=== PATIENT | female | born 1990 | race Caucasian/White ===

== ENCOUNTER → 2018-05-16 10:09 | Outpatient (CLI) | payer BC, SELFPAY ==
[2018-05-16 09:13] VITALS: BMI 48.2
[2018-05-16 10:37] LABS: Absolute Lymphocyte Count 1.91 X10^3/ul (0.83-4.51); Absolute Neutrophil Count 5.2 X10^3/uL (2.0-7.7); Basophil# 0.03 X10^3/uL; Basophil% 0.4 % (0-1); Eosinophils% 6.2 % (0-5); Hematocrit 40.5 % (37-47); Hemoglobin 12.1 g/dl (12.0-15.0); Lymphocyte # 1.91 X10^3/ul (4.0); Lymphocyte % 23.7 % (19-41); Mean Corp Hgb Conc 29.9 g/gl (32-36); Mean Corpuscular Hgb 21.6 pg (27.0-32.0); Mean Corpuscular Volume 72.3 fL (81-99); Mean Platelet Vol. 10.8 fl (6.2-12.0); Monocyte# 0.43 X10^3/uL; Monocyte% 5.3 % (0-10); Neutrophil # 5.16 X10^3/uL (2.7-7.7); Neutrophil % 64.2 % (47-70); POSITIVE COUNT NO; POSITIVE DIFFERENTIAL NO; POSITIVE MORPHOLOGY YES; Platelet Count 286 K/mm3 (150-450); RBC Distribution Width SD 39.3 fl (35.1-43.9); White Blood Count 8.1 K/mm3 (4.4-11.0)
[2018-05-16 10:38] LABS: Differential Indicated SCAN CRITERIA MET
[2018-05-16 10:48] LABS: ALB/GLOB Ratio 0.9 RATIO (0.9-2.4); AST(SGOT) 103 U/L (15-37); Alanine Aminotransfer ALT/SGPT 93 U/L (13-56); Albumin, Serum 3.6 g/dL (3.2-5.0); Alkaline Phosphatase 66 U/L (45-117); Anion Gap 9 (5-15); BUN 13 mg/dL (7-18); BUN/Creat Ratio 17.1 RATIO (10-20); Calcium,Total 9.4 mg/dL (8.5-10.1); Chloride 102 mmol/L (98-107); Creatinine, Serum 0.76 mg/dL (0.55-1.02); EST Glomerular Filtration Rate 96 mL/min (>60); Est Glom Filt Rate - Afr Amer 116 mL/min (>60); Globulin 4.2 g/dL (2.2-4.2); Glucose 150 mg/dL (74-106); Potassium 4.4 mmol/L (3.5-5.1); Protein, Total 7.8 g/dL (6.4-8.2); Sodium Level 135 mmol/L (136-145)
[2018-05-16 10:50] LABS: hCG Titer Quant., Serum 33 mIU/mL (<9 non-preg)
[2018-05-16 13:51] LABS: Protein, Urine (Random) 66.8 mg/dL (<11.9); Protein:Creat Ratio 189 mg/g CRE (0-200)
== END ==
PROVIDERS: Referring Provider Nurse Practitioner Women's Health; Visit Provider Nurse Practitioner Women's Health
DX: O16.1 Unspecified maternal hypertension, first trimester (principal); O24.911 Unspecified diabetes mellitus in pregnancy, first trimester; Z3A.00 Weeks of gestation of pregnancy not specified
CPT/HCPCS: 36415; 80053; 82570; 84156; 84702; 85025

== ENCOUNTER → 2018-05-16 14:43 | Outpatient (CLI) | payer BC, SELFPAY ==
[2018-05-16 09:13] VITALS: BMI 48.2
--- NOTE | 2018-05-16 14:47 | US_ITS ---
STUDY: FIRST TRIMESTER OBSTETRICAL ULTRASOUND REASON FOR EXAM: Female, 28 years old. Gestational age. History of hypertension. Beta hCG of 33. LMP: April 17, 2018 TECHNIQUE: Transabdominal and Transvaginal TECHNICAL QUALITY: Adequate. PRIOR ULTRASOUND: None. FINDINGS: There is no demonstrated intrauterine gestational sac. The estimated gestation age (EGA) by LMP is 4 weeks, 1 days. The estimated date of delivery (CRIS) by LMP is January 22, 2019. The uterus measures 9.9 x 6.7 x 5.8 cm. The hyperechoic endometrium is prominent measuring 17.8 mm in thickness. There is no demonstrated uterine fibroid. The cervix is closed. The right ovary measures 3.3 x 2.4 x 2.3 cm. There is a 1.4 x 2.0 x 2.0 cm cyst/follicle. There is no visualized right adnexal mass or complex lesion. The left ovary measures 3.4 x 2.7 x 2.0 cm. There is no left ovarian cyst. There is no visualized left adnexal mass or complex lesion. There is no fluid in the cul de sac. US/Transvaginal w/Preg US IMPRESSION: 1. No evidence of intrauterine or ectopic . 2. Normal uterus. 3. Right ovarian cyst/dominant follicle. Electronically Signed: Raoul Rivera DO at 16:34 EST Tel [phone], Service support ,
== END ==
PROVIDERS: Referring Provider Nurse Practitioner Women's Health; Visit Provider Nurse Practitioner Women's Health
DX: I10 Essential (primary) hypertension (principal)
CPT/HCPCS: 76817

== ENCOUNTER 2018-05-22 16:52 | Emergency (ER) | payer BC, SELFPAY ==
[2018-05-20 08:51] VITALS: BMI 48.2
[2018-05-22 16:54] VITALS: BP 197/106; PULSE 105; RESP 16; TEMP 36.7; O2SAT 98; BMI 47.0
[2018-05-22 17:53] LABS: Absolute Lymphocyte Count 1.91 X10^3/ul (0.83-4.51); Absolute Neutrophil Count 4.8 X10^3/uL (2.0-7.7); Basophil# 0.02 X10^3/uL; Basophil% 0.3 % (0-1); Differential Indicated SCAN CRITERIA MET; Eosinophils% 5.3 % (0-5); Hematocrit 38.1 % (37-47); Hemoglobin 11.5 g/dl (12.0-15.0); Lymphocyte # 1.91 X10^3/ul (4.0); Lymphocyte % 25.3 % (19-41); Mean Corp Hgb Conc 30.2 g/gl (32-36); Mean Corpuscular Hgb 21.9 pg (27.0-32.0); Mean Corpuscular Volume 72.7 fL (81-99); Mean Platelet Vol. 10.1 fl (6.2-12.0); Monocyte# 0.39 X10^3/uL; Monocyte% 5.2 % (0-10); Neutrophil % 63.4 % (47-70); POSITIVE COUNT NO; POSITIVE DIFFERENTIAL NO; POSITIVE MORPHOLOGY YES; Platelet Count 279 K/mm3 (150-450); RBC Distribution Width CV 16.3 % (11.6-14.6); Red Blood Count 5.24 M/mm3 (4.2-5.4); White Blood Count 7.6 K/mm3 (4.4-11.0)
[2018-05-22 18:01] LABS: Anion Gap 12 (5-15); BUN 13 mg/dL (7-18); BUN/Creat Ratio 15.9 RATIO (10-20); Calcium,Total 9.2 mg/dL (8.5-10.1); Chloride 105 mmol/L (98-107); Creatinine, Serum 0.82 mg/dL (0.55-1.02); EST Glomerular Filtration Rate 88 mL/min (>60); Est Glom Filt Rate - Afr Amer 107 mL/min (>60); Estimated Creatinine Clearance 99.33 ml/min; Glucose 247 mg/dL (74-106); Potassium 3.6 mmol/L (3.5-5.1); Sodium Level 136 mmol/L (136-145)
[2018-05-22 18:09] LABS: Differential Comment SCANNED
[2018-05-22 18:26] LABS: hCG Titer Quant., Serum 83 mIU/mL (<9 non-preg)
--- NOTE | 2018-05-22 19:29 | ED.VISSUMM ---
- ER Visit Summary Date of Service: 05/22/18 Chief Complaint: Vaginal bleeding History of Present Illness: The patient is a 28 F who is here for vaginal bleeding. The patient is early in may be 5 weeks. She had an ultrasound less than 1 week ago that did not show any evidence of . Her quant was 33 at that time. Her blood type is a negative. She says her bleeding is about the level of a normal period for her. No other associated symptoms currently. Physical Examination: Afebrile. Blood pressure 197/106. Heart rate 105. Otherwise vitals normal. Alert and oriented. No acute distress. Heart regular. Lungs clear. Abdomen soft and nontender. Extremities nontender with no edema. Skin appears normal. Test Results: Quant is 83. Urinalysis pending. Hemoglobin 11.5 and CO2 is 19. Emergency Department Course and Treatment: Patient was discussed with Dr. Fernández. She advised do not repeat the ultrasound at this point. Patient will need a repeat quant in 48 hours, and I ordered this. The patient will have this done as an outpatient. She was advised to follow-up with Dr. Fernández early next week. She should return if she has increasing bleeding, greater than 2 pads saturated per hour for 2 hours or more. Return for any other issues. She was treated with RhoGam. Patient has known hypertension. Repeat was 173/98. 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 Treatment Plan: As above Disposition: Discharge Impression: 1. Threatened 2. Hypertension This note was generated with [employer] software. It may contain incorrect words, spelling, and punctuation that were not noted in review of the chart prior to signing ED Disposition - Plan for ED Patient: Chief Complaint: Vag Bld, Preg Referrals: Care Physician,No Primary [Primary Care Provider] -
--- NOTE | 2018-05-22 19:33 | ED.DCSUM_ITS ---
- ER Visit Summary Date of Service: 05/22/18 Chief Complaint: Vaginal bleeding History of Present Illness: The patient is a 28 F who is here for vaginal bleeding. The patient is early in may be 5 weeks. She had an ultrasound less than 1 week ago that did not show any evidence of . Her quant was 33 at that time. Her blood type is a negative. She says her bleeding is about the level of a normal period for her. No other associated symptoms currently. Physical Examination: Afebrile. Blood pressure 197/106. Heart rate 105. Otherwise vitals normal. Alert and oriented. No acute distress. Heart regular. Lungs clear. Abdomen soft and nontender. Extremities nontender with no edema. Skin appears normal. Test Results: Quant is 83. Urinalysis pending. Hemoglobin 11.5 and CO2 is 19. Emergency Department Course and Treatment: Patient was discussed with Dr. Fernández. She advised do not repeat the ultrasound at this point. Patient will need a repeat quant in 48 hours, and I ordered this. The patient will have this done as an outpatient. She was advised to follow-up with Dr. Fernández early next week. She should return if she has increasing bleeding, greater than 2 pads saturated per hour for 2 hours or more. Return for any other issues. She was treated with RhoGam. Patient has known hypertension. Repeat was 173/98. 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 Treatment Plan: As above Disposition: Discharge Impression: 1. Threatened 2. Hypertension This note was generated with [employer] software. It may contain incorrect words, spelling, and punctuation that were not noted in review of the chart prior to signing ED Disposition - Plan for ED Patient: Chief Complaint: Vag Bld, Preg Referrals: Care Physician,No Primary [Primary Care Provider] -
--- NOTE | 2018-05-22 19:33 | ED.DEP ---
ED Disposition - Plan for ED Patient: Chief Complaint: Vag Bld, Preg Instructions: ED Miscarriage Poss Referrals: Lashell Fernández MD [STAFF PHYSICIAN] - Additional Instructions: repeat hcg quant in 48 hours, follow up with ob next week
[2018-05-22 19:34] VITALS: BP 173/98; PULSE 96; RESP 16; O2SAT 97
[2018-05-22 21:39] LABS: Bacteria 0 SEEN /hpf (None Seen); Mucous, Urine 0 SEEN /hpf (<or=2+); White Blood Cells 0 SEEN /hpf (0-5)
[2018-05-22 21:44] LABS: Color, Urine Yellow (Yellow); Glucose, Dipstick 1000 mg/dl (Normal); Ketone-Dipstick 15 mg/dl (Negative); Leukocyte Esterase-Dipstick Negative /ul (Negative); Nitrite-Dipstick Negative (Negative); Occult Blood-Urine 150 /ul (Negative); Protein-Dipstick 30 mg/dl (Negative); Urine Bilirubin Dipstick Negative (Negative); Urine Clarity Clear (Clear); Urine Urobilinogen Normal (Normal)
[2018-05-22 21:48] LABS: Calcium Oxalate Crystals Ur 1+ /hpf (<or=2+); Red Blood Cells-Urine 0-5 SEEN /hpf (0-5); Squamous Epithelial Cells - UA 0-5 SEEN /hpf (5-10)
--- OUTSIDE RECORDS SUMMARY | 2018-07-27 17:03 | XMS RPT_ITS ---
:1990 Author Organization OHIP Care Team Providers Name Role Phone Yulissa Sanchez Attending Unavailable YULISSA SANCHEZ D.O. Referring Unavailable Yulissa Sanchez Primary Care Unavailable Shaista Kuo Attending Unavailable Shaista Kuo Attending Unavailable Shaista Kuo Referring Unavailable Primay Care Physicia, No Primary Care Unavailable Shaista Kuo Attending Unavailable Shaista Kuo Referring Unavailable Primay Care Physicia, No Primary Care Unavailable Lashell Fernández Attending Unavailable Primay Care Physicia, No Referring Unavailable Primay Care Physicia, No Primary Care Unavailable Piotr Freeman Attending Unavailable Lashell Fernández Referring Unavailable Lashell Fernández Attending Unavailable Primay Care Physicia, No Referring Unavailable Lashell Fernández Attending Unavailable Primay Care Physicia, No Primary Care Unavailable PROBLEMS PROBLEMS DATE TYPE CONDITION / CODE ATTENDING STATUS SOURCE 05/27/2018 Unknown O03.9 - Complete or Marcanthony, Active [place] unspecified [facility] spontaneous Hospital without Repository complication / O03.9(ICD-10) 05/16/2018 Unknown E11.9 - Type 2 [place], Molly Active [place] diabetes mellitus [facility] without Hospital complications / Repository E11.9(ICD-10) 05/16/2018 Unknown I10 - Essential AyaanShaista Active [place] (primary) [facility] hypertension / Hospital I10(ICD-10) Repository 05/16/2018 Unknown Z34.90 - Encounter AyaanShaista gordon Active [place] for supervision of [facility] normal , Hospital unspecified, Repository unspecified trimester / Z34.90(ICD-10) 05/16/2018 Unknown N91.2 - Amenorrhea, GreenfieldShaista gordon Active [place] unspecified / Community N91.2(ICD-10) Hospital Repository 08/01/2017 Admitting Chronic fatigue, [facility] Diagnosis unspecified / Yulissa System R53.82(ICD-10) Repository 08/01/2017 Admitting Type 2 diabetes [facility] [employer] Diagnosis mellitus without Yulissa System complications / Repository E11.9(ICD-10) 08/01/2017 Admitting senior living (current) [facility] [employer] Diagnosis use of insulin / Yulissa System Z79.4(ICD-10) Repository PROCEDURES PROCEDURES No Procedure Records FoundRESULTS RESULTS SPANISH SPEAKING NANNY OFFICE VISIT Observed: 05/27/2018 Status: F Source: [place] REPORT 5:01 PM [facility] REPOSITORY [facility] [address] [place] [address] [address] [place] [address] OFFICE VISIT Date of Service: 05/27/18 MR#: [id number] Acct: [id number] Name: VISHAL DIAZ Rep #: [id number] : 1990 Provider: Lashell Fernández MD Age/Sex: 28/F Location: [facility] Status: Signed Intake Vital Signs05/27/18 Body Mass Index (BMI) 47.0 05/27/18 Height 5 ft 7 in 05/27/18 Weight: 309 lb 05/27/18 Body Mass Index (BMI) 48.4 05/27/18 Blood Pressure 168/116 H Intake Visit Reasons: EARLY OB - ER FOLLOW UP FOR BLEEDING Flue Lining Dipper Required: No Is patient in pain?: No Allergies etonogestrel [From Nexplanon] Allergy (Verified 05/27/18 12:26) Swelling levonorgestrel [From Mirena] Allergy (Verified 05/27/18 12:26) Other Medications labetalol 200 mg tablet 200 mg PO BID #60 tab 05/16/18 [Rx Confirmed 05/27/18] citalopram 20 mg tablet 20 mg PO DAILY #30 tab 05/27/18 [Rx Confirmed 05/27/18] Is last menstrual period known: Yes Last Menstral Period: 04/17/18 Post menopausal: No Patient : Yes : No [facility] Medical History Hypertension (Chronic) Diabetes (Chronic) Abnormal Pap smear of cervix (Acute) Surgical History H/O removal of cyst (Resolved) S/P (Resolved) Family History Father Diabetes Kidney disease Hypertension Heart disease Social History Smoking Status: Current every day smoker alcohol intake: never substance use type: marijuana, other details: rare use caffeine: Yes what type of physical activity do you participate in: none seatbelt use: always do you feel safe at home: Yes additional social history: - Nikol[facility] EARLY OB - ER FOLLOW UP FOR BLEEDING: Details: VISHAL DIAZ is a 28 year old who presents for follow up of possible miscarriage. she has had bleeding persistent and heavy at times. she had a quant of 83 last week. she is stil having some left sided pain at ttimes and is wanting to conceive. she is not checking her blood sugars regularly. Female Reproductive History Last Menstral Period: 04/17/18 Cycle Length: 21-35 Pregancy History 4 Elective abortions Hx Para 2 Spontaneous abortions 2 Past Pregnancies Del. DateName GA/Weeks Outcome Route Bth WeighInfant GeLabor LgtAnesthesiDel LocatProvider FOB t n h a n Delivery Date: 10/21/16 No notes to display Delivery Date: 08/17/13 On 05/16/18 @ 09:12 Yumi Velázquez Pre-eclampsia ROS Const Constitutional: Denies poor appetite, headache(s), fever(s), increased appetite, weight gain, weight loss or fatigue GI GI: Reports as per HPI; denies vomiting, nausea, abdominal pain or constipation Exam Const General: cooperative, healthy appearing, comfortable, no acute distress, well developed Nutritional Appearance: average body habitus Orientation: alert HENMT Head: normal to inspection, normocephalic Neck Neck: normal visual inspection, trachea midline Thyroid: thyroid normal Resp Effort AND Inspection: normal respiratory effort Assessment AND Plan Problems 1. Complete O03.9 Plan recommend checking cbc and repeating quant- likely complete miscarriage. she is wanting to conceive declines control. i recommend referral to PCP for HTN and diabetes management. Orders Orders: Medications New: Coding Level of Care Code Off vis,est,level 3 Diagnoses Complete O03.9 05/27/18 1701 <Electronically signed by Lashell Fernández MD> Date Lashell Fernández MD Cosigner Signature: Date (if applicable) CC: CBC W/DIFF, AUTOMATED Collected: 05/27/2018 Status: F Source: [place] 1:17 PM [facility] REPOSITORY TYPE CODE TESTS RESULT OUT OF RANGE REFERENCE UNITS LAB L100.1000 4.4-11.0 K/mm3 Normal WBC 7.5 LAB L100.1200 4.2-5.4 M/mm3 Normal RBC 5.28 LAB L100.1300 12.0-15.0 g/dl Low HGB 11.7 LAB L100.1400 37-47 % Normal HCT 39.1 LAB L100.1500 81-99 fL Low MCV 74.1 LAB L100.1600 27.0-32.0 pg Low MCH 22.2 LAB L100.1700 32-36 g/gl Low MCHC 29.9 LAB L100.1810 11.6-14.6 % High RDW CV 17.6 LAB L100.1820 35.1-43.9 fl High RDW SD 45.6 LAB L100.1900 150-450 K/mm3 Normal PLT 268 LAB L100.2000 6.2-12.0 fl Normal MPV 10.6 LAB L100.2100 47-70 % Normal NEUT% 57.3 LAB L100.2200 19-41 % Normal LY% 27.0 LAB L100.2300 0-10 % Normal MONO% 5.7 LAB L100.2400 0-5 % High EO% 8.9 LAB L100.2500 0-1 % Normal BASO% 0.4 LAB L100.2550 0.0-0.9 % Normal IM GRAN % 0.700 Result Comment: IG% - Immature Granulocytes (promyelocytes, myelocytes and metamyelocytes) > 1% indicates that a LEFT SHIFT is Present. LAB L100.2620 2.0-7.7 X10 3/uL Absolute Neut Normal 4.3 LAB L100.2720 0.83-4.51 X10 3/ul Absolute Lymph Normal 2.03 LAB L100.5500 ADEQ PLT EST Normal ADEQUATE LAB L100.7300 ANISO Normal RARE LAB L100.7600 HYPOCHROMASIA Normal RARE Performed By: #### L100.0100 #### [facility] [address] [place], [address] HCG TITER QUANT., Collected: 05/27/2018 Status: F Source: [place] SERUM 1:17 PM [facility] REPOSITORY TYPE CODE TESTS RESULT OUT OF RANGE REFERENCE UNITS LAB L700.8000 <9 non-preg mIU/mL Normal HCG 4 QUANT. Performed By: #### L700.8000 #### [facility] [address] [place], [address] EMERGENCY DEPARTMENT Observed: 05/22/2018 Status: F Source: [place] SUMMARY 11:50 PM [facility] REPOSITORY [facility] Medical Records Department [address] [place] [address] Emergency Department Summary 05/22/18 192 MR#: [id number] Acct: [id number] Name: VISHAL DIAZ Rep #: [id number] : 1990 28 From: Piotr Freeman MD PCP: Care Physician, No Primary Status: DEP ER - ER Visit Summary Date of Service: 05/22/18 Chief Complaint: Vaginal bleeding History of Present Illness: The patient is a 28 F who is here for vaginal bleeding. The patient is early in may be 5 weeks. She had an ultrasound less than 1 week ago that did not show any evidence of . Her quant was 33 at that time. Her blood type is a negative. She says her bleeding is about the level of a normal period for her. No other associated symptoms currently. Physical Examination: Afebrile. Blood pressure 197/106. Heart rate 105. Otherwise vitals normal. Alert and oriented. No acute distress. Heart regular. Lungs clear. Abdomen soft and nontender. Extremities nontender with no edema. Skin appears normal. Test Results: Quant is 83. Urinalysis pending. Hemoglobin 11.5 and CO2 is 19. Emergency Department Course and Treatment: Patient was discussed with Dr. Fernández. She advised do not repeat the ultrasound at this point. Patient will need a repeat quant in 48 hours, and I ordered this. The patient will have this done as an outpatient. She was advised to follow-up with Dr. Fernández early next week. She should return if she has increasing bleeding, greater than 2 pads saturated per hour for 2 hours or more. Return for any other issues. She was treated with RhoGam. Patient has known hypertension. Repeat was 173/98. Her SPANISH SPEAKING NANNY is aware of her hypertension. Treatment Plan: As above Disposition: Discharge Impression: 1. Threatened 2. Hypertension This note was generated with Skytap dictation software. It may contain incorrect words, spelling, and punctuation that were not noted in review of the chart prior to signing ED Disposition - Plan for ED Patient: Chief Complaint: Vag Bld, Preg Referrals: Care Physician,No Primary [Primary Care Provider] - What to do if you have Problems For any increased pain, shortness of breath, bleeding, nausea or vomiting, chest pain, or any unexpected problems, contact your Primary Care Provider. Call [facility] ([phone]) or report to the closest Emergency Room. Call 911 if necessary. 05/22/18 8250 <Electronically signed by Piotr Freeman MD> Date Piotr Freeman MD Cosigner Signature (If Indicated): Date CC: No Primary Care Physician DISCHARGE INSTRUCTION Observed: 05/22/2018 Status: F Source: [place] 11:50 PM [facility] REPOSITORY [facility] Medical Records Department [address] [place] [address] Discharge Instruction 05/22/18 193 MR#: [id number] Acct: [id number] Name: VISHAL DIAZ Rep #: [id number] : 1990 28 From: Piotr Freeman MD PCP: Care Physician, No Primary Status: DEP ER ED Disposition - Plan for ED Patient: Chief Complaint: Vag Bld, Preg Instructions: ED Miscarriage Poss Referrals: Lashell Fernández MD [STAFF PHYSICIAN] - Additional Instructions: repeat hcg quant in 48 hours, follow up with ob next week What to do if you have Problems For any increased pain, shortness of breath, bleeding, nausea or vomiting, chest pain, or any unexpected problems, contact your Primary Care Provider. Call [facility] ([phone]) or report to the closest Emergency Room. Call 911 if necessary. 05/22/18 2530 <Electronically signed by Piotr Freeman MD> Date Piotr Freeman MD Cosigner Signature (If Indicated): Date CC: No Primary Care Physician URINALYSIS, COMPLETE Collected: 05/22/2018 Status: F Source: [place] [facility] Order Comment: Order Date: 05/22/18 How was Urine Obtained? CLEAN CATCH TYPE CODE TESTS RESULT OUT OF RANGE REFERENCE UNITS LAB L400.3000 Yellow COLOR Normal Yellow LAB L400.3050 Clear Normal CLARITY Clear LAB L400.3200 Normal mg/dl High GLUCOSE, UR 1000 LAB L400.3300 Negative mg/dL Normal BILIRUBIN URINE Negative LAB L400.3400 Negative mg/dl High 15 KETONE UR LAB L400.3465 1.002-1.030 Normal SP.GR. DIPSTX 1.030 LAB L400.3550 5.0 - 8.0 pH UR Normal 5.0 LAB L400.3600 Negative mg/dl High PROT 30 DIPSTX LAB L400.3700 Normal mg/dl Normal UROBILI Normal LAB L400.3750 Negative Normal NITRITE UR Negative LAB L400.3780 Negative /ul High OCCULT BLOOD-UR 150 LAB L400.3800 Negative /ul LEUK Normal ESTERASE Negative LAB L400.4050 0-5 /hpf WBC 0 Normal SEEN LAB L400.4100 0-5 /hpf Normal RBC-UA 0-5 SEEN LAB L400.4150 5-10 /hpf SQUAM Normal EPI 0-5 SEEN LAB L400.4300 None Seen /hpf 0 Normal BACTERIA SEEN LAB L400.4350 <or=2+ /hpf 0 Normal MUCUS, URINE SEEN LAB L400.4700 <or=2+ /hpf CA OX 1+ Normal CRYSTAL Performed By: #### L400.0001 #### [facility] [address] [facility] [place], [place], [address] ABO RH BLOOD TYPE, Collected: 05/22/2018 Status: F Source: [place] PATIENT 8:45 PM [facility] REPOSITORY TYPE CODE TESTS RESULT OUT OF RANGE REFERENCE UNITS LAB B10.0800 Test Normal BLOOD not performed TYPE GEL Performed By: #### B10.0010 #### [facility] [address] [facility] [place], [address] ABORH BLOOD TYPE, Collected: 05/22/2018 Status: F Source: [place] PATIENT 8:45 PM [facility] REPOSITORY TYPE CODE TESTS RESULT OUT OF RANGE REFERENCE UNITS LAB B100.1300 A Normal BLOOD NEGATIVE TYPE PT Performed By: #### B100.0000 #### [facility] [address] [place], [place], [address] CBC W/DIFF, AUTOMATED Collected: 05/22/2018 Status: F Source: [place] 5:35 PM [facility] REPOSITORY TYPE CODE TESTS RESULT OUT OF RANGE REFERENCE UNITS LAB L100.1000 4.4-11.0 K/mm3 Normal WBC 7.6 LAB L100.1200 4.2-5.4 M/mm3 Normal RBC 5.24 LAB L100.1300 12.0-15.0 g/dl Low HGB 11.5 LAB L100.1400 37-47 % Normal HCT 38.1 LAB L100.1500 81-99 fL Low MCV 72.7 LAB L100.1600 27.0-32.0 pg Low MCH 21.9 LAB L100.1700 32-36 g/gl Low MCHC 30.2 LAB L100.1810 11.6-14.6 % High RDW CV 16.3 LAB L100.1820 35.1-43.9 fl Normal RDW SD 42.0 LAB L100.1900 150-450 K/mm3 Normal PLT 279 LAB L100.2000 6.2-12.0 fl Normal MPV 10.1 LAB L100.2100 47-70 % Normal NEUT% 63.4 LAB L100.2200 19-41 % Normal LY% 25.3 LAB L100.2300 0-10 % Normal MONO% 5.2 LAB L100.2400 0-5 % High EO% 5.3 LAB L100.2500 0-1 % Normal BASO% 0.3 LAB L100.2550 0.0-0.9 % Normal IM GRAN % 0.500 Result Comment: IG% - Immature Granulocytes (promyelocytes, myelocytes and metamyelocytes) > 1% indicates that a LEFT SHIFT is Present. LAB L100.2620 2.0-7.7 X10 3/uL Normal Absolute Neut 4.8 LAB L100.2720 0.83-4.51 X10 3/ul Normal Absolute Lymph 1.91 LAB L100.4500 Normal SMEAR COMMENT SCANNED Result Comment: AUTO DIFF OK Performed By: #### L100.0100 #### [facility] [address] [place], [address] BASIC METABOLIC Collected: 05/22/2018 Status: F Source: [place] PROFILE (BMP) 5:35 PM [facility] REPOSITORY TYPE CODE TESTS RESULT OUT OF RANGE REFERENCE UNITS LAB L501.0100 74-106 mg/dL High GLU 247 Result Comment: Glucose result greater than or equal to 200 mg/dL suggests DIABETES MELLITUS per A.D.A. criteria. Please note revised GLUCOSE reference range effective 2017. LAB L501.1000 7-18 mg/dL Normal BUN 13 LAB L501.1100 0.55-1.02 mg/dL Normal CREAT,SERUM 0.82 Result Comment: The validity of the calculated GFR AND GFRAA in patients over 70 years has not been determined. Clinical correlation is essential. LAB L501.1110 >60 mL/min Normal EST GFR 88 Result Comment: Non- GFR Calc LAB L501.1115 >60 mL/min Normal EST GFR - AA 107 Result Comment: GFR Calc LAB L501.1255 ml/min Normal Estimated CRCL 99.33 LAB L501.1300 10-20 RATIO Normal BUN/CRE 15.9 LAB L501.2200 8.5-10 mg/dL Normal .1 CA 9.2 LAB L501.5300 136-14 mmol/L Normal 5 NA 136 LAB L501.5600 3.5-5. mmol/L Normal 1 K 3.6 LAB L501.5900 98-107 mmol/L Normal CL 105 LAB L501.6100 21.0-3 mmol/L Low 2.0 CO2 19.0 LAB L501.6200 5-15 Normal GAP 12 Performed By: #### L500.2500 #### [facility] [address] [place], [address] HCG TITER QUANT., Collected: 05/22/2018 Status: F Source: [place] SERUM 5:35 PM [facility] REPOSITORY TYPE CODE TESTS RESULT OUT OF RANGE REFERENCE UNITS LAB L700.8000 <9 non-preg mIU/mL High HCG 83 QUANT. Performed By: #### L700.8000 #### [facility] [address] [place], [address] RHOGAM Collected: 05/22/2018 Status: F Source: [place] 5:15 PM [facility] REPOSITORY TYPE CODE TESTS RESULT OUT OF REFERENCE UNITS RANGE LAB U100.2500 [id number] TRANSFUSED PRODUCT: Rho(D) Immune Globulin RhoGam COUNT: 1 Performed By: #### U100.2500 #### [facility] - refer to report for specific site OFFICE VISIT REPORT Observed: 05/20/2018 Status: F Source: [place] 1:50 PM [facility] REPOSITORY [address] [place] [address] OFFICE VISIT Date of Service: 05/20/18 MR#: [id number] Acct: [id number] Patient: LILLY DIAZANDA Riki Rep #: [id number] : 1990 Provider: Lashell Fernández MD Age/Sex: 28/F Location: [facility] Status: Signed Intake Vital Signs05/20/18 Body Mass Index (BMI) 48.2 05/20/18 Height 5 ft 7 in 05/20/18 Blood Pressure 168/102 H Intake Visit Reasons: BP CHECK Flue Lining Dipper Required: No Allergies No Known Allergies Allergy (Verified 05/20/18 08:51) Medications labetalol 200 mg tablet 200 mg PO BID #60 tab 05/16/18 [Rx Confirmed 05/20/18] Post menopausal: No Patient : Yes 05/20/18 1350 <Electronically signed by Lashell Fernández MD> Date Lashell Fernández MD Cosigner Signature: Date (if applicable) CC: TRANSVAGINAL W/PREG US Observed: 05/16/2018 Status: F Source: [place] 2:47 PM [facility] REPOSITORY [facility] Imaging Services [address] [place] [address] Transvaginal w/Preg US MR#: [id number] Acct: [id number] Name: VISHAL DIAZ Rep #: [id number] : 1990 F 28 From: Raoul Rivera DO PCP: Care Physician, No Primary Status: REG CLI Study: Transvaginal w/Preg US Date of Exam: 05/16/18 Exam# [id number] Ordering Dr: Shaista Kuo BARBER STYLIST-C STUDY: FIRST TRIMESTER OBSTETRICAL ULTRASOUND REASON FOR EXAM: Female, 28 years old. Gestational age. History of hypertension. Beta hCG of 33. LMP: April 17, 2018 TECHNIQUE: Transabdominal and Transvaginal TECHNICAL QUALITY: Adequate. PRIOR ULTRASOUND: None. FINDINGS: There is no demonstrated intrauterine gestational sac. The estimated gestation age (EGA) by LMP is 4 weeks, 1 days. The estimated date of delivery (CRIS) by LMP is January 22, 2019. The uterus measures 9.9 x 6.7 x 5.8 cm. The hyperechoic endometrium is prominent measuring 17.8 mm in thickness. There is no demonstrated uterine fibroid. The cervix is closed. The right ovary measures 3.3 x 2.4 x 2.3 cm. There is a 1.4 x 2.0 x 2.0 cm cyst/follicle. There is no visualized right adnexal mass or complex lesion. The left ovary measures 3.4 x 2.7 x 2.0 cm. There is no left ovarian cyst. There is no visualized left adnexal mass or complex lesion. There is no fluid in the cul de sac. US/Transvaginal w/Preg US IMPRESSION: 1. No evidence of intrauterine or ectopic . 2. Normal uterus. 3. Right ovarian cyst/dominant follicle. Electronically Signed: Raoul Rivera DO at 16:34 EST Tel [phone], Service support , CC: TIMMY Kuo; No Primary Care Physician Commercial Interior Designer: Signed PROTEIN+CREATININE Collected: Status: F Source: [place] RATIO,URINE 05/16/2018 1:24 PM [facility] REPOSITORY TYPE CODE TESTS RESULT OUT OF RANGE REFERENCE UNITS LAB L501.1200 NO RANGE EST. mg/dL Normal UR CREAT 354.00 LAB L501.1930 <11.9 mg/dL High 66.8 PROTEIN,UR.R AN. LAB L501.1940 0-200 mg/g CRE Normal PROT:CRE 189 RATIO Performed By: #### L501.0900 #### [facility] [address] [place], [address] CBC W/DIFF, AUTOMATED Collected: 05/16/2018 Status: F Source: [place] 10:14 AM [facility] REPOSITORY TYPE CODE TESTS RESULT OUT OF RANGE REFERENCE UNITS LAB L100.1000 4.4-11.0 K/mm3 Normal WBC 8.1 LAB L100.1200 4.2-5.4 M/mm3 High RBC 5.60 LAB L100.1300 12.0-15.0 g/dl Normal HGB 12.1 LAB L100.1400 37-47 % Normal HCT 40.5 LAB L100.1500 81-99 fL Low MCV 72.3 LAB L100.1600 27.0-32.0 pg Low MCH 21.6 LAB L100.1700 32-36 g/gl Low MCHC 29.9 LAB L100.1810 11.6-14.6 % High RDW CV 15.0 LAB L100.1820 35.1-43.9 fl Normal RDW SD 39.3 LAB L100.1900 150-450 K/mm3 Normal PLT 286 LAB L100.2000 6.2-12.0 fl Normal MPV 10.8 LAB L100.2100 47-70 % Normal NEUT% 64.2 LAB L100.2200 19-41 % Normal LY% 23.7 LAB L100.2300 0-10 % Normal MONO% 5.3 LAB L100.2400 0-5 % High EO% 6.2 LAB L100.2500 0-1 % Normal BASO% 0.4 LAB L100.2550 0.0-0.9 % Normal IM GRAN % 0.200 Result Comment: IG% - Immature Granulocytes (promyelocytes, myelocytes and metamyelocytes) > 1% indicates that a LEFT SHIFT is Present. LAB L100.2620 2.0-7.7 X10 3/uL Normal Absolute Neut 5.2 LAB L100.2720 0.83-4.51 X10 3/ul Normal Absolute Lymph 1.91 Performed By: #### L100.0100 #### [facility] [address] [place], [address] COMPREHENSIVE METABOLIC Collected: 05/16/2018 Status: F Source: [place] [facility] 10:14 AM [facility] REPOSITORY TYPE CODE TESTS RESULT OUT OF RANGE REFERENCE UNITS LAB L501.0100 74-106 mg/dL High GLU 150 Result Comment: Fasting Glucose result greater than or equal to 126 mg/dL suggests DIABETES MELLITUS per A.D.A. criteria. Please note revised GLUCOSE reference range effective 2017. LAB L501.1000 7-18 mg/dL Normal BUN 13 LAB L501.1100 0.55-1.02 mg/dL Normal CREAT,SERUM 0.76 Result Comment: The validity of the calculated GFR AND GFRAA in patients over 70 years has not been determined. Clinical correlation is essential. LAB L501.1110 >60 mL/min Normal EST GFR 96 Result Comment: Non- GFR Calc LAB L501.1115 >60 mL/min Normal EST GFR - AA 116 Result Comment: GFR Calc LAB L501.1300 10-20 RATIO Normal BUN/CRE 17.1 LAB L501.1500 6.4-8.2 g/dL T Normal PROT 7.8 LAB L501.1800 3.2-5.0 g/dL Normal ALB 3.6 LAB L501.1950 2.2-4.2 g/dL Normal GLOB 4.2 LAB L501.2000 0.9-2.4 RATIO Normal A/G 0.9 LAB L501.2200 8.5-10.1 mg/dL CA Normal 9.4 LAB L501.4100 15-37 U/L High AST 103 LAB L501.4305 45-117 U/L Normal ALK P 66 LAB L501.4405 13-56 U/L High ALT 93 LAB L501.4600 0.20-1.00 mg/dL T Normal BILI 0.50 LAB L501.5300 136-145 mmol/L Low NA 135 LAB L501.5600 3.5-5.1 mmol/L K Normal 4.4 LAB L501.5900 98-107 mmol/L CL Normal 102 LAB L501.6100 21.0-32.0 mmol/L Normal CO2 24.0 LAB L501.6200 5-15 Normal GAP 9 Performed By: #### L500.4050 #### [facility] [address] [place], [address] HCG TITER QUANT., Collected: 05/16/2018 Status: F Source: [place] SERUM 10:14 AM [facility] REPOSITORY TYPE CODE TESTS RESULT OUT OF RANGE REFERENCE UNITS LAB L700.8000 <9 non-preg mIU/mL High HCG 33 QUANT. Performed By: #### L700.8000 #### [facility] [address] [place], [address] SPANISH SPEAKING NANNY OFFICE VISIT Observed: 05/16/2018 Status: F Source: [place] REPORT 10:04 AM [facility] REPOSITORY [facility] [address] [place] [address] OFFICE VISIT Date of Service: 05/16/18 MR#: [id number] Acct: [id number] Name: VISHAL DIAZ Rep #: [id number] : 1990 Provider: TIMMY Kuo Age/Sex: 28/F Location: [facility] Status: Signed Intake Vital Signs05/16/18 Height 5 ft 7 in 05/16/18 Weight: 307 lb 8 oz 05/16/18 Body Mass Index (BMI) 48.2 05/16/18 Blood Pressure 178/110 H Intake Visit Reasons: PAINFUL/HEAVY PERIODS Flue Lining Dipper Required: No Is patient in pain?: No Allergies No Known Allergies Allergy (Verified 05/16/18 09:05) Medications labetalol 200 mg tablet 200 mg PO BID #60 tab 05/16/18 [Rx Confirmed 05/16/18] Is last menstrual period known: Yes Last Menstral Period: 04/17/18 Post menopausal: No Patient : Yes : No [facility] Medical History Hypertension (Chronic) Diabetes (Chronic) Abnormal Pap smear of cervix (Acute) Surgical History H/O removal of cyst (Resolved) S/P (Resolved) Family History Father Diabetes Kidney disease Hypertension Heart disease Social History Smoking Status: Former smoker alcohol intake: never substance use type: marijuana, other details: rare use caffeine: Yes what type of physical activity do you participate in: none seatbelt use: always do you feel safe at home: Yes additional social history: - Nikolay HPI PAINFUL/HEAVY PERIODS: Details: VISHAL DIAZ is a 28 year old who presents for new patient originally scheduled to discuss heavy and painful menses but had positive urine tests X 3 this week. LMP 04/17/18=4wk 1day CRIS 01/24/19 She states that she is type 2 diabetic and history of hypertension. Stopped her labetalol and metformin in November. No reason given. She denies headaches or vision changes. She has a daughter 19 mo delivered in [place]. Grav 4/2 C section X 2 Female Reproductive History Last Menstral Period: 04/17/18 Pregancy History 4 Elective abortions Hx Para 2 Spontaneous abortions 2 Past Pregnancies Del. DateName GA/Weeks Outcome Route Bth WeighInfant GeLabor LgtAnesthesiDel LocatProvider FOB t n h a n Delivery Date: 10/21/16 No notes to display Delivery Date: 12/21/12 On 05/16/18 @ 09:12 Yumi Velázquez Pre-eclampsia ROS Const Constitutional: Reports as per HPI GI GI: Denies abdominal pain, change in bowel habits, nausea or vomiting : Reports vaginal itching Exam Const General: cooperative, no acute distress Nutritional Appearance: obese morbidy Orientation: oriented x3 Eyes General: appearance normal, both eyes and all related structures Resp Effort AND Inspection: normal respiratory effort Results BMSPREGUR Office , Urine Positive Last Edit by Yumi Velázquez on 05/16/18 09:46 Assessment AND Plan Problems 1. Early stage of Z34.90 2. Essential hypertension I10 3. Type 2 diabetes mellitus without complication, without long-term current use of insulin E11.9 4. Obesity, morbid, BMI 40.0-49.9 E66.01 Plan CBC, CMP, Urine protein creatinine ratio HCG quant BP checks at home-has cuff Seek medical attention with headache or vision changes Start vitamin Restart labetalol 200mg bid This patient was discussed with Dr. Jolene HOOD BP check 3 days. NOB 3-4 wk Orders Orders: Medications New: Discontinued: Coding Level of Care Code Off vis,new,level 3 Diagnoses Early stage of Z34.90 Essential hypertension I10 Hypertension type: essential hypertension Type 2 diabetes mellitus without complication, without long- term current use of insulin E11.9 Diabetes mellitus type: type 2 Diabetes mellitus cricket coach insulin use: without fpc use Diabetes mellitus complication status: without complication Obesity, morbid, BMI 40.0-49.9 E66.01 05/16/18 1004 <Electronically signed by hSaista POWER> Date Shaista POWER Cosigner Signature: Date (if applicable) CC: ALLERGIES ALLERGIES DATE TYPE / CODE NAME / CODE REACTION SEVERITY SOURCE 05/27/2018 Drug levonorgestre Other Unknown [facility] Allergy/4160 l/[id number]( Hospital 53404(SNOMED RXNORM) Repository CT) 05/27/2018 Drug etonogestrel/ Swelling Unknown [facility] Allergy/4160 [id number]( Hospital 46164(SNOMED NORM) Repository CT) 05/20/2018 Drug No Known Unknown [facility] Allergy/4160 Allergies/F00 Hospital [facility](SNOMED 3048148(RXNOR Repository CT) M) ENCOUNTERS ENCOUNTERS ADMIT/DISCHARGE ACCOUNT NUMBER ADMITTING ENCOUNTER LOCATION SOURCE CLASS 05/27/2018 [id number] Ambulatory [facility] ding:PAVLAB Repository 05/27/2018/05/27/19 [id number] Ambulatory BMSBuilding: [place] 19 BMS.[facility] Repository 05/22/2018/05/22/19 [id number] Emergency [facility] 19 [facility] ding:ED Repository 05/20/2018/05/20/19 [id number] Ambulatory BMSBuilding: [place] 19 BMS[facility] Repository 05/16/2018 [id number] Ambulatory [facility] ding:US Repository 05/16/2018 [id number] Ambulatory [facility] ding:PAVLAB Repository 05/16/2018/05/16/19 [id number] Ambulatory BMSBuilding: [place] 19 BMS.[facility] Repository 08/01/2017 [id number] Ambulatory [facility] Repository PAYERS PAYERS ENCOUNTER GUARANTOR PAYER SUBSCRIBER SOURCE 05/27/2018 VISHAL Lyn Primary NIKOLAY BELKNAPDOB: [place] [id number] Insurance:ANTHEMPolic [id number] FISHER y Number: [place], [place] [id number] Repository [address]Lmp: (330) liang Date:1320-99-55EY [phone] () [address]EAZRQCJ, [place] [address]TK: 05/27/2018 Secondary NOT GIVENUNK [place] Insurance:SELF PAY [facility] Number: Effective Repository Date:2018-05-27 05/27/2018 VISHAL Lyn Primary NIKOLAY BELGARYAPDOB: [place] [id number] Insurance:ANTHEMPolic [id number] [facility] y Number: [place], [place] [id number] Repository [address]Ojc: (330) liang Date:1221-21-62SR [phone] () [address]DGAEIK, [place] [address]HU: 05/27/2018 Secondary NOT GIVENUNK [place] Insurance:SELF PAY [facility] Number: Effective Repository Date:2018-05-27 05/22/2018 VISHAL Lyn Primary NIKOLAY BELGARYAPDOB: [place] [id number] Insurance:ANTHEMPolic [id number] [facility] y Number: [place], [place] [id number] Repository [address]Aga: (330) liang Date:9622-63-42DC [phone] () [address]LTNIYFUASIA [place] [address]OS: 05/22/2018 Secondary NOT GIVENUNK [place] Insurance:SELF PAY [facility] Number: Effective Repository Date:2018-05-22 05/20/2018 VISHAL Lyn Primary NIKOLAY BELKNAPDOB: [place] [id number] Insurance:ANTHEMPolic [id number] Community FISHER y Number: [place], [place] [id number] Repository [address]Zcb: (330) liang Date:8737-99-62PX [phone] () [address]ITIOLECASIA JACKSON [address]JQ: 05/20/2018 Secondary NOT GIVENUNK [place] Insurance:SELF PAY [facility] Number: Effective Repository Date:2018-05-20 05/16/2018 VISHAL Lyn Primary NIKOLAY BELKNAPDOB: [place] [id number] Insurance:ANTHEMPolic [id number] Community FISHER y Number: [place], [place] [id number] Repository [address]Tjh: (330) liang Date:0167-30-05WL [phone] () [address]RRCAFBU, [place] [address]XA: 05/16/2018 Secondary NOT GIVENUNK [place] Insurance:SELF PAY [facility] Number: Effective Repository Date:2018-05-16 05/16/2018 VISHAL Lyn Primary NIKOLAY BELKNAPDOB: [place] [id number] Insurance:ANTHEMPolic [id number] Community FISHER y Number: [place], [place] [id number] Repository [address]Wsp: (330) liang Date:6715-22-01UQ [phone] () [address]ACLOWOQ, [place] [address]BS: 05/16/2018 Secondary NOT GIVENUNK [place] Insurance:SELF PAY [facility] Number: Effective Repository Date:2018-05-16 05/16/2018 VISHAL Lyn Primary NIKOLAY BELKNAPDOB: [place] [id number] Insurance:ANTHEMPolic [id number] [facility] Number: [place] [id number] Repository [address]Vof: (048) liang Date:4358-51-93BQ [phone] () [address]PXLMIDH, [place] [address]FT: 05/16/2018 Secondary NOT GIVENUNK [place] Insurance:SELF PAY [facility] Number: Effective Repository Date:2018-05-16 08/01/2017 Vishal M Primary [facility] BelknapDOB: Insurance:[employer] [place] Blue BelgaryapDOB: System Cross Blue [id number] Repository [facility] Number: Tiff[place], Effective Date: [place] [address]Lqm: ()
== END 2018-05-22 22:23 | disposition home or self-care (01) ==
PROVIDERS: Emergency Provider Emergency Medicine; Referring Provider Obstetrics & Gynecology
DX: O20.0 Threatened abortion (principal); Z3A.01 Less than 8 weeks gestation of pregnancy; I10 Essential (primary) hypertension; E11.9 Type 2 diabetes mellitus without complications; Z72.0 Tobacco use
CPT/HCPCS: 80048; 81001; 84702; 85025; 86900; 86901; 90384; 99283; A4216; J2790

== ENCOUNTER → 2018-05-27 13:12 | Outpatient (CLI) | payer BC, SELFPAY ==
[2018-05-27 13:02] VITALS: BMI 47.0
[2018-05-27 13:59] LABS: Absolute Lymphocyte Count 2.03 X10^3/ul (0.83-4.51); Absolute Neutrophil Count 4.3 X10^3/uL (2.0-7.7); Basophil# 0.03 X10^3/uL; Basophil% 0.4 % (0-1); Differential Indicated SCAN CRITERIA MET; Eosinophil# 0.67 X10^3/uL; Eosinophils% 8.9 % (0-5); Hematocrit 39.1 % (37-47); Hemoglobin 11.7 g/dl (12.0-15.0); Lymphocyte # 2.03 X10^3/ul (4.0); Mean Corp Hgb Conc 29.9 g/gl (32-36); Mean Corpuscular Hgb 22.2 pg (27.0-32.0); Mean Corpuscular Volume 74.1 fL (81-99); Mean Platelet Vol. 10.6 fl (6.2-12.0); Monocyte# 0.43 X10^3/uL; Monocyte% 5.7 % (0-10); Neutrophil # 4.32 X10^3/uL (2.7-7.7); Neutrophil % 57.3 % (47-70); POSITIVE COUNT NO; POSITIVE DIFFERENTIAL NO; POSITIVE MORPHOLOGY YES; Platelet Count 268 K/mm3 (150-450); RBC Distribution Width CV 17.6 % (11.6-14.6); RBC Distribution Width SD 45.6 fl (35.1-43.9); Red Blood Count 5.28 M/mm3 (4.2-5.4); White Blood Count 7.5 K/mm3 (4.4-11.0)
[2018-05-27 14:11] LABS: hCG Titer Quant., Serum 4 mIU/mL (<9 non-preg)
[2018-05-27 14:24] LABS: Anisocytosis RARE; Hypochromasia RARE; Platelet Estimate ADEQUATE (ADEQ)
--- OUTSIDE RECORDS SUMMARY | 2018-07-30 00:38 | XMS RPT_ITS ---
[...] Unknown O03.9 - Complete or Marcanthony, Active [place] unspecified [facility] spontaneous Hospital without Repository complication / O03.9(ICD-10) 05/16/2018 Unknown E11.9 - Type 2 Lovell, Molly Active [place] diabetes mellitus [facility] without Hospital complications / Repository E11.9(ICD-10) 05/16/2018 Unknown I10 - Essential AyaanShaista Active [place] (primary) [facility] hypertension / Hospital I10(ICD-10) Repository 05/16/2018 Unknown Z34.90 - Encounter AyaanShaista gordon Active [place] for supervision of [facility] normal , Hospital unspecified, Repository unspecified trimester / Z34.90(ICD-10) 05/16/2018 Unknown N91.2 - Amenorrhea, LovellShaista gordon Active [place] unspecified / Community N91.2(ICD-10) Hospital Repository 08/01/2017 Admitting Chronic fatigue, [facility] [employer] Diagnosis unspecified / [place] System R53.82(ICD-10) Repository 08/01/2017 Admitting Type 2 diabetes [facility] [employer] Diagnosis mellitus without [facility] complications / Repository E11.9(ICD-10) 08/01/2017 Admitting [facility] (current) [facility] [employer] Diagnosis use of insulin / [place] System Z79.4(ICD-10) Repository PROCEDURES PROCEDURES No Procedure Records FoundRESULTS RESULTS BENCH EXAMINER OFFICE VISIT Observed: 05/27/2018 Status: F Source: [place] REPORT 5:01 PM [facility] [address] [place] [address] [address] [place] [address] OFFICE VISIT Date of Service: 05/27/18 MR#: [id number] Acct: [id number] Name: VISHAL DIAZ Rep #: [id number] : 1990 Provider: Lashell Fernández MD Age/Sex: 28/F Location: [facility] Status: Signed Intake Vital Signs05/27/18 Body Mass Index (BMI) 47.0 05/27/18 Height 5 ft 7 in 05/27/18 Weight: 309 lb 05/27/18 Body Mass Index (BMI) 48.4 05/27/18 Blood Pressure 168/116 H Intake Visit Reasons: EARLY OB - ER FOLLOW UP FOR BLEEDING Roller Repairer Required: No Is patient in pain?: No [...] menopausal: No Patient : Yes : No [facility] Medical History Hypertension (Chronic) Diabetes (Chronic) Abnormal [...] home: Yes additional social history: - Nikolay [facility] EARLY OB - ER FOLLOW UP FOR [...] 05/27/2018 Status: F Source: [place] 1:17 PM [facility] TYPE CODE TESTS RESULT OUT OF [...] Normal RARE Performed By: #### L100.0100 #### [facility] [address] [place], [address] HCG TITER QUANT., Collected: 05/27/2018 Status: F Source: [place]RET[place] SERUM 1:17 PM [facility] TYPE CODE TESTS RESULT OUT OF RANGE REFERENCE UNITS LAB L700.8000 <9 non-preg mIU/mL Normal HCG 4 QUANT. Performed By: #### L700.8000 #### [facility] [address] [place], [address] EMERGENCY DEPARTMENT Observed: 05/22/2018 Status: F Source: GRETNA SUMMARY 11:50 PM [facility] Medical Records Department [address] [place] [address] Emergency Department Summary 05/22/18 192 MR#: [id number] Acct: [id number] Name: VISHAL DIAZ Rep #: [id number] : 1990 28 From: Piotr Freeman MD [...] has known hypertension. Repeat was 173/98. Her BENCH EXAMINER is aware of her hypertension. Treatment Plan: As above Disposition: Discharge Impression: 1. Threatened 2. Hypertension This note was generated with Ticketbud dictation software. It may contain incorrect words, [...] problems, contact your Primary Care Provider. Call [facility] ([phone]) or report to the closest Emergency Room. Call 911 if necessary. 05/22/18 3020 <Electronically signed by Piotr Freeman MD> Date Piotr Freeman MD Cosigner Signature (If Indicated): Date CC: No Primary Care Physician DISCHARGE INSTRUCTION Observed: 05/22/2018 Status: F Source: DONATO 11:50 PM [facility] REPOSITORY [facility] Medical Records Department [address] [place] [address] Discharge Instruction 05/22/18 193 MR#: [id number] Acct: [id number] Name: VISHAL DIAZ Rep #: [id number] : 1990 28 From: Piotr Freeman MD [...] your Primary Care Provider. Call [facility] ([phone]) or report to the closest Emergency Room. Call 911 if necessary. 05/22/18 7380 <Electronically signed by Piotr Freeman MD> Date [...] Normal CRYSTAL Performed By: #### L400.0001 #### [facility] [address] [facility] [place], [place], [address] ABO RH BLOOD TYPE, Collected: 05/22/2018 Status: F Source: [place] PATIENT 8:45 PM [facility] TYPE CODE TESTS RESULT OUT OF RANGE REFERENCE UNITS LAB B10.0800 Test Normal BLOOD not performed TYPE GEL Performed By: #### B10.0010 #### [facility] [address] [facility] [place], [address] ABORH BLOOD TYPE, Collected: 05/22/2018 Status: F Source: [place] PATIENT 8:45 PM [facility] TYPE CODE TESTS RESULT OUT OF RANGE REFERENCE UNITS LAB B100.1300 A Normal BLOOD NEGATIVE TYPE PT Performed By: #### B100.0000 #### [facility] [address] [place], [place], [address] CBC W/DIFF, AUTOMATED Collected: 05/22/2018 Status: F Source: GRETNA 5:35 PM [facility] TYPE CODE TESTS RESULT OUT OF [...] DIFF OK Performed By: #### L100.0100 #### [facility] [address] [place], [address] BASIC METABOLIC Collected: 05/22/2018 Status: F Source: [place] PROFILE (BMP) 5:35 PM [facility] TYPE CODE TESTS RESULT OUT OF [...] GAP 12 Performed By: #### L500.2500 #### [facility] [address] [place], [address] HCG TITER QUANT., Collected: 05/22/2018 Status: F Source: [place] SERUM 5:35 PM [facility] TYPE CODE TESTS RESULT OUT OF RANGE REFERENCE UNITS LAB L700.8000 <9 non-preg mIU/mL High HCG 83 QUANT. Performed By: #### L700.8000 #### [facility] [address] [place], [address] RHOGAM Collected: 05/22/2018 Status: F Source: DON[place] 5:15 PM [facility] TYPE CODE TESTS RESULT OUT OF REFERENCE UNITS RANGE LAB U100.2500 [id number] TRANSFUSED PRODUCT: Rho(D) Immune Globulin RhoGam COUNT: 1 Performed By: #### U100.2500 #### [facility] - refer to report for specific site OFFICE VISIT REPORT Observed: 05/20/2018 Status: F Source: DONATO 1:50 PM [facility] [address] [place] [address] OFFICE VISIT Date of Service: 05/20/18 MR#: [id number] Acct: [id number] Patient: LILLY DIAZANDA Riki Rep #: [id number] : 1990 Provider: Lashell Fernández MD Age/Sex: 28/F Location: [facility] Status: Signed Intake Vital Signs05/20/18 Body Mass Index (BMI) 48.2 05/20/18 Height 5 ft 7 in 05/20/18 Blood Pressure 168/102 H Intake Visit Reasons: BP CHECK Roller Repairer Required: No Allergies No Known Allergies Allergy (Verified 05/20/18 08:51) Medications labetalol 200 mg tablet 200 mg PO BID #60 tab 05/16/18 [Rx Confirmed 05/20/18] Post menopausal: No Patient : Yes 05/20/18 1350 <Electronically signed by Lashell Fernández MD> Date Lashell Fernández MD Cosigner Signature: Date (if applicable) CC: TRANSVAGINAL W/PREG US Observed: 05/16/2018 Status: F Source: DON[place]O 2:47 PM [facility] Imaging Services [address] [place] [address] Transvaginal w/Preg US MR#: [id number] Acct: [id number] Name: VISHAL DIAZ Rep #: [id number] : 1990 F 28 From: Raoul Rivera DO PCP: Care Physician, No Primary Status: REG CLI Study: Transvaginal w/Preg US Date of Exam: 05/16/18 Exam# [id number] Ordering Dr: Shaista Kuo STRUCTURAL WELDER-C STUDY: FIRST TRIMESTER OBSTETRICAL ULTRASOUND REASON FOR [...] Raoul Rivera DO at 16:34 EST Tel [phone], Service support , CC: TIMMY Kuo; No Primary Care Physician Pattern Generator Operator: Signed PROTEIN+CREATININE Collected: Status: F Source: [place] RATIO,URINE 05/16/2018 1:24 PM [facility] TYPE CODE TESTS RESULT OUT OF RANGE REFERENCE UNITS LAB L501.1200 NO RANGE EST. mg/dL Normal UR CREAT 354.00 LAB L501.1930 <11.9 mg/dL High 66.8 PROTEIN,UR.R AN. LAB L501.1940 0-200 mg/g CRE Normal PROT:CRE 189 RATIO Performed By: #### L501.0900 #### [facility] [address] [place], [address] CBC W/DIFF, AUTOMATED Collected: 05/16/2018 Status: F Source: DON[place]O 10:14 AM [facility] TYPE CODE TESTS RESULT OUT OF [...] Lymph 1.91 Performed By: #### L100.0100 #### [facility] [address] [place], [address] COMPREHENSIVE METABOLIC Collected: 05/16/2018 Status: F Source: [place] [facility] 10:14 AM [facility] TYPE CODE TESTS RESULT OUT OF [...] GAP 9 Performed By: #### L500.4050 #### [facility] [address] [place], [address] HCG TITER QUANT., Collected: 05/16/2018 Status: F Source: GRETNA SERUM 10:14 AM [facility] TYPE CODE TESTS RESULT OUT OF RANGE REFERENCE UNITS LAB L700.8000 <9 non-preg mIU/mL High HCG 33 QUANT. Performed By: #### L700.8000 #### [facility] [address] [place], [address] BENCH EXAMINER OFFICE VISIT Observed: 05/16/2018 Status: F Source: GRETNA REPORT 10:04 AM [facility] [address] [place] [address] OFFICE VISIT Date of Service: 05/16/18 MR#: [id number] Acct: [id number] Name: VISHAL DIAZ Rep #: [id number] : 1990 Provider: TIMMY Kuo Age/Sex: 28/F Location: [facility] Status: Signed Intake Vital Signs05/16/18 Height 5 ft 7 in 05/16/18 Weight: 307 lb 8 oz 05/16/18 Body Mass Index (BMI) 48.2 05/16/18 Blood Pressure 178/110 H Intake Visit Reasons: PAINFUL/HEAVY PERIODS Roller Repairer Required: No Is patient in pain?: No Allergies No Known Allergies Allergy (Verified 05/16/18 09:05) Medications labetalol 200 mg tablet 200 mg PO BID #60 tab 05/16/18 [Rx Confirmed 05/16/18] Is last menstrual period known: Yes Last Menstral Period: 04/17/18 Post menopausal: No Patient : Yes : No [facility] Medical History Hypertension (Chronic) Diabetes (Chronic) Abnormal [...] has a daughter 19 mo delivered in [place]. Grav 4/2 C section X 2 Female [...] Diabetes mellitus type: type 2 Diabetes mellitus terminal worker insulin use: without mcfp use Diabetes mellitus complication status: without complication Obesity, morbid, BMI 40.0-49.9 E66.01 05/16/18 1004 <Electronically signed by Shaista POWER> Date Shaista POWER Cosigner Signature: Date (if applicable) CC: ALLERGIES ALLERGIES DATE TYPE / CODE NAME / CODE REACTION SEVERITY SOURCE 05/27/2018 Drug levonorgestre Other Unknown [facility] Allergy/4160 l/[id number]( Hospital 12184(SNOMED RXNORM) Repository CT) 05/27/2018 Drug etonogestrel/ Swelling Unknown [facility] Allergy/4160 [id number]( Hospital [address]50(SNOMED NORM) Repository CT) 05/20/2018 Drug No Known Unknown [place] [facility] Allergy/4160 Allergies/F00 Hospital [facility](SNOMED 1187838(RXNOR Repository CT) M) ENCOUNTERS ENCOUNTERS ADMIT/DISCHARGE ACCOUNT NUMBER ADMITTING ENCOUNTER LOCATION SOURCE CLASS 05/27/2018 [id number] Ambulatory [facility] ding:PAVLAB Repository 05/27/2018/05/27/19 [id number] Ambulatory BMSBuilding: [place] 19 BMS.[facility] [place] [facility] Repository 05/22/2018/05/22/19 [id number] Emergency [facility] 19 [facility] ding:ED Repository 05/20/2018/05/20/19 [id number] Ambulatory BMSBuilding: [place] 19 BMS.[facility] [place] [facility] Repository 05/16/2018 [id number] Ambulatory [facility] ding:US Repository 05/16/2018 [id number] Ambulatory [facility] ding:PAVLAB Repository 05/16/2018/05/16/19 [id number] Ambulatory BMSBuilding: [place] 19 BMS.[facility] [place] [facility] Repository 08/01/2017 [id number] Ambulatory [facility] Repository PAYERS PAYERS ENCOUNTER GUARANTOR PAYER SUBSCRIBER SOURCE 05/27/2018 VISHAL Lyn Primary NIKOLAY BELKNAPDOB: [place] [id number] Insurance:ANTHEMPolic [id number] [facility] FISHER y Number: [place], [place] [id number] Repository [address]Rne: (330) liang Date:9933-41-41VV [phone] () [address]SN[address]MMZ, [place] [address]AY: 05/27/2018 Secondary NOT GIVENUNK [place] Insurance:SELF PAY [facility] Number: Effective Repository Date:2018-05-27 05/27/2018 VISHAL Lyn Primary NIKOLAY BELGRAYAPDOB: [place] [id number] Insurance:ANTHEMPolic [id number] [facility] y Number: [place], [place] [id number] Repository [address]Nrq: (330) liang Date:5826-38-86WX [phone] () [address]JGNHGQD, [place] [address]FH: 05/27/2018 Secondary NOT GIVENUNK [place] Insurance:SELF PAY [facility] Number: Effective Repository Date:2018-05-27 05/22/2018 VISHAL Lyn Primary NIKOLAY BELGARYAPDOB: [place] [id number] Insurance:ANTHEMPolic [id number] [facility] y Number: [place], [place] [id number] Repository [address]Pkv: (330) liang Date:9902-93-79VC [phone] () [address]RBMEUIHASIA [place] [address]VI: 05/22/2018 Secondary NOT GIVENUNK [place] Insurance:SELF PAY [facility] Effective Repository Date:2018-05-22 05/20/2018 VISHAL Lyn Primary NIKOLAY BELKNAPDOB: [place] [id number] Insurance:ANTHEMPolic [id number] Community FISHER y Number: [place], [place] [id number] Repository [address]Eim: (330) liang Date:4607-26-29DC [phone] () [address]NTLIBWDAS[address] [place] [address]YU: 05/20/2018 Secondary NOT GIVENUNK [place] Insurance:SELF PAY [facility] Number: Effective Repository Date:2018-05-20 05/16/2018 VISHAL Lyn Primary NIKOLAY BELKNAPDOB: [place] [id number] Insurance:ANTHEMPolic [id number] Community FISHER y Number: [place], [place] [id number] Repository [address]Zev: (330) liang Date:3584-55-51CX [phone] () [address]SACSSAT, [place] [address]FU: 05/16/2018 Secondary NOT GIVENUNK [place] Insurance:SELF PAY [facility] Number: Effective Repository Date:2018-05-16 05/16/2018 VISHAL Lyn Primary NIKOLAY BELKNAPDOB: [place] [id number] Insurance:ANTHEMPolic [id number] Community FISHER y Number: [place], [place] [id number] Repository [address]Xyp: (330) liang Date:4749-25-77PP [phone] () [address]CGTLYZS, [place] [address]YT: 05/16/2018 Secondary NOT GIVENUNK [place] Insurance:SELF PAY Community [facility] Number: Effective Repository Date:2018-05-16 05/16/2018 VISHAL Lyn Primary NIKOLAY BELKNAPDOB: [place] [id number] Insurance:ANTHEMPolic [id number] [facility] Number: [place], [place] [id number] Repository [address]Zui: (761) liang Date:9847-03-82RX [phone] () [address]MOOZZJW, [place] [address]VE: 05/16/2018 Secondary NOT GIVENUNK [place] Insurance:SELF PAY [facility] Number: Effective Repository Date:2018-05-16 08/01/2017 Vishal M Primary [facility] BelknapDOB: Insurance:[place] Blue BelgaryapDOB: System Cross Blue [id number] Repository [facility] Number: [place], Effective Date: [place] [address]Fly: ()
== END ==
PROVIDERS: Visit Provider Obstetrics & Gynecology
DX: O03.9 Complete or unspecified spontaneous abortion without complication (principal)
CPT/HCPCS: 36415; 84702; 85025

== ENCOUNTER → 2019-03-24 08:43 | Outpatient (CLI) | payer MEDICAID, SELFPAY ==
[2019-03-14 13:34] VITALS: BMI 47.0
[2019-03-24 09:03] LABS: Mucous, Urine 0 SEEN /hpf (<or=2+); Red Blood Cells-Urine 0 SEEN /hpf (0-5); White Blood Cells 0 SEEN /hpf (0-5)
[2019-03-24 09:08] LABS: Absolute Lymphocyte Count 2.02 X10^3/uL (0.83-4.51); Absolute Neutrophil Count 4.5 X10^3/uL (2.0-7.7); Basophil# 0.07 X10^3/uL; Basophil% 0.9 % (0-1); Eosinophil# 0.39 X10^3/uL; Eosinophils% 5.2 % (0-5); Hematocrit 36.5 % (37-47); Hemoglobin 10.6 g/dL (12.0-15.0); Lymphocyte # 2.02 X10^3/ul (4.0); Lymphocyte % 26.8 % (19-41); Mean Corpuscular Hgb 20.3 pg (27.0-32.0); Mean Corpuscular Volume 69.8 fL (81-99); Monocyte# 0.51 X10^3/uL; Monocyte% 6.8 % (0-10); NRBC Flagged by Analyzer 0 % (0-5); Neutrophil % 59.8 % (47-70); Platelet Count 372 K/mm3 (150-450); RBC Distribution Width CV 16.7 % (11.6-14.6); RBC Distribution Width SD 41.4 fl (35.1-43.9); Red Blood Count 5.23 M/mm3 (4.2-5.4); White Blood Count 7.5 K/mm3 (4.4-11.0)
[2019-03-24 09:09] LABS: Color, Urine Yellow (Yellow); Glucose, Dipstick 250 mg/dl (Normal); Ketone-Dipstick Negative (Negative); Leukocyte Esterase-Dipstick Negative /ul (Negative); Nitrite-Dipstick Negative (Negative); Occult Blood-Urine Negative /ul (Negative); Protein-Dipstick 30 mg/dl (Negative); Urine Bilirubin Dipstick Negative (Negative); Urine Clarity Sl. Cloudy (Clear); Urine Urobilinogen Normal (Normal)
[2019-03-24 09:16] LABS: Bacteria 1+ /hpf (None Seen); Squamous Epithelial Cells - UA 5-10 SEEN /hpf (5-10)
[2019-03-24 09:31] LABS: ALB/GLOB Ratio 0.9 RATIO (0.9-2.4); AST(SGOT) 41 U/L (15-37); Alanine Aminotransfer ALT/SGPT 53 U/L (13-56); Albumin, Serum 3.4 g/dL (3.2-5.0); Alkaline Phosphatase 68 U/L (45-117); Anion Gap 7 (5-15); BUN 9 mg/dL (7-18); BUN/Creat Ratio 13.8 RATIO (10-20); Calcium,Total 9.2 mg/dL (8.5-10.1); Chloride 103 mmol/L (98-107); Cholesterol 193 mg/dL (200); Creatinine, Serum 0.65 mg/dL (0.55-1.02); EST Glomerular Filtration Rate 114 mL/min (>60); Est Glom Filt Rate - Afr Amer 138 mL/min (>60); Globulin 3.9 g/dL (2.2-4.2); Glucose 216 mg/dL (74-106); High Density Lipoprotein 50 mg/dL; Protein, Total 7.3 g/dL (6.4-8.2); Sodium Level 133 mmol/L (136-145); T4 Free Direct 0.83 ng/dL (0.76-1.46); Thyroid Stim Hormone (TSH) 2.19 uIU/mL (0.358-3.74); Triglycerides 192 mg/dL; Very Low Density Lipoprotein 38 mg/dL (5-40)
[2019-03-24 09:37] LABS: Microalbumin,Random Urine 87.1 mg/L (NO RANGE EST.); Microalbumin:Creatinine Ratio 62.2 mg/g CRE (<30 mg/g CRE)
[2019-03-25 15:40] LABS: ANTINUCLEAR ANTIBODIES DIRECT Negative (Negative)
== END ==
PROVIDERS: Family Provider Internal Medicine; PCP Internal Medicine; Referring Provider Internal Medicine; Visit Provider Internal Medicine
DX: I10 Essential (primary) hypertension (principal); E11.9 Type 2 diabetes mellitus without complications; N96 Recurrent pregnancy loss
CPT/HCPCS: 36415; 80053; 80061; 81001; 82043; 82570; 84439; 84443; 85025; 86038; 86225; 86235

== ENCOUNTER 2019-05-26 16:30 | Emergency (ER) | payer MEDICAID, SELFPAY ==
[2019-03-14 13:34] VITALS: BMI 47.0
[2019-05-26 16:30] VITALS: BP 184/99; PULSE 135; RESP 28; TEMP 37.1; O2SAT 95
[2019-05-26 16:32] VITALS: BP 184/99; PULSE 135; RESP 28; TEMP 37.1; O2SAT 95; BMI 44.7
--- NOTE | 2019-05-26 17:29 | ED.VIS.DYS ---
History of Present Illness Chief Complaint: Shortness of Breath Informant: Patient Onset: Yesterday Activity at onset: - - grad onset Timing: Continuous Quality: Wheezing Current Severity: Moderate Maximum Severity: Moderate Worsened by: Coughing, Exertion Relieved by: Rest Associated Symptoms: Cough, Fever - 101 Tm, Yellow sputum Chest Pain: Tightness Narrative: Patient started having cold symptoms 3 or 4 days ago, now she became short of breath with wheezing. She does not have a history of asthma. She has never had pneumonia. She states her kids have had colds recently, they were sick before her, they got them from school. She denies any leg swelling or orthopnea. No earache or sore throat. She has had runny nose and congestion. - Past Medical History (1) Depression Status: Chronic (2) Hypertension Status: Chronic (3) Type 2 diabetes mellitus Status: Chronic Past Medical History - Allergies and Home Meds Allergies/Adverse Reactions: Allergies etonogestrel [From Nexplanon] Allergy (Verified 03/14/19 13:30) Swelling levonorgestrel [From Mirena] Allergy (Verified 03/14/19 13:30) Other Primary Care Physician: Janes Hess MD [Primary Care Provider] - Lives: With Family Smoking Status: Current every day smoker Review of Systems General: Reports: Fever, Malaise. Denies: Chills, Sweats Eyes: Denies: Visual changes - bilaterally, Diplopia ENT: Reports: Rhinorrhea. Denies: Sore throat Cardiovascular: Reports: Chest pain. Denies: Palpitations Respiratory: Reports: Dyspnea, Cough, Sputum, Dyspnea on exertion Gastrointestinal: Denies: Abdominal pain, Nausea, Vomiting, Diarrhea, Melena, Hematochezia Genitourinary: Denies: Dysuria, Hematuria, Frequency Musculoskeletal: Denies: Back pain, Swelling, Extremity Pain Skin: Denies: Rash, Wounds Neurological: Denies: Headache, Weakness, Numbness Physical Exam Vital Signs/Narrative: Vital Signs Temp Pulse Resp BP Pulse Ox 05/26/19 16:32 98.7 F 135 H 28 H 184/99 H 95 05/26/19 16:30 98.7 F 135 H 28 H 184/99 H 95 Inital Vital Signs reviewed: Yes General: Well nourished, Well developed, Obese, No Acute Distress Head: Normocephalic, Atraumatic Eyes: Perrl, EOMI ENT: Moist mucous membranes, TM's clear, Nasal congestion. Negative for: Sinus tenderness Neck: Supple, Nontender, No lymphadenopathy Cardiovascular: Regular rate, Regular rhythm, No murmurs Respiratory: No distress, Chest nontender, Wheezing. Negative for: Rales, Rhonchi Abdomen: Soft, Nontender, Nondistended, Normal bowel sounds Back: Nontender, Normal Inspection Extremities: Nontender, No edema. Negative for: Calf Tenderness Skin: Normal color, No rash, No Trauma Neurological: Alert, Oriented x3, Cranial nerves II-XII grossly intact, Normal Strength, Normal Sensation Psychological: Normal affect, Normal Mood Diagnostic/Tx/Re-eval Impressions Chest X-Ray 05/26/19 17:45 IMPRESSION: No acute thoracic pathology. Electronically Signed: Rylan Zavala, at 18:21 EST Tel , Service support , 05/26/19 17:45 Chest PA and Lateral [RAD] Stat 05/26/19 17:40 Mucosa - Nasopharyngeal Influenza Types A,B Direct FA (OSMIN) - Final - NEGATIVE Treatment - Dyspnea: Albuterol, Atrovent Repeat Evaluation: Improved - Medical Decision Making Patient feels much better. Her syndrome is consistent with wheezy bronchitis given that she does not have asthma, her influenza is negative, and her chest x-ray is normal. Her oxygen levels are good. She feels much better after aerosol treatment. She then was able to cough some stuff out, which made her feel even better still. No antibiotics indicated at this time, will be prescribed albuterol inhaler and antitussive and advised to follow-up if she does not have improvement after 2 weeks of feeling ill. ED Disposition - Plan for ED Patient: Disposition: Home or Assisted Living Diagnosis: Acute wheezy bronchitis Instructions: BRONCHITIS with Wheezing (Adult) Prescriptions: Guaifenesin/Codeine [Robitussin AC] 10 ml PO Q6H PRN PRN #4 oz PRN Reason: Cough Transmission Status: Sent to [id number] Albuterol Inhaler [Ventolin Hfa] 1 - 2 puff INHALATION Q4H PRN PRN #1 inhaler PRN Reason: Wheezing Transmission Status: Pending to [facility] [place]/pharmacy #[id number] Referrals: Janes Hess MD [Primary Care Provider] - 1 Week if not improving
--- NOTE | 2019-05-26 17:45 | RAD_ITS ---
STUDY: X-RAY CHEST REASON FOR EXAM: Female, 29 years old. Cough TECHNIQUE: PA and lateral views of the chest COMPARISON: None. FINDINGS: The lungs are clear. There are no pleural effusions. There is no pneumothorax. The heart is normal in size. The visualized osseous structures are within normal limits. RAD/Chest PA and Lateral IMPRESSION: No acute thoracic pathology. Electronically Signed: Rylan Zavala, at 18:21 EST Tel , Service support ,
[2019-05-26 18:00] VITALS: O2SAT 94
[2019-05-26 18:02] VITALS: RESP 24; O2SAT 93
[2019-05-26] MEDS: Ipratropium/Albuterol Sulfate 3 ML AMPUL.NEB INHALATION (18:13)
[2019-05-26 18:14] VITALS: PULSE 100; RESP 28
[2019-05-26] MEDS: Albuterol 2.5 MG/3 ML VIAL.NEB. INHALATION (18:14)
[2019-05-26 19:29] VITALS: PULSE 111; RESP 18; O2SAT 99
== END 2019-05-26 19:30 | disposition home or self-care (01) ==
PROVIDERS: Emergency Provider Emergency Medicine; PCP Internal Medicine
DX: J20.9 Acute bronchitis, unspecified (principal); E11.9 Type 2 diabetes mellitus without complications; I10 Essential (primary) hypertension; F32.9 Major depressive disorder, single episode, unspecified; F17.200 Nicotine dependence, unspecified, uncomplicated
CPT/HCPCS: 71046; 87804; 94640; 99282; A4216

== ENCOUNTER 2019-05-29 17:03 | Emergency (ER) | payer MEDICAID, SELFPAY ==
[2019-05-29 17:05] VITALS: BP 160/92; PULSE 92; RESP 22; TEMP 36.8; O2SAT 92; BMI 43.8
[2019-05-29 17:26] VITALS: PULSE 88; RESP 20
[2019-05-29] MEDS: Ipratropium/Albuterol Sulfate 3 ML AMPUL.NEB INHALATION (17:26)
[2019-05-29 17:41] LABS: Absolute Lymphocyte Count 1.31 X10^3/uL (0.83-4.51); Absolute Neutrophil Count 6.5 X10^3/uL (2.0-7.7); Basophil# 0.03 X10^3/uL; Basophil% 0.3 % (0-1); Eosinophil# 0.44 X10^3/uL; Eosinophils% 4.8 % (0-5); Hematocrit 31.9 % (37-47); Hemoglobin 9.3 g/dL (12.0-15.0); Lymphocyte # 1.31 X10^3/ul (4.0); Lymphocyte % 14.2 % (19-41); Mean Corp Hgb Conc 29.2 g/dL (32-36); Mean Corpuscular Hgb 19.4 pg (27.0-32.0); Mean Corpuscular Volume 66.6 fL (81-99); Monocyte# 0.84 X10^3/uL; Monocyte% 9.1 % (0-10); NRBC Flagged by Analyzer 0.2 % (0-5); Neutrophil % 70.7 % (47-70); Platelet Count 339 K/mm3 (150-450); RBC Distribution Width CV 17.2 % (11.6-14.6); RBC Distribution Width SD 39.4 fl (35.1-43.9); Red Blood Count 4.79 M/mm3 (4.2-5.4); White Blood Count 9.2 K/mm3 (4.4-11.0)
[2019-05-29] MEDS: 0.9% Normal Saline 1,000 ML 1000 ML IV (17:45)
[2019-05-29] MEDS: Ketorolac 30 MG/ML Syringe IV (17:45)
[2019-05-29] MEDS: proMETHazine 25 MG/ML Syringe 12.5 MG IV (17:45)
--- NOTE | 2019-05-29 17:55 | RAD_ITS ---
STUDY: X-RAY CHEST REASON FOR EXAM: Female, 29 years old. fever, seen here recently for same TECHNIQUE: Frontal and lateral views of the chest were performed COMPARISON: 26 May 2019 FINDINGS: The lungs are clear and expanded. There is no demonstrated pleural abnormality. Normal size heart. Normal mediastinum and sun. Normal visualized pulmonary arteries. Normal visualized aortic arch and descending thoracic aorta. Normal visualized thoracic spine. Normal visualized ribs, clavicles, and shoulders. There is lower thoracic kyphosis accentuation. There is no demonstrated abnormality of the visualized soft tissue structures of the upper abdomen. RAD/Chest PA and Lateral IMPRESSION: Normal x-ray examination of the chest. Electronically Signed: Geneva Nixon, at 18:33 EST Tel , Service support ,
[2019-05-29 17:57] LABS: Anion Gap 6 (5-15); BUN 6 mg/dL (7-18); BUN/Creat Ratio 8.2 RATIO (10-20); Calcium,Total 9.4 mg/dL (8.5-10.1); Chloride 104 mmol/L (98-107); Creatinine, Serum 0.73 mg/dL (0.55-1.02); EST Glomerular Filtration Rate 100 mL/min (>60); Est Glom Filt Rate - Afr Amer 121 mL/min (>60); Estimated Creatinine Clearance 110.58 ml/min; Glucose 306 mg/dL (74-106); Potassium 3.7 mmol/L (3.5-5.1); Sodium Level 136 mmol/L (136-145)
[2019-05-29 18:14] LABS: Lactic Acid 1.8 mmol/L (0.4-1.9)
--- NOTE | 2019-05-29 18:26 | ED.VISSUMM ---
- ER Visit Summary Date of Service: 05/29/19 Chief Complaint: [Dizziness, nausea, cough] History of Present Illness: The patient is a 29 F [presents to the emergency department with complaint of not feeling well today. Patient states that 4 days ago she was seen and diagnosed with bronchitis after she had a negative flu screen and a normal chest x-ray. Patient was started on an inhaler. Her kids have had a runny nose at home also. Today around 3 PM. Patient developed some dizziness. She felt nauseated and vomited several times after she coughed. Temperature last night was 103. She does complain of a headache. Denies any falls or head injuries.] Physical Examination: [HEENT-PERRLA, EOMI. Cranial nerves II through XII grossly intact. TMs clear. Mucous membranes moist. No adenopathy. Cardiovascular-regular rate and rhythm without murmur or ectopy Lungs-clear to auscultation, chest wall stable without crepitus or subcu emphysema Abdomen-normoactive bowel sounds, soft, nontender, no rebound or rigidity, no peritoneal signs. Neuro [id number] and heel eason testing within normal limits, negative Romberg, negative , Fundi benign. Hallpike maneuver was negative for nystagmus. Extremities-intact ?4, normal range of motion, normal pulses, atraumatic] Test Results: [CBC with differential obtained was normal. Chemistries unremarkable. Glucose was elevated 306. Lactate was 1.8. Chest x-ray obtained read by myself is nothing acute.] Emergency Department Course and Treatment: [He was given a liter normal same fluid bolus. Patient was started on doxycycline.] Treatment Plan: [Se will be treated with doxycycline and Tessalon Perles. Patient will be given a prescription for Zofran for nausea as needed] Disposition: [Discharged home in stable condition] Impression: [URI Dizziness-resolved Posttussive emesis This note was generated with [employer] dictation software. It may contain incorrect words, spelling, and punctuation that were not noted in review of the chart prior to signing ED Disposition - Plan for ED Patient: Referrals: Janes Hess MD [Primary Care Provider] -
--- NOTE | 2019-05-29 18:28 | ED.DEP ---
ED Disposition - Plan for ED Patient: Instructions: BRONCHITIS, Antiobiotic Treatment (Adult), DIZZINESS, Unk Cause Prescriptions: Doxycycline 100 mg PO BID #20 cap Prescription Printed Benzonatate [Tessalon Perle] 200 mg PO TID PRN PRN #20 cap PRN Reason: Cough Prescription Printed Ondansetron [Zofran Odt] 4 mg PO Q8H PRN PRN #10 tab PRN Reason: Nausea Prescription Printed Referrals: Janes Hess MD [Primary Care Provider] - 3-5 Days
[2019-05-29 18:52] VITALS: BP 136/68; PULSE 87; RESP 16; O2SAT 96
== END 2019-05-29 18:54 | disposition home or self-care (01) ==
LOC: ED 17:44
PROVIDERS: Emergency Provider Emergency Medicine; PCP Internal Medicine; Referring Provider Internal Medicine
DX: J06.9 Acute upper respiratory infection, unspecified (principal); R42 Dizziness and giddiness; R11.2 Nausea with vomiting, unspecified; E11.9 Type 2 diabetes mellitus without complications; I10 Essential (primary) hypertension; Z72.0 Tobacco use; F12.90 Cannabis use, unspecified, uncomplicated; Z79.4 Long term (current) use of insulin
CPT/HCPCS: 71046; 80048; 83605; 85025; 94640; 96361; 96374; 96375; 99283; J7030; A4216

== ENCOUNTER → 2019-06-23 10:19 | Outpatient (CLI) | payer MEDICAID, SELFPAY ==
[2019-06-10 12:54] VITALS: BMI 43.8
--- NOTE | 2019-06-23 10:23 | RAD_ITS ---
STUDY: X-RAY - LUMBAR SPINE REASON FOR EXAM: Female, 29 years old. MID BACK PAIN, RT SHOULDER DISCOMFORT TECHNIQUE: 5 view(s) of the lumbar spine were obtained including oblique views. COMPARISON: None FINDINGS: Normal lumbar lordosis. There is no substantial scoliosis. There is a normal alignment of the vertebrae. Disc space narrowing and spondylosis at the T12-L1 and L1-L2 levels. The soft tissue structures are unremarkable. RAD/L/S Spine Min 4 Views IMPRESSION: Degenerative changes of the spine, as detailed above. Electronically Signed: Jatin Davis, at 11:04 EST , Service support ,
--- NOTE | 2019-06-23 10:24 | RAD_ITS ---
STUDY: X-RAY - THORACIC SPINE REASON FOR EXAM: Female, 29 years old. MID BACK PAIN, RT SHOULDER DISCOMFORT TECHNIQUE: 3 view(s) of the thoracic spine were obtained. COMPARISON: None. FINDINGS: Normal kyphosis of the thoracic spine. There is no substantial scoliosis. There is multilevel endplate spondylosis of the thoracic vertebrae. There is multilevel disc space narrowing of the thoracic spine. The soft tissue structures are unremarkable. RAD/Thoracic Spine 3 Views IMPRESSION: Multilevel disc space narrowing and spondylosis in the mid and lower thoracic spine. Electronically Signed: Jatin Davis, at 11:03 EST , Service support ,
== END ==
PROVIDERS: PCP Internal Medicine; Referring Provider Chiropractor; Visit Provider Chiropractor
DX: S23.3XXA Sprain of ligaments of thoracic spine, initial encounter (principal); S33.5XXA Sprain of ligaments of lumbar spine, initial encounter; Z87.39 Personal history of other diseases of the musculoskeletal system and connective tissue
CPT/HCPCS: 72072; 72110

== ENCOUNTER 2019-12-09 09:30 | Outpatient (RCR) | payer MEDICAID, SELFPAY ==
[2019-07-07 11:29] VITALS: BMI 43.8
--- NOTE | 2019-10-06 12:18 | HP.PTEVAL_ITS ---
Patient's Visit Information VISHAL DIAZ is a 29 year old F referred to Physical Therapy by Dr. Janes Hess MD with a diagnosis of LUMBAR STRAIN. Date of Evaluation: 10/06/19 Physical Therapist: Tabitha Barclay PT, Cert MDT - Visit Plan Frequency: 2-3x /Week Duration: 4-6 Weeks Plan: AQUATIC THERAPY FOR PAIN RELEIF, POSTURE CORRECTION/STRENGTHENING, INSTRUCTION IN APPROPRIATE BODY MECHANICS AND ACTIVITY MODIFICATIONS. DLS STARTING WITH A NEUTRAL SPINE PROGRESSING ROM TOLERATED. DERIC LE ROM, STRETCHING AND STRENGTHENING. HEP INSTRUCTION. 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 7 YO AND 3YO. Disability: NO. Present symptoms: LOW BACK, HIP AND LEG PAIN. INTERMITTENT DERIC LE PAIN, NUMBNESS AND TINGLING. STARTS IN INNER HIP AND GOES DOWN LEGS. NOT BOTH LEGS AT THE SAME TIME. Present since: CHRONIC LBP WITH LE SX'S STARTING ABOUT 6 MONTHS AGO. Pain Scale: WORST 9/10, LEAST 1/10. Currently: 6/10. Commenced as a result of: SCOLIOSIS. Symptoms at onset: BACK. Worse: WALKING, STANDING, SITTING, LYING DOWN, BENDING, LIFTING, TWISTING, LAUNDRY - CARRYING IT UP AND DOWN THE STAIRS. STRETCHING. Better: TENS, HEATING PAD, TYLONOL, CBD. Disturbed sleep: YES. Previous history/Previous treatment: UNREMARKABLE. NO BACK SURGERY. NO EMANUEL'S. Treatment this episode: CHIROPRACTOR X ABOUT 12 VISITS - SEEMS TO BE HELPING. Coughing/sneezing/straining: UNREMARKABLE. Gait: I WADDLE. DISTANCE AND TIME LIMITED DUE TO BACK PAIN. Difficulty initiating urinatin: NO. Accidents: NO. Unexplained weight loss: NO. Imaging: RECENT LUMBAR X- RAY - BONE SPURS AND CURVATURE. PMH: DEPRESSION, IDDM, HTN. Recent major surgery: CYST REMOVAL AND DRAINAGE ON TAIL BONE 2011 - Objective Sitting/Standing Posture: POOR. SCOLIOSIS. INCREASED KYPHOSIS. Active Correction of posture: WORSE. Other Observations: INDEP GAIT INTO PT WITHOUT ANY ASSISTIVE DEVICE. INDEP TRANSFERS SIT TO STAND WITHOUT UE ASSIST. Motor deficit: DERIC LE'S GROSSLY 5/5 WITH MMT'ING EXCEPT LEFT HIP 4-/5. Sensory deficit: HYPERSENSATIVITY OF LLE COMPARED TO RIGHT. ROM deficit: TIGHT DERIC GASTROC SOLEUS COMPLEX'S. Reflexes: 2/3 DERIC LE'S. Dural Signs: POSITIVE LLE. Lumbar mvmt loss: flex - MOD. ext - BOBBY. R SG - MOD. L SG - MOD. Core strength: POOR. Palpation: TENDERNESS WITH PALPATION OF ENTIRE LUMBOSACRAL REGIONS INTO DERIC GREATER TROCH REGIONS. INCREASED MUSCLE TONE DERIC PARASPINALS. TREATMENT: NEUROMUSCULAR REEDUCATION - RETRAINING OF MVMT AND POSTURE FOR SITTING, LYING AND STANDING ACTIVITIES. - Goals Goal 1:: DECREASE C/O BACK AND DERIC LE'S SX'S Goal Time Frame: 4-6 Weeks Goal 2:: IMPROVE PERSONAL CARE, LIFTING, WALKING, SITTING, STANDING, SLEEP, SOCIAL LIFE, TRAVEL, WORK AND HOMEMAKING FUNCTION Goal Time Frame: 4-6 Weeks Goal 3:: INSTRUCT IN PROPHYLAXIS Goal Time Frame: 4-6 Weeks - Rehabilitation Potential Rehabilitation Potential: Fair - Anticipated Interventions Patient/Client Instruction: Educate patient on: Condition, Plan of Care, Risk Factors, Benefits of Fitness Program For the Purpose of:: To improve self management Therapeutic Exercise to Include: Strength training, Body mechanics, Postural training, Gait and locomotor training, Neuromotor development, In an aquatic setting, Dynamic Lumbar Stabilization For the Purpose of:: To decrease pain, To improve muscle performance and motor function, To increase tolerance to activity/condition/position, To improve ability of physical actions for home/community/work/leisure, To improve gait and locomotor functions Thank you for the opportunity to evaluate your patient. For Medicare and Medicare HMO plans, please review the plan of care and approve it. It will need to be FAXED BACK to us at [phone] for Medicare purposes. For Medicare only, by signing this I certify the plan of care. Please let me know if there are questions or concerns regarding this plan of care. Physician Signature: Date:
--- NOTE | 2019-10-31 09:33 | HP.PTREVAL ---
Dr. Janes Hess MD, It has been my pleasure to treat VISHAL DIAZ over the last 11 visits for LUMBAR STRAIN. Please see the progress note below for an update on the physical therapy plan of care! Subjective: PATIENT REPORTS SHE FEELS A LOT STRONGER IN HER LEGS AND CAN DO STEPS BETTER. PATIENT ALSO REPORTS LESS LOW BACK PAIN. PATIENT REPORTS SHE FEELS HER LOW BACK IS GETTING STRONGER AND NOW SHE IS NOTICING IT MORE IN HER UPPER BACK. PATIENT REPORTS SHE DEFINATELY HAS MADE PROGRESS BUT DOESN'T FEEL READY FOR LAND. WOULD LIKE TO CONTINUE WATER THERAPY TO SEE IF SHE CAN IMPROVE MORE. Objective/Function: PATIENT WAS SEEN TODAY FOR RE-ASSESSMENT OF PROGRESS TOWARD THE SET PT GOALS AND THE NEED FOR FURTHER PHYSICAL THERAPY VS READINESS FOR DISCHARGE. PATIENT IS MAKING GOOD PROGRESS TOWARD ALL PT GOALS AND IS A GOOD CANDIDATE TO CONTINUE PT. PATIENT IS AGREEABLE. UPON EXAM TODAY: Motor deficit: DERIC LE'S GROSSLY 5/5 WITH MMT'ING EXCEPT DERIC HIPS 4/5. Sensory deficit: HYPERSENSATIVITY OF RIGHT THIGH COMPARED TO LEFT (PATIENT REPORTS IT DOESN'T HURT DOWN HER LEGS LIKE IT USE TO). ROM deficit: MIDLY TIGHT DERIC GASTROC SOLEUS COMPLEX'S. Dural Signs: NEGATIVE DERIC LE'S. Lumbar mvmt loss: flex - MIN. ext - BOBBY. R SG - MOD. L SG - MIN. Core strength: POOR. Palpation: TENDERNESS WITH PALPATION OF ENTIRE LUMBOSACRAL REGIONS INTO DERIC GREATER TROCH REGIONS. INCREASED MUSCLE TONE DERIC PARASPINALS. Plan Plan: CONTINUE PT IN THE WATER 3X'S A WEEK X 2 WEEKS THEN TRY TO TRANSITION TO LAND 3X'S A WEEK X 2 WEEKS TOLERATED. Goals Goal 1:: DECREASE C/O BACK AND DERIC LE'S SX'S Goal Time Frame: 4-6 Weeks Goal Progress: Progressing Goal 2:: IMPROVE PERSONAL CARE, LIFTING, WALKING, SITTING, STANDING, SLEEP, SOCIAL LIFE, TRAVEL, WORK AND HOMEMAKING FUNCTION Goal Time Frame: 4-6 Weeks Goal Progress: Progressing Goal 3:: INSTRUCT IN PROPHYLAXIS Goal Time Frame: 4-6 Weeks Goal Progress: Progressing Anticipated Interventions Patient/Client Instruction: Educate patient on: Condition, Plan of Care, Risk Factors, Benefits of Fitness Program For the Purpose of:: To improve self management Therapeutic Exercise to Include: Strength training, Body mechanics, Postural training, Gait and locomotor training, Neuromotor development, In an aquatic setting, Dynamic Lumbar Stabilization For the Purpose of:: To decrease pain, To improve muscle performance and motor function, To increase tolerance to activity/condition/position, To improve ability of physical actions for home/community/work/leisure, To improve gait and locomotor functions Please do not hesitate to contact me at [phone] by phone or if you have questions or concerns regarding this new plan of care! Sincerely, Tabitha Barclay, PT, Cert MDT
--- NOTE | 2019-12-09 10:04 | HP.PTDCSUM ---
It has been my pleasure to treat VISHAL DIAZ referred by Dr. Janes Groves MD, with the diagnosis of LUMBAR STRAIN for a total of 21 visit(s). Discharge Date: 12/09/19 Please see the following information for a summary of their discharge status. Subjective: PATIENT REPORTS SHE IS ABLE TO WALK MORE AND PICK THINGS UP. SLEEPING BETTER BUT NERVE PAIN IN INNER GROIN STILL SHOOTS DOWN LEGS BUT NOT ALL THE TIME. FOLLOW UP WITH CHIROPRACTOR PENDING TODAY. HAS NOT SEEN HIM SINCE STARTING PT. HAS NOT SEEN DR. GROVES SINCE APPROX MAY 2019. I WAS ABLE TO MOW THE YARD FOR THE FIRST TIME WHICH IS A BIG IMPROVEMENT. Lumbar Spine Pain Intensity (Out of 10): 0 Mid-Back Pain Intensity (Out of 10): 4 RLE Pain Intensity (Out of 10): 0 Hips Pain Intensity (Out of 10): 0 % Improvement: 60 Objective/Function: PATIENT WAS SEEN TODAY FOR RE-ASSESSMENT OF PROGRESS TOWARD THE SET PT GOALS AND THE NEED FOR FURTHER PHYSICAL THERAPY VS READINESS FOR DISCHARGE. PATIENT HAS MADE GOOD PROGRESS WITH PT AND IS INDEP WITH HEP. SHE IS APPROPRIATE FOR DISCHARGE AND AGREEABLE. UPON EXAM TODAY: LUMBAR ROM HAS IMPROVED IN ALL PLANES AND IS FOLLOWS -. Lumbar mvmt loss: flex - NIL. ext - MOD. R SG - MIN. L SG - NIL Goal 1:: DECREASE C/O BACK AND DERIC LE'S SX'S Goal Progress: Progressing Goal 2:: IMPROVE PERSONAL CARE, LIFTING, WALKING, SITTING, STANDING, SLEEP, SOCIAL LIFE, TRAVEL, WORK AND HOMEMAKING FUNCTION Goal Progress: Progressing Goal 3:: INSTRUCT IN PROPHYLAXIS Goal Progress: Goal Met Plan: D/C TO HEP If there are questions or concerns regarding this patient's physical therapy, please feel free to call me at [phone]. Thank you for the referral of this patient. Sincerely, Tabitha Barclay, PT, Cert MDT
== END 2019-12-09 19:00 | disposition home or self-care (01) ==
LOC: PT 09:30
PROVIDERS: PCP Internal Medicine; Referring Provider Internal Medicine; Visit Provider Internal Medicine
DX: S33.5XXD Sprain of ligaments of lumbar spine, subsequent encounter (principal)
CPT/HCPCS: 97110; 97112; 97113; 97162; 97164

== ENCOUNTER → 2020-01-07 11:00 | Outpatient (CLI) | payer MEDICAID, SELFPAY ==
[2020-01-07 10:31] VITALS: BMI 43.8
[2020-01-07 12:09] LABS: Absolute Lymphocyte Count 2.22 X10^3/uL (0.83-4.51); Absolute Neutrophil Count 4.4 X10^3/uL (2.0-7.7); Basophil# 0.04 X10^3/uL; Basophil% 0.5 % (0-1); Eosinophil# 0.58 X10^3/uL; Eosinophils% 7.6 % (0-5); Hematocrit 28.3 % (37-47); Hemoglobin 7.8 g/dL (12.0-15.0); Lymphocyte # 2.22 X10^3/ul (4.0); Mean Corp Hgb Conc 27.6 g/dL (32-36); Mean Corpuscular Hgb 17.7 pg (27.0-32.0); Mean Corpuscular Volume 64.3 fL (81-99); Mean Platelet Vol. 9.9 fl (6.2-12.0); Monocyte# 0.35 X10^3/uL; Monocyte% 4.6 % (0-10); NRBC Flagged by Analyzer 0 % (0-5); Neutrophil # 4.43 X10^3/uL (2.7-7.7); Neutrophil % 57.8 % (47-70); Platelet Count 380 K/mm3 (150-450); RBC Distribution Width CV 17.5 % (11.6-14.6); RBC Distribution Width SD 40.2 fl (35.1-43.9); White Blood Count 7.7 K/mm3 (4.4-11.0)
[2020-01-07 12:27] LABS: ALB/GLOB Ratio 0.9 RATIO (0.9-2.4); AST(SGOT) 25 U/L (15-37); Alanine Aminotransfer ALT/SGPT 30 U/L (13-56); Albumin, Serum 3.5 g/dL (3.2-5.0); Alkaline Phosphatase 60 U/L (45-117); Anion Gap 7 (5-15); BUN 9 mg/dL (7-18); BUN/Creat Ratio 11.5 RATIO (10-20); Chloride 106 mmol/L (98-107); Cholesterol 207 mg/dL (200); Creatinine, Serum 0.78 mg/dL (0.55-1.02); EST Glomerular Filtration Rate 92 mL/min (>60); Est Glom Filt Rate - Afr Amer 111 mL/min (>60); Ferritin 2 ng/mL (8-252); Glucose 107 mg/dL (74-106); High Density Lipoprotein 55 mg/dL; Iron 15 ug/dL (50-170); Iron Binding Capacity,Total 555 ug/dL (250-450); Potassium 4.1 mmol/L (3.5-5.1); Protein, Total 7.5 g/dL (6.4-8.2); Sodium Level 138 mmol/L (136-145); Triglycerides 143 mg/dL; Very Low Density Lipoprotein 29 mg/dL (5-40)
[2020-01-08 07:09] LABS: SARS-COV-2 TOTAL ABS Nonreactive (Nonreactive)
== END ==
PROVIDERS: PCP Internal Medicine; Referring Provider Internal Medicine; Visit Provider Internal Medicine
DX: D64.9 Anemia, unspecified (principal); E11.9 Type 2 diabetes mellitus without complications; E66.01 Morbid (severe) obesity due to excess calories; I10 Essential (primary) hypertension
CPT/HCPCS: 36415; 80053; 80061; 82728; 83540; 83550; 85025; 86769

== ENCOUNTER → 2020-01-13 10:02 | Outpatient (CLI) | payer MEDICAID, SELFPAY ==
[2020-01-13 09:27] VITALS: BMI 44.6
[2020-01-15 16:08] LABS: Dilute Prothrombin Time (dPT) 32.9 sec (0.0-55.0); Dilute Russell Viper Venom 33.5 sec (0.0-47.0); Thrombin Time 16.5 sec (0.0-23.0); dPT Confirm Ratio 1.08 Ratio (0.00-1.40)
[2020-01-15 22:02] LABS: Anti-Cardiolipin Ab, IgA, Qn < 9 APL U/mL (0-11); Anti-Cardiolipin Ab, IgG, Qn < 9 GPL U/mL (0-14); Anti-Cardiolipin Ab, IgM, Qn < 9 MPL U/mL (0-12); Beta-2-Glycoprotein I IgA <9 (0-25); Beta-2-Glycoprotein I IgG <9 (0-20); Beta-2-Glycoprotein I IgM <9 (0-32); Interpretation Comment: (.)
== END ==
PROVIDERS: PCP Internal Medicine; Referring Provider Nurse Practitioner Women's Health; Visit Provider Nurse Practitioner Women's Health
DX: N96 Recurrent pregnancy loss (principal)
CPT/HCPCS: 36415; 86146; 86147

== ENCOUNTER → 2020-01-19 08:22 | Outpatient (CLI) | payer MEDICAID, SELFPAY ==
[2020-01-13 10:04] VITALS: BMI 43.8
[2020-01-19 08:39] VITALS: BP 148/86; PULSE 84; RESP 16; TEMP 36.6; O2SAT 98; BMI 43.8
[2020-01-19] MEDS: 0.9% NaCl IVPB Med Flush (250 mL) 15 ML IV (08:59)
[2020-01-19] MEDS: 0.9% NaCl Peripheral Flush Adult/Peds IV (08:59)
[2020-01-19 11:03] VITALS: BP 122/71; PULSE 69; O2SAT 98
== END ==
PROVIDERS: PCP Internal Medicine; Referring Provider Internal Medicine; Visit Provider Internal Medicine
DX: D64.9 Anemia, unspecified (principal)
CPT/HCPCS: 96365; J1756; J7050; A4216

== ENCOUNTER → 2020-01-21 13:53 | Outpatient (CLI) | payer MEDICAID, SELFPAY ==
[2020-01-13 10:04] VITALS: BMI 43.8
[2020-01-20 13:19] VITALS: BMI 43.7
[2020-01-21 14:04] VITALS: BP 128/64; PULSE 69; RESP 18; TEMP 36.5; O2SAT 100; BMI 43.8
[2020-01-21] MEDS: 0.9% NaCl Peripheral Flush Adult/Peds IV (14:22)
[2020-01-21] MEDS: 0.9% NaCl IVPB Med Flush (250 mL) 15 ML IV (14:22)
[2020-01-21 15:10] VITALS: BP 140/80; PULSE 69; RESP 16; TEMP 36.5; O2SAT 100
== END ==
PROVIDERS: PCP Internal Medicine; Referring Provider Internal Medicine; Visit Provider Internal Medicine
DX: D64.9 Anemia, unspecified (principal)
CPT/HCPCS: 96365; J1756; J7050; A4216

== ENCOUNTER → 2020-01-23 09:51 | Outpatient (CLI) | payer MEDICAID, SELFPAY ==
[2020-01-13 10:04] VITALS: BMI 43.8
[2020-01-21 14:04] VITALS: BMI 43.8
== END ==
PROVIDERS: PCP Internal Medicine; Referring Provider Internal Medicine; Visit Provider Internal Medicine
DX: D64.9 Anemia, unspecified (principal)
CPT/HCPCS: 96365

== ENCOUNTER 2020-02-24 09:56 | Day surgery (SDC) | payer MEDICAID, SELFPAY ==
[2020-01-21 14:04] VITALS: BMI 43.8
[2020-02-17 09:25] LABS: Hematocrit 37.1 % (37-47); Hemoglobin 10.4 g/dL (12.0-15.0); Mean Corpuscular Hgb 19.8 pg (27.0-32.0); Mean Corpuscular Volume 70.8 fL (81-99); Mean Platelet Vol. 9.9 fl (6.2-12.0); POSITIVE MORPHOLOGY YES; Platelet Count 319 K/mm3 (150-450); RBC Distribution Width CV 26.5 % (11.6-14.6); RBC Distribution Width SD 62.9 fl (35.1-43.9); Red Blood Count 5.24 M/mm3 (4.2-5.4); White Blood Count 8.4 K/mm3 (4.4-11.0)
[2020-02-17 09:30] LABS: Prothrombin Time (Protime)PT. 12.3 SECONDS (11.7-14.9)
[2020-02-17 09:31] LABS: Partial Thromboplast Time 28.6 Seconds (24.1-36.2)
[2020-02-17 09:47] LABS: Scan Indicated on CBC? Y/N YES- FLAGS NOTED
[2020-02-17 09:59] LABS: Differential Comment SCANNED
[2020-02-20 09:12] VITALS: BMI 43.9
--- NOTE | 2020-02-20 11:20 | EKG12_ITS ---
Test Reason : PRE OP Blood Pressure : / mmHG Vent. Rate : 070 BPM Atrial Rate : 070 BPM P-R Int : 134 ms QRS Dur : 100 ms QT Int : 378 ms P-R-T Axes : 033 060 029 degrees QTc Int : 408 ms Normal sinus rhythm Normal ECG Confirmed by CURLY RICHARDSON, AUGUSTO ([id number]), purchasing expeditor VISHAL SHAIKH ([id number]) on 02/20/2020 1:49:15 PM Referred By: Lashell Fernández Confirmed By:AUGUSTO RAWLS MD
--- NOTE | 2020-02-21 18:00 | PCM.HPOB.BLA ---
- Problem List (1) Abnormal Pap smear of cervix Status: Acute (2) Abnormal uterine bleeding Status: Acute Comment: d and c hysteroscopy diagnostic laparoscopy (3) Obesity, morbid, BMI 40.0-49.9 Status: Acute (4) Recurrent loss Status: Acute Comment: 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 recommend d and c hysteroscopy for evaluation, diagnostic laparoscopy (5) Anemia Status: Chronic (6) Anxiety and depression Status: Chronic (7) Depression Status: Chronic (8) Diabetes Status: Chronic Qualifiers: (9) Fibroids Status: Chronic (10) Hypertension Status: Chronic Qualifiers: (11) PTSD (post-traumatic stress disorder) Status: Chronic (12) Seasonal allergies Status: Chronic (13) Type 2 diabetes mellitus Status: Chronic History and Physical Date of Admission: 02/24/20 ADDENDUM Addendum entered and electronically signed by Lashell Fernández MD 01/20/20 14:25: Assessment & Plan Problems 1. Abnormal uterine bleeding N93.9 d and c hysteroscopy diagnostic laparoscopy 2. Recurrent loss N96 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 recommend d and c hysteroscopy for evaluation, diagnostic laparoscopy 3. Type 2 diabetes mellitus E11.9 4. Anemia D64.9 5. Essential hypertension I10 6. Obesity, morbid, BMI 40.0-49.9 E66.01 7. Fibroids D21.9 Plan - Dr. Lashell Fernández MD After discussing the patient's diagnosis and treatment plan options, patient wishes to proceed with surgical management. I have discussed with the patient the risks, benefits, and alternatives of the procedure which include but are not limited to risks of anesthesia, bleeding, infection, possible damage to bowel, bladder, or surrounding vasculature which could lead to additional surgery to evaluate any complications. Patient agrees to procedure and wishes to proceed. ACOG/uptodate references given for additional information regarding procedure. Intake Vital Signs 01/20/20 Height 5 ft 7 in 01/20/20 Weight: 279 lb 8 oz 01/20/20 BP 138/86 H 01/20/20 BMI 43.8 Intake Visit Reasons: Infertility consult/hx of miscarriage per Financial Auditor Required: No Is patient in pain?: No Allergies etonogestrel [From Nexplanon] Allergy (Verified 01/20/20 13:14) Swelling levonorgestrel [From Mirena] Allergy (Verified 01/20/20 13:14) Other Medications blood sugar diagnostic See Rx Instructions .ROUTE .MEDSUPPLY #100 ea 03/14/19 [Rx Confirmed 01/20/20] pen needles #100 ea 03/14/19 [Rx Confirmed 01/20/20] blood pressure monitor See Rx Instructions .ROUTE .MEDSUPPLY #1 ea 05/30/19 [Rx Confirmed 01/20/20] metformin 500 mg tablet,extended release 24 hr 1,000 mg PO QPM #180 tab 05/30/19 [Rx Confirmed 01/20/20] labetalol 200 mg tablet See Rx Instructions .ROUTE .COMPLEX #90 tab 08/13/19 [Rx Confirmed 01/20/20] blood sugar diagnostic See Rx Instructions .ROUTE .MEDSUPPLY #200 ea 01/07/20 [Rx Confirmed 01/20/20] blood-glucose meter See Rx Instructions .ROUTE .MEDSUPPLY #1 ea 01/07/20 [Rx Confirmed 01/20/20] dulaglutide 1.5 mg/0.5 mL subcutaneous pen injector 1.5 mg SC QWEEK 90 Days #6.5 ml 01/07/20 [Rx Confirmed 01/20/20] fluoxetine 20 mg tablet 20 mg PO DAILY #30 tab 01/07/20 [Rx Confirmed 01/20/20] insulin glargine 100 unit/mL (3 mL) subcutaneous pen 20 unit SC DAILY 90 Days #18 ml 01/07/20 [Rx Confirmed 01/20/20] lancets 28 gauge See Rx Instructions .ROUTE .MEDSUPPLY #200 ea 01/07/20 [Rx Confirmed 01/20/20] Post menopausal: No Patient : No : No PFSH Medical History PTSD (post-traumatic stress disorder) (Chronic) Seasonal allergies (Chronic) Fibroids (Chronic) Abnormal Pap smear of cervix (Acute) Hypertension (Chronic) Diabetes (Chronic) Surgical History H/O removal of cyst (Resolved) S/P (Resolved) Family History Father Diabetes Kidney disease Hypertension Heart disease Myocardial infarction Mother Depression Diabetes Heart disease Myocardial infarction Social History (Updated 01/20/20 @ 14:[address] Lashell Fernández MD) Smoking Status: Current every day smoker alcohol intake: never substance use type: marijuana, other details: rare use caffeine: Yes what type of physical activity do you participate in: none seatbelt use: always do you feel safe at home: Yes additional social history: - Tino HPI Infertility consult/hx of miscarriage per : Details: VISHAL DIAZ is a 29 year old who presents for recurrent miscarriage. she has an issue of heavy menses and painful menses. she has severe back and leg pain with her menses. she also has dyspareunia and rectal pain. she has a family history of mullerian anomalies. She hasn't had a workup for this. she has the same FOB for all of her pregnancies. Female Reproductive History Cycle Length: 21-35 Bleeding Duration: 7 Questions: Metorrhagia: No, Sexually active: Yes, Dyspareunia: Yes Pregancy History 4 Elective abortions Hx Para 2 Spontaneous abortions 2 Hx # Term Pregnancies Ectopic pregnancies Hx # Pregnancies Multiple births # of living children Past Pregnancies Del. Date Name GA/Weeks Outcome Route Bth Weight Infant Gen Labor Lgth Anesthesia Del Locatn Provider FOB 12/21/12 Brie 34 live - 5lbs 4oz Female [facility] Dr. Lamar 10/21/16 Lu 38 live - full term 8lbs 13oz Female [facility] Delivery Date: 12/21/12 On 05/16/18 @ 09:12 Yumi Velázquez Pre-eclampsia Delivery Date: 10/21/16 No notes to display ROS Const Constitutional: Denies fatigue, fever(s), headache(s), increased appetite, poor appetite, weight gain or weight loss ENT ENT: Reports system reviewed and no additional complaints, except as docu Cardio Card: Denies chest pain Resp Resp: Denies cough or dyspnea GI GI: Reports as per HPI, abdominal pain and bloating; denies constipation, nausea or vomiting : Reports as per HPI and urinary incontinence (occasional); denies difficulty urinating, painful urination, blood in urine, nipple discharge, pelvic pain, urinary frequency, urinary hesitancy, urinary urgency, vaginal discharge, vaginal dryness, vaginal odor, vaginal itching or other Musc Musc: Denies joint pain, back pain or muscle weakness Skin Skin/Breast: Denies hair loss, change in hair, dry skin, breast lump, breast pain, breast skin changes or nipple discharge Neuro Neuro: Reports system reviewed and no additional complaints, except as docu Psych Psych: Reports system reviewed and no additional complaints, except as docu Endo Endo: Denies cold intolerance, excessive sweating, heat intolerance or increased thirst Gary/Lymph Hematologic/Lymphatic: Denies easy bleeding, Denies easy bruising, Denies enlarged lymph nodes Exam Const General: cooperative, healthy appearing, comfortable, no acute distress, well developed Orientation: alert [facility] Head: normal to inspection, normocephalic Ears: hearing grossly normal bilaterally, external ears normal Nose: external nose normal, nares normal Face and sinus: normal facial exam Neck Neck: normal visual inspection, no lymphadenopathy, trachea midline Thyroid: thyroid normal Chest Chest palpation & inspection: normal inspection of the chest Resp Effort & Inspection: normal respiratory effort Auscultation: clear to auscultation bilaterally Cardio Rate: regular rate Rhythm: regular rhythm Heart Sounds: S1 normal, S2 normal GI Inspection: normal to inspection, non-distended Palpation: soft, no hepatosplenomegaly, tender Musc Other: gross motor intact no deficits, full bilateral strength Skin General: no rashes or lesions noted Neuro General: alert, awake, moves all extremities, no focal motor deficits Motor: muscle tone normal throughout Extrem General: normal to inspection, no pedal edema Psych Appearance: grossly normal Mental Status: mental status grossly normal Affect: normal affect Speech and Movement: speech and movement normal Assessment & Plan Problems 1. Abnormal uterine bleeding N93.9 d and c hysteroscopy diagnostic laparoscopy 2. Recurrent loss N96 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 recommend d and c hysteroscopy for evaluation, diagnostic laparoscopy Plan After discussing the patient's diagnosis and treatment plan options, patient wishes to proceed with surgical management. I have discussed with the patient the risks, benefits, and alternatives of the procedure which include but are not limited to risks of anesthesia, bleeding, infection, possible damage to bowel, bladder, or surrounding vasculature which could lead to additional surgery to evaluate any complications. Patient agrees to procedure and wishes to proceed. ACOG/uptodate references given for additional information regarding procedure. Coding Level of Care Code Off vis,est,level 5 Diagnoses Abnormal uterine bleeding N93.9 Recurrent loss N96
[2020-02-24] VITALS (9 sets, daily range): BP systolic 119–140; BP diastolic 55–85; PULSE 52–72; RESP 16–20; TEMP 35.6–36.6; O2SAT 91–99; BMI 44.2
[2020-02-24 10:35] LABS: Bedside Glucose 135 mg/dL (70-110)
[2020-02-24] MEDS: Lactated Ringers 1,000 ML 100 ML IV ×2 (10:49→13:37)
[2020-02-24 11:06] LABS: Internal QC Validated? YES +Cl - CLEAR BKGD; Pregnancy, Serum, hCG Quali. NEGATIVE Negative
--- NOTE | 2020-02-24 11:30 | EMB_PTH ---
PATIENT: VISHAL DIAZ LOC: [facility] – [place] U#:[id number] AGE/SX: 30/F ROOM: RE02/24/[address]: Dr. Lashell Fernández MD : 1990 BED: DIS: 02/24/2020 SPEC #: [id number] RECD: 02/24/20 15:46 STATUS: RITIKA RESarah #: [id number] ANA: 02/24/20 11:[address]: Lashell Fernández DEPT: SURGICAL PATHOLOGY RECD BY: Carlyn Thomas ENTERED: 02/25/20 10:10 SP TYPE: ENDOM BX/C FRANK DR: Dr. Janes Hess MD Tissues: Endometrium, NOS Procedures: Surgery Specimen Level IV HEADER OPERATION: Hysteroscopy, dilation and curettage PRE-OP DIAGNOSIS: Abnormal uterine bleeding, abnormal pap smear, recurrent loss TISSUE SUBMITTED: Endometrial curettings MICROSCOPIC DIAGNOSIS Endometrial curettings: Proliferative endometrium. SJ:urvashi 02/26/20 MICROSCOPIC DESCRIPTION Slides are reviewed. GROSS DESCRIPTION Received in fixative is one container labeled with the patient's name and designated endometrial curettings. The specimen consists of multiple fragments of hemorrhagic mucoid tissue that in aggregate measure 2 x 2 x 0.1 cm. The specimen is totally submitted in one cassette. / CINTHIA:urvashi 02/25/20 TC:4 CPT: 52686
[2020-02-24] MEDS: Bupivacaine Mpf 0.5% 30 ML VIAL (13:15)
--- NOTE | 2020-02-24 13:31 | PCM.OPRPT ---
Problem List (1) Abnormal Pap smear of cervix Status: Acute (2) Abnormal uterine bleeding Status: Acute Comment: d and c hysteroscopy diagnostic laparoscopy (3) Obesity, morbid, BMI 40.0-49.9 Status: Acute (4) Recurrent loss Status: Acute Comment: 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 recommend d and c hysteroscopy for evaluation, diagnostic laparoscopy (5) Anemia Status: Chronic (6) Anxiety and depression Status: Chronic (7) Depression Status: Chronic (8) Diabetes Status: Chronic Qualifiers: (9) Fibroids Status: Chronic (10) Hypertension Status: Chronic Qualifiers: (11) PTSD (post-traumatic stress disorder) Status: Chronic (12) Seasonal allergies Status: Chronic (13) Type 2 diabetes mellitus Status: Chronic Report of Operation Date of Procedure: 02/24/20 Pre-Operative Diagnosis: aub recurrent loss pelvic pain Post-Operative Diagnosis: same Surgery/Procedure Performed:: D&C hysteroscopy diagnostic laparoscopy lysis of adhesions chromotubation Description of Surgical Findings:: Omental to anterior abdominal wall scar tissue left sigmoid colon to pelvic sidewall scar tissue. No visible endometriosis lesions or implants. Very limited vaginal access with no cervical descent Type of Anesthesia:: General Special Medications: obie Specimen's removed: emc Drains: none Estimated Blood Loss (mL): minimal Fluids Replaced: crystalloid Description of Procedure: Patient was taken to the operating room and placed under general anesthesia was prepped and draped in normal sterile fashion in the dorsal lithotomy position. Vaginal access was significantly limited and is very difficult to grab the cervix the uterus was noted to be severely anteverted. Minimal cervical descent with traction. Cervix dilated to allow passage of uterine manipulator. Attention was then paid to the abdominal portion of the procedure. Due to the patient's morbid obesity is unable to enter the abdomen with a varies and therefore using the Lozano technique at the umbilicus direct entry into the abdomen was made and 12 port was placed. Abdomen was insufflated with gas and all areas in the abdomen were visualized and omental to anterior abdominal wall adhesions were visualized and taken down with the LigaSure device as well as sigmoid colon to left pelvic sidewall adhesions which were taken down with the LigaSure device. A 5 mm left lower quadrant and suprapubic port were placed to perform this lysis of adhesions. Uterus tubes and ovaries were well visualized and chromotubation was attempted however bilateral patency was not confirmed but no obvious scar tissue or nodular appearance was seen. Ovaries were enlarged and multicystic but no gross abnormality seen. No endometriosis implants or scar tissue seen. Obie was placed over the raw areas where adhesiolysis was performed and then all instruments removed from the abdomen and the umbilical fascia was closed with 0 Vicryl and all port sites were closed with 3-0 Monocryl. Hysteroscopy was then performed by inserting a 5 mm scope into the uterus visualizing lining which was noted to be thickened but no gross lesions were visualized. Curettage was performed and tissue sent for analysis. All instruments were removed from the patient and patient was awoken and taken recovery in stable condition. Grafts/Implants Used: none - Complications none - Admit VTE Documentation VTE Present on Admission: No VTE Mechan Device Prophylaxis: SCD's Multi Select Codes - Urinary/Genital Urinary/Genital CPT Codes: 07289 Chromotubation, 74044 Hysteroscopy,EMC, Polypectomy, Other Procedure See Report - 76920 dagnostic laparosocpy (this code needs added to our list)
--- NOTE | 2020-02-24 13:34 | PCM.DC.D&C ---
Discharge Diet: No Restrictions Discharge Activity: Return to Normal Activity, May Shower, May Take a Tub Bath Allergies/Adverse Reactions: Allergies etonogestrel [From Nexplanon] Allergy (Verified 02/24/20 10:23) Swelling levonorgestrel [From Mirena] Allergy (Verified 02/24/20 10:23) Other expelled X 1; fever and pain with second Medications to take at Discharge metformin 500 mg tablet,extended release 24 hr 1,000 mg PO QPM #180 tab 05/30/19 dulaglutide 1.5 mg/0.5 mL subcutaneous pen injector 1.5 mg SC QWEEK 90 Days #6.5 ml 01/07/20 Insulin Glargine,Hum.rec.anlog [Basaglar Kwikpen U-100] 20 unit SQ DAILY 02/06/20 Labetalol HCl 200 mg PO TID 02/06/20 blood pressure monitor See Rx Instructions .MEDSUPPLY #1 ea 02/20/20 fluoxetine 20 mg tablet 20 mg PO QHS #90 tab 02/20/20 Naproxen [Naprosyn] 250 - 500 mg PO Q8H PRN PRN #30 tab 02/24/20 Oxycodone HCl/Acetaminophen [Percocet 5-325] 1 - 2 tab PO Q6H PRN PRN 7 Days #15 tab 02/24/20 The following prescriptions were given: Naproxen [Naprosyn] 250 - 500 mg PO Q8H PRN PRN #30 tab PRN Reason: MILD PAIN Transmission Status: Pending to [facility] Oxycodone HCl/Acetaminophen [Percocet 5-325] 1 - 2 tab PO Q6H PRN PRN 7 Days #15 tab PRN Reason: Pain Prescription Printed Orders to be completed after discharge: ,Urine Time Frame: 02/24/20, Facility: [facility], Location: Laboratory Primary Care Physician: Janes Hess MD [Primary Care Provider] - Test Results: Test results from this visit will be discussed in further detail at your follow-up appointment, if applicable. Please Follow Up With: Lashell Fernández MD - [phone]
[2020-02-24 14:10] LABS: Bedside Glucose 116 mg/dL (70-110)
== END 2020-02-24 15:35 | disposition home or self-care (01) ==
LOC: SDC 09:56 → AC 10:00
PROVIDERS: Anesthesiology; PCP Internal Medicine; Referring Provider Obstetrics & Gynecology; Visit Provider Obstetrics & Gynecology
PROC: 0UDB8ZZ Extraction of Endometrium, Via Natural or Artificial Opening Endoscopic (ICD-10-PCS; CPT 58558; principal; 2020-02-24 11:15)
PROC: (CPT 49320; 2020-02-24 11:15)
DX: N92.0 Excessive and frequent menstruation with regular cycle (principal); N94.6 Dysmenorrhea, unspecified; N93.9 Abnormal uterine and vaginal bleeding, unspecified; N94.10 Unspecified dyspareunia; K62.89 Other specified diseases of anus and rectum; E11.9 Type 2 diabetes mellitus without complications; I10 Essential (primary) hypertension; D64.9 Anemia, unspecified; E66.01 Morbid (severe) obesity due to excess calories; Z68.41 Body mass index [BMI] 40.0-44.9, adult; F17.200 Nicotine dependence, unspecified, uncomplicated; Z79.4 Long term (current) use of insulin; Z79.899 Other long term (current) drug therapy
CPT/HCPCS: 00952; 58350; 58558; 82962; 83036; 84703; 85027; 85610; 85730; 86850; 86900; 86901; 87635; 88305; 93005; C9803; J7120; J2405; Q9968; U0003

== ENCOUNTER → 2020-10-21 10:31 | Outpatient (CLI) | payer MEDICAID, SELFPAY ==
[2020-10-21 10:06] VITALS: BMI 44.1
[2020-10-21 12:17] LABS: Absolute Lymphocyte Count 1.72 X10^3/uL (0.83-4.51); Absolute Neutrophil Count 4.3 X10^3/uL (2.0-7.7); Basophil# 0.03 X10^3/uL; Basophil% 0.4 % (0-1); Eosinophil# 0.45 X10^3/uL; Eosinophils% 6.5 % (0-5); Hematocrit 33.2 % (37-47); Hemoglobin 9.5 g/dL (12.0-15.0); Lymphocyte # 1.72 X10^3/ul (0.83-4.51); Lymphocyte % 24.7 % (19-41); Mean Corp Hgb Conc 28.6 g/dL (32-36); Mean Corpuscular Hgb 19.7 pg (27.0-32.0); Mean Corpuscular Volume 68.9 fL (81-99); Mean Platelet Vol. 10.1 fl (6.2-12.0); Monocyte# 0.38 X10^3/uL; Monocyte% 5.5 % (0-10); NRBC Flagged by Analyzer 0 % (0-5); Neutrophil # 4.34 X10^3/uL (2.7-7.7); Neutrophil % 62.5 % (47-70); Platelet Count 395 K/mm3 (150-450); Red Blood Count 4.82 M/mm3 (4.2-5.4)
[2020-10-21 12:42] LABS: ALB/GLOB Ratio 0.9 RATIO (0.9-2.4); AST(SGOT) 21 U/L (15-37); Alanine Aminotransfer ALT/SGPT 30 U/L (13-56); Albumin, Serum 3.6 g/dL (3.2-5.0); Alkaline Phosphatase 72 U/L (45-117); Anion Gap 8 (5-15); BUN 10 mg/dL (7-18); BUN/Creat Ratio 12.7 RATIO (10-20); Calcium,Total 9.2 mg/dL (8.5-10.1); Chloride 105 mmol/L (98-107); Cholesterol 207 mg/dL (200); Creatinine, Serum 0.79 mg/dL (0.55-1.02); EST Glomerular Filtration Rate 91 mL/min (>60); Est Glom Filt Rate - Afr Amer 110 mL/min (>60); Globulin 4.1 g/dL (2.2-4.2); Glucose 168 mg/dL (74-106); High Density Lipoprotein 47 mg/dL; Potassium 4.2 mmol/L (3.5-5.1); Protein, Total 7.7 g/dL (6.4-8.2); Sodium Level 138 mmol/L (136-145); T4 Free Direct 0.92 ng/dL (0.76-1.46); Thyroid Stim Hormone (TSH) 1.74 uIU/mL (0.358-3.74); Triglycerides 178 mg/dL; Very Low Density Lipoprotein 36 mg/dL (5-40)
[2020-10-21 12:54] LABS: Microalbumin,Random Urine 31.6 mg/L (NO RANGE EST.); Microalbumin:Creatinine Ratio 24.3 mg/g CRE (<30 mg/g CRE)
[2020-10-21 15:32] LABS: Ferritin 3 ng/mL (8-252); Iron 17 ug/dL (50-170); Iron Binding Capacity,Total 506 ug/dL (250-450); PERCENT IRON SATURATION 3.4 % (15.0-55.0)
[2020-10-23 17:06] LABS: Anti-Cardiolipin Ab, IgA, Qn < 9 APL U/mL (0-11); Anti-Cardiolipin Ab, IgG, Qn < 9 GPL U/mL (0-14); Anti-Cardiolipin Ab, IgM, Qn 9 MPL U/mL (0-12)
[2020-10-24 14:16] LABS: ANTINUCLEAR ANTIBODIES DIRECT Negative (Negative)
== END ==
PROVIDERS: PCP Internal Medicine; Referring Provider Nurse Practitioner Family; Visit Provider Nurse Practitioner Family
DX: F41.9 Anxiety disorder, unspecified (principal); F32.9 Major depressive disorder, single episode, unspecified; E11.9 Type 2 diabetes mellitus without complications; E66.01 Morbid (severe) obesity due to excess calories; I10 Essential (primary) hypertension
CPT/HCPCS: 36415; 80053; 80061; 82043; 82570; 82728; 83540; 83550; 84439; 84443; 85025; 86038; 86147; 86225; 86235

== ENCOUNTER → 2020-11-16 07:57 | Outpatient (CLI) | payer MEDICAID, SELFPAY ==
[2020-10-21 10:06] VITALS: BMI 44.1
[2020-11-16 08:14] VITALS: BP 147/72; PULSE 83; RESP 16; TEMP 36.1; O2SAT 99; BMI 43.0
[2020-11-16] MEDS: 0.9% NaCl IVPB Med Flush (250 mL) 15 ML IV (08:17)
[2020-11-16] MEDS: 0.9% NaCl Peripheral Flush Adult/Peds IV (08:17)
[2020-11-16 09:10] VITALS: BP 128/66; PULSE 64; RESP 16; TEMP 36.2; O2SAT 99
== END ==
PROVIDERS: PCP Internal Medicine; Referring Provider Internal Medicine; Visit Provider Internal Medicine
DX: D50.9 Iron deficiency anemia, unspecified (principal)
CPT/HCPCS: 96365; J1756; J7050; A4216

== ENCOUNTER → 2020-11-22 08:06 | Outpatient (CLI) | payer MEDICAID, SELFPAY ==
[2020-11-16 08:14] VITALS: BMI 43.0
[2020-11-22 08:13] VITALS: BP 133/70; PULSE 68; RESP 16; TEMP 36; O2SAT 98; BMI 43.0
[2020-11-22] MEDS: 0.9% NaCl Peripheral Flush Adult/Peds IV (08:22)
[2020-11-22] MEDS: 0.9% NaCl IVPB Med Flush (250 mL) 15 ML IV (08:25)
[2020-11-22 09:17] VITALS: BP 124/70; PULSE 60; RESP 16; O2SAT 96
== END ==
PROVIDERS: PCP Internal Medicine; Referring Provider Internal Medicine; Visit Provider Internal Medicine
DX: D50.9 Iron deficiency anemia, unspecified (principal)
CPT/HCPCS: 96365; J1756; J7050; A4216

== ENCOUNTER → 2020-11-23 08:02 | Outpatient (CLI) | payer MEDICAID, SELFPAY ==
[2020-11-16 08:14] VITALS: BMI 43.0
[2020-11-22 08:13] VITALS: BMI 43.0
[2020-11-23] MEDS: 0.9% NaCl Peripheral Flush Adult/Peds IV (08:11)
[2020-11-23] MEDS: 0.9% NaCl IVPB Med Flush (250 mL) 15 ML IV (08:11)
[2020-11-23 08:23] VITALS: BP 156/88; PULSE 86; RESP 16; TEMP 35.8; O2SAT 97
[2020-11-23 09:09] VITALS: BP 117/75; PULSE 68; RESP 16; TEMP 36.6
== END ==
PROVIDERS: PCP Internal Medicine; Referring Provider Internal Medicine; Visit Provider Internal Medicine
DX: D50.9 Iron deficiency anemia, unspecified (principal)
CPT/HCPCS: 96365; J1756; J7050; A4216

== ENCOUNTER → 2020-11-29 08:07 | Outpatient (CLI) | payer MEDICAID, SELFPAY ==
[2020-11-16 08:14] VITALS: BMI 43.0
[2020-11-22 08:13] VITALS: BMI 43.0
[2020-11-29 08:21] VITALS: BP 165/86; PULSE 84; RESP 16; TEMP 36.2; O2SAT 98; BMI 43.0
[2020-11-29] MEDS: 0.9% NaCl IVPB Med Flush (250 mL) 15 ML IV (08:26)
[2020-11-29] MEDS: 0.9% NaCl Peripheral Flush Adult/Peds IV ×2 (08:26→09:11)
[2020-11-29 09:15] VITALS: BP 148/72; PULSE 78; TEMP 36.6
== END ==
PROVIDERS: PCP Internal Medicine; Referring Provider Internal Medicine; Visit Provider Internal Medicine
DX: D50.9 Iron deficiency anemia, unspecified (principal)
CPT/HCPCS: 96365; J1756; J7050; A4216

== ENCOUNTER → 2020-11-30 08:15 | Outpatient (CLI) | payer MEDICAID, SELFPAY ==
[2020-11-16 08:14] VITALS: BMI 43.0
[2020-11-29 08:21] VITALS: BMI 43.0
[2020-11-30] MEDS: 0.9% NaCl IVPB Med Flush (250 mL) 15 ML IV (08:23)
[2020-11-30] MEDS: 0.9% NaCl Peripheral Flush Adult/Peds IV (08:24)
[2020-11-30 08:26] VITALS: BP 139/75; PULSE 82; RESP 16; TEMP 35.6; O2SAT 99; BMI 43.0
[2020-11-30 09:16] VITALS: BP 133/79; PULSE 67; RESP 16; TEMP 36.4; O2SAT 99
== END ==
PROVIDERS: PCP Internal Medicine; Referring Provider Internal Medicine; Visit Provider Internal Medicine
DX: D50.9 Iron deficiency anemia, unspecified (principal)
CPT/HCPCS: 96365; J1756; J7050; A4216

== ENCOUNTER → 2021-01-25 11:02 | Outpatient (CLI) | payer MEDICAID, SELFPAY ==
[2021-01-25 12:19] LABS: Absolute Lymphocyte Count 1.61 X10^3/uL (0.83-4.51); Absolute Neutrophil Count 3.1 X10^3/uL (2.0-7.7); Basophil# 0.05 X10^3/uL; Basophil% 0.9 % (0-1); Eosinophil# 0.54 X10^3/uL; Eosinophils% 9.5 % (0-5); Hematocrit 36.8 % (37-47); Hemoglobin 11.2 g/dL (12.0-15.0); Lymphocyte # 1.61 X10^3/ul (0.83-4.51); Lymphocyte % 28.2 % (19-41); Mean Corp Hgb Conc 30.4 g/dL (32-36); Mean Corpuscular Hgb 23.2 pg (27.0-32.0); Mean Corpuscular Volume 76.3 fL (81-99); Mean Platelet Vol. 9.9 fl (6.2-12.0); Monocyte# 0.31 X10^3/uL; Monocyte% 5.4 % (0-10); NRBC Flagged by Analyzer 0 % (0-5); Neutrophil # 3.13 X10^3/uL (2.7-7.7); Neutrophil % 54.9 % (47-70); POSITIVE MORPHOLOGY YES; Platelet Count 319 K/mm3 (150-450); RBC Distribution Width CV 20.3 % (11.6-14.6); RBC Distribution Width SD 54.8 fl (35.1-43.9); Red Blood Count 4.82 M/mm3 (4.2-5.4); White Blood Count 5.7 K/mm3 (4.4-11.0)
[2021-01-25 12:31] LABS: Differential Indicated SCAN CRITERIA MET
[2021-01-25 12:54] LABS: Anisocytosis 1+
== END ==
PROVIDERS: PCP Internal Medicine; Referring Provider Nurse Practitioner Family; Visit Provider Nurse Practitioner Family
DX: D50.9 Iron deficiency anemia, unspecified (principal)
CPT/HCPCS: 36415; 85025

== ENCOUNTER 2021-07-14 15:04 | Outpatient (CLI) | payer MEDICAID, SELFPAY ==
[2021-07-14 15:18] LABS: Absolute Lymphocyte Count 2.17 X10^3/uL (0.83-4.51); Absolute Neutrophil Count 4.2 X10^3/uL (2.0-7.7); Basophil# 0.04 X10^3/uL; Basophil% 0.5 % (0-1); Eosinophil# 0.57 X10^3/uL; Eosinophils% 7.5 % (0-5); Hematocrit 35.7 % (37-47); Hemoglobin 10.9 g/dL (12.0-15.0); Lymphocyte # 2.17 X10^3/ul (0.83-4.51); Lymphocyte % 28.7 % (19-41); Mean Corp Hgb Conc 30.5 g/dL (32-36); Mean Corpuscular Hgb 20.5 pg (27.0-32.0); Mean Platelet Vol. 9.7 fl (6.2-12.0); Monocyte# 0.57 X10^3/uL; Monocyte% 7.5 % (0-10); NRBC Flagged by Analyzer 0 % (0-5); Neutrophil # 4.15 X10^3/uL (2.7-7.7); Platelet Count 390 K/mm3 (150-450); RBC Distribution Width CV 18.2 % (11.6-14.6); RBC Distribution Width SD 42.5 fl (35.1-43.9); Red Blood Count 5.33 M/mm3 (4.2-5.4); White Blood Count 7.6 K/mm3 (4.4-11.0)
[2021-07-14 16:11] LABS: Hemoglobin A1c 7.9 % (3.8-5.6)
[2021-07-14 16:39] LABS: HIV - WCH Non-Reactive (Nonreactive); Hepatitis B Surface Antigen Non-Reactive (Nonreactive); Hepatitis C Antibody Non-Reactive (Nonreactive); Rubella IgG Reactive (Nonreactive); Syphilis Antibodies Non-reactive
[2021-07-14 18:21] LABS: Amphetamine Urine VISTA NEGATIVE (<1000 ng/mL); Barbiturate Urine VISTA NEGATIVE (< 200 ng/mL); Benzodiazepine Urine VISTA NEGATIVE (< 200 ng/mL); Cocaine Urine VISTA NEGATIVE (< 300 ng/mL); Ecstacy Urine VISTA POSITIVE (< 500 ng/mL); Methadone Urine VISTA NEGATIVE (< 300 ng/mL); PCP Urine VISTA NEGATIVE (< 25 ng/mL); THC Urine VISTA NEGATIVE (< 50 ng/mL); Vista UDS pH Range 6
[2021-07-18 15:08] LABS: Chlamydia By Nucleic Acid AMP Negative (Negative)
[2021-07-18 20:51] LABS: Gonococcus By Nucleic Acid AMP Negative (Negative)
== END 2021-07-14 23:59 | disposition home or self-care (01) ==
PROVIDERS: PCP Internal Medicine; Referring Provider Obstetrics & Gynecology; Visit Provider Obstetrics & Gynecology
DX: Z34.90 Encounter for supervision of normal pregnancy, unspecified, unspecified trimester (principal)
CPT/HCPCS: 36415; 80307; 83036; 85025; 86703; 86762; 86780; 86803; 86850; 86900; 86901; 87086; 87088; 87340; 87491; 87591

== ENCOUNTER 2021-07-29 10:11 | Outpatient (CLI) | payer MEDICAID, SELFPAY ==
[2021-07-29 10:49] LABS: Protein, Urine (Random) < 6.0 mg/dL (<11.9)
[2021-07-29 11:01] LABS: Ferritin 6 ng/mL (8-252); Iron 41 ug/dL (50-170); Iron Binding Capacity,Total 532 ug/dL (250-450)
[2021-07-29 11:02] LABS: Vitamin B12 509 pg/mL (211-911)
[2021-07-29 11:20] LABS: NATERA MAILED SPECIMEN
== END 2021-07-29 23:59 | disposition home or self-care (01) ==
LOC: PAVLAB 10:13
PROVIDERS: PCP Internal Medicine; Referring Provider Obstetrics & Gynecology; Visit Provider Obstetrics & Gynecology
DX: Z31.430 Encounter of female for testing for genetic disease carrier status for procreative management (principal); Z34.81 Encounter for supervision of other normal pregnancy, first trimester
CPT/HCPCS: 36415; 82570; 82607; 82728; 83540; 83550; 84156

== ENCOUNTER → 2021-10-21 | Outpatient (CLI) | payer MEDICAID, SELFPAY | END | disposition home or self-care (01) | PROVIDERS: PCP Internal Medicine; Referring Provider Obstetrics & Gynecology; Visit Provider Obstetrics & Gynecology | DX: Z00.00 Encounter for general adult medical examination without abnormal findings (principal) | CPT/HCPCS: 36415 ==

== ENCOUNTER → 2021-11-25 | Outpatient (CLI) | payer MEDICAID, SELFPAY ==
[2021-11-25 14:31] LABS: Hematocrit 31.8 % (37-47); Hemoglobin 9.9 g/dL (12.0-15.0); Mean Corp Hgb Conc 31.1 g/dL (32-36); Mean Corpuscular Hgb 24.3 pg (27.0-32.0); Mean Corpuscular Volume 77.9 fL (81-99); Mean Platelet Vol. 9.6 fl (6.2-12.0); Platelet Count 252 K/mm3 (150-450); RBC Distribution Width CV 18.6 % (11.6-14.6); RBC Distribution Width SD 51.4 fl (35.1-43.9); Red Blood Count 4.08 M/mm3 (4.2-5.4); White Blood Count 10.2 K/mm3 (4.4-11.0)
== END | disposition home or self-care (01) ==
LOC: LAB 14:17
PROVIDERS: PCP Internal Medicine; Visit Provider Obstetrics & Gynecology
DX: O26.899 Other specified pregnancy related conditions, unspecified trimester (principal); Z67.91 Unspecified blood type, Rh negative; Z3A.00 Weeks of gestation of pregnancy not specified
CPT/HCPCS: 36415; 85027

== ENCOUNTER → 2021-12-28 | Outpatient (CLI) | payer MEDICAID, SELFPAY ==
--- NOTE | 2021-12-28 12:24 | US_ITS ---
STUDY: OBSTETRICAL ULTRASOUND - BIOPHYSICAL PROFILE REASON FOR EXAM: Female, 31 years old diabetes, chronic hypertension LMP: 05/08/2021 PRIOR ULTRASOUND: None. TECHNIQUE: Transabdominal TECHNICAL QUALITY: Adequate. FINDINGS: There is a single intrauterine fetus. The fetus is in a breech presentation. There is demonstrated cardiac activity with a heart rate of 127 bpm. There is a normal amniotic fluid volume. The largest amniotic fluid pocket measures cm. The amniotic fluid index (MOUNA) is 5.1 cm. The placenta is 14.6 There are Grade 1 placental changes. Age by LMP: 33 weeks, 3 days. RCIS by LMP: 02/12/2022. BIOPHYSICAL PROFILE: Breathing Movements (FBM): 2 Gross Body Movements (GBM): 2 Tone (FT): 2 Amniotic Fluid Volume (AFV): 2 TOTAL SCORE: 8 / 8 US/Biophysical Prof W/O Non Stres IMPRESSION: Normal biophysical profile of 12/12. Electronically Signed: Jatin Davis MD at 14:13 EDT ,
== END | disposition home or self-care (01) ==
LOC: OPUS 12:22
PROVIDERS: PCP Internal Medicine; Visit Provider Obstetrics & Gynecology
DX: O10.919 Unspecified pre-existing hypertension complicating pregnancy, unspecified trimester (principal); O24.919 Unspecified diabetes mellitus in pregnancy, unspecified trimester
CPT/HCPCS: 76819

== ENCOUNTER → 2022-01-05 | Outpatient (CLI) | payer MEDICAID, SELFPAY ==
--- NOTE | 2022-01-05 09:04 | US_ITS ---
STUDY: OBSTETRICAL ULTRASOUND - BIOPHYSICAL PROFILE REASON FOR EXAM: Female, 31 years old BPP LMP: 05/08/2021. PRIOR ULTRASOUND: Comparison is made with prior study dated 12/28/2021. TECHNIQUE: Transabdominal TECHNICAL QUALITY: Adequate. FINDINGS: There is a single intrauterine fetus. The fetus is in an transverse lie with the head on the maternal left side. There is demonstrated cardiac activity with a heart rate of 130 bpm. There is a normal amniotic fluid volume. The largest amniotic fluid pocket measures 7.5 cm. The amniotic fluid index (MOUNA) is 20.6 cm. The placenta is anterior in location and is not low lying. There are Grade 1 placental changes. BIOPHYSICAL PROFILE: Breathing Movements (FBM): 2 Gross Body Movements (GBM): 2 Tone (FT): 2 Amniotic Fluid Volume (AFV): 2 TOTAL SCORE: 8 / 8 US/Biophysical Prof W/O Non Stres IMPRESSION: Normal biophysical profile of 8/. Electronically Signed: Jatin Davis MD at 11:09 EDT ,
== END | disposition home or self-care (01) ==
LOC: OPUS 08:58
PROVIDERS: PCP Internal Medicine; Visit Provider Obstetrics & Gynecology
DX: O24.919 Unspecified diabetes mellitus in pregnancy, unspecified trimester (principal); O10.919 Unspecified pre-existing hypertension complicating pregnancy, unspecified trimester; Z3A.00 Weeks of gestation of pregnancy not specified
CPT/HCPCS: 76819

== ENCOUNTER 2022-01-06 09:35 | Outpatient (CLI) | payer MEDICAID, SELFPAY ==
[2022-01-06 09:55] VITALS: BP 131/60; PULSE 67; TEMP 36.9
[2022-01-06 10:01] VITALS: BMI 49.0
--- NOTE | 2022-01-06 19:29 | OB.TRI.HP_ITS ---
HPI - General General Date of Admission: 02/05/22 HPI Narrative VISHAL DIAZ, is a 31 who presents to L&D from my office for extended monitoring. She was on the NST in our office for over an hour and was not reactive. She was sent for a walk and given a snack and asked to be put on the monitor for an exteneded period of time. Maternal Data Information CRIS Calculator Estimated Delivery Date Method Current WG Current Estimate 02/12/22 LMP (Certain) 35w 0d PFSH PFSH Medical History Abnormal Pap smear of cervix Diabetes Fibroids Hypertension PTSD (post-traumatic stress disorder) Seasonal allergies Home Medications vits 75-iron 28 mg-folic acid 800 mcg-omega-3 oral combo pack (One A Day Women's DHA) 1 pkg PO QDAY #120 ea 06/09/21 [Rx Last Taken Unknown] FreeStyle Fili 2 Sensor (flash glucose sensor) #2 ea 08/04/21 [Rx Last Taken Unknown] escitalopram oxalate 5 mg tablet (Lexapro) 5 mg PO DAILY #30 tabs 10/12/21 [Rx Last Taken Unknown] labetalol 200 mg tablet 200 mg PO TID #90 tabs 10/12/21 [Rx Last Taken 01/06/22 08:00 400 mg] ferrous sulfate 142 mg (45 mg iron) tablet,extended release (Slow Fe) 142 mg PO BID #60 tabs 10/21/21 [Rx Last Taken Unknown] trazodone 100 mg tablet 50 mg PO QHS PRN insomnia #30 tabs 10/21/21 [Rx Last Taken Unknown] iron fum,ps comp 125 mg iron-folic acid 1 mg-vit B comp,C no.9 capsule (Integra Plus) 1 cap PO DAILY #30 caps 12/01/21 [Rx Last Taken Unknown] insulin degludec 100 unit/mL (3 mL) subcutaneous pen (Tresiba FlexTouch U-100 insulin) 62 unit (0.62 mL) subcut QHS #30 mL 12/05/21 [Rx Last Taken Unknown] insulin lispro 100 unit/mL subcutaneous pen (Humalog KwikPen (U-100) Insulin) 40 unit (0.4 mL) subcut .TIDCM #36 mL 12/05/21 [Rx Last Taken Unknown] buspirone 5 mg tablet 5 mg PO BID PRN anxiety #60 tabs 12/08/21 [Rx Last Taken 01/06/22] Allergy/AdvReac Type Severity Reaction Status Date / Time etonogestrel [From Nexplanon] Allergy Swelling Verified 01/06/22 10:02 levonorgestrel [From Mirena] Allergy Other Verified 01/06/22 10:02 Family History Father Diabetes Kidney disease Hypertension Heart disease Mother Depression Diabetes Heart disease Grandmother Dementia Aunt Thyroid cancer Fredrick's disease Surgical History diagnostic laparoscopy H/O dilation and curettage H/O removal of cyst History of dilation and curettage S/P S/P surgical removal of pilonidal cyst Social History adopted: No household members: spouse, children and other details: 1 step son in home number of children: 3 current occupational status: unemployed current occupation: [employer] pets and animals: Yes pets and animals: cat(s), dog(s), fish and snake(s) Smoking Status: Current every day smoker tobacco type: cigarettes alcohol intake: never substance use type: marijuana and other details: rare use/not since caffeine: Yes (rare) what type of physical activity do you participate in: none seatbelt use: always do you feel safe at home: Yes additional social history: - Tino History 14 Elective abortions Hx Para 2 Spontaneous abortions 11 Hx # Term Pregnancies Ectopic pregnancies Hx # Pregnancies Multiple births # of living children 2 Past Pregnancies Del. Date Name GA/Weeks Outcome Route Bth Weight Gen Labor Lgth Anes the rhiannon Del Locatn Provider FOB 12/21/12 Brie 34 live - 5lbs 4oz Female [facility] Charly Lamar 10/21/16 Lu 38 live - full term 8lbs 13oz Female [facility] Delivery Date: 12/21/12 Last Updated by: Shaista Kuo INDUSTRIAL RECRUITER, INDUSTRIAL RECRUITER-C Pre-eclampsia; vaginal extraction of blood clots from uterus Visit Details Expected Delivery Route/Plan RLTCS Plans Covid status: discussed counseled regarding risk of covid in vs vaccination and declined vaccination Flu vaccine: [] Tdap vaccine: [] Rhogam: [] LARC form signed: [] Problem list reviewed and updated with the most current plan of care details and appropriate orders placed. Relevant counseling for the gestational age provided. Continue routine care and follow up unless otherwise noted in visit notes/problem list details OB Flowsheet Initial Weight: 284 lb Date -?-?-?-?-?-?-?-?-?-?-?-?- EGA Weight BP Urine Prot -?-?-?-?-?-?-?-?-?-?-?-?- Glucose FHR FuHt Pres Dilation -?-?-?-?-?-?-?-?-?-?-?-?- Effaced St Visit Note 07/14/21 -?-?-?-?-?-?-?-?-?-?-?-?- 9w 4d 284 lb (+0 oz) 124/86 -?-?-?-?-?-?-?-?-?-?-?-?- 170 -?-?-?-?-?-?-?-?-?-?-?-?- SM- CRL 2.2cm co ns with LMP 07/29/21 -?-?-?-?-?-?-?-?-?-?-?-?- 11w 5d 286 lb 6 oz (+2 lb 6 oz) 148/84 128/80 Negative -?-?-?-?-?-?-?-?-?-?-?-?- Negative 150 -?-?-?-?-?-?-?-?-?-?-?-?- SM- no vb crampi ng, some nausea, hasn't started checking BS yet- discussed withthe patient how important this is and the high risk for defects and complications if she doesn't. has appointment with endocrine. 08/12/21 -?-?-?-?-?-?-?-?-?-?-?-?- 13w 5d 290 lb 4 oz (+6 lb 4 oz) 130/72 Negative -?-?-?-?-?-?-?-?-?-?-?-?- Negative 130 -?-?-?-?-?-?-?-?-?-?-?-?- JV- no lof, vagi nal bleeding, or cramping. Bedside scan today to document viability and reassurance. Glucose currently is 145 (ate 2 hours ago) she is on a rapid acting glucose only as she waits for her insurance to cover the longer acting. She needs assistance with loading glucose levels into the patient portal system for dr. Dumont to see. bp currently stable. if increase needed will consider procardia as her pulse rate is low today (60's) 08/25/21 -?-?-?-?-?-?-?-?-?-?-?-?- 15w 4d 292 lb 6 oz (+8 lb 6 oz) 148/80 Negative -?-?-?-?-?-?-?-?-?-?-?-?- Negative 143 -?--?-?-?-?-?-?-?-?-?-?-?- JV- no cramping or bleeding. bp slightly elevated from baseline rpt was 142/78. 09/22/21 -?-?-?-?-?-?-?-?-?-?-?-?- 19w 4d 298 lb 8 oz (+14 lb 8 oz) 130/70 Negative -?-?-?-?-?-?-?-?-?-?-?-?- Negative 140 -?-?-?-?-?-?-?-?-?-?-?-?- JV- used bedside ultrasound to find heart tones today. anatomy us was yesterday and results are pending . she will need to go back for additional views. 10/21/21 -?-?-?-?-?-?-?-?-?-?-?-?- 23w 5d 300 lb (+16 lb) 138/60 Negative -?-?-?-?-?-?-?-?-?-?-?-?- Negative 140 -?-?-?-?-?-?-?-?-?-?-?-?- SM- no vb lof go od fm no regular ctx. BS suboptimal controlled still adjusting. SM- no vb lof good fm no reg ular ctx. BS suboptimal controlled still adjusting. discussed trazodone added for sleep and mood, switched to lexapro also. 11/25/21 -?-?-?-?-?-?-?-?-?-?-?-?- 28w 5d 300 lb 2 oz (+16 lb 2 oz) 124/76 Negative -?-?-?-?-?-?-?-?-?-?-?-?- Negative 147 -?-?-?-?-?-?-?-?-?-?-?-?- JV- pt states th at fasting levels are normal, but 2 hrs are 140-180 range recently. JV- pt states that fasting l evels are normal, but 2 hrs are 140-180 range recently but did not have insulin for a few meal. right now she is 128 2 hr postprandial JV- pt states that fasting l evels are normal, but 2 hrs are 140-180 range recently but did not have insulin for a few meal. right now she is 128 2 hr postprandial. rhogam today. 12/08/21 -?-?-?-?-?-?-?-?-?-?-?-?- 30w 4d 310 lb 4 oz (+26 lb 4 oz) 134/70 Negative -?-?-?-?-?-?-?-?-?-?-?-?- Negative 148 -?-?-?-?-?-?-?-?-?-?-?-?- JV- now on 40 b, 35 l, 35 d of R 60 of nph at bedtime. no lof, vaginal bleedi ng, or dec fm. plans tubal ligation 12/23/21 -?-?-?-?-?-?-?-?-?-?-?-?- 32w 5d 310 lb 4 oz (+26 lb 4 oz) 106/66 -?-?-?-?-?-?-?-?-?-?-?-?- 145 -?-?-?-?-?-?-?-?-?-?-?-?- JV-pt had insuli n increasead again to 70 nph, and 44,38,40 of R. JV- NST reactive pt had insu lance increasead again to 70 nph, and 44,38,40 of R. 12/30/21 -?-?-?-?-?-?-?-?-?-?-?-?- 33w 5d 313 lb 2 oz (+29 lb 2 oz) 138/70 Negative -?-?-?-?-?-?-?-?-?-?-?-?- Negative -?-?-?-?-?-?-?-?-?-?-?-?- JV- rpt section scheduled 01/30. bpp this week was 12/12, NST today JV- rpt section scheduled . bpp this week was 12/12, NST today has 10 x 10 accels. discussed will need 15 x 15 after 34 weeks, however because bpp was recently 12/12, ok to rpt early next week. kick counts discussed. no changes insulin. 01/06/22 -?-?-?-?-?-?-?-?-?--?-?-?- 34w 5d 315 lb (+31 lb) 115/68 Negative -?-?-?-?-?-?-?-?-?-?-?-?- Negative 140 -?-?-?-?-?-?-?-?-?-?-?-?- JV- nst not reac tive today, bpp was yesterday and was 12/12. gave granola bar and sending for a walk to have nst reapeated on L&D. NST FHR Rate Baby A Baseline: 120 Variability:: Moderate Accelerations:: 15 x 15 and 10 x 10 Decelerations:: None NST Reactive:: Yes FHR Category:: Category I Uterine Activity:: occasional contractions Assessment & Plan (1) S/P : COMMENT: x2, desires repeat with btl (2) Obesity, morbid, BMI 40.0-49.9: (3) Anxiety and depression: (4) Recurrent loss: COMMENT: 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 (5) Supervision of high risk , antepartum: COMMENT: CRSI:02/12/22, girl, PC:Renee Bairdn. Spouse: Tino Burk) (6) : QUALIFIERS: Weeks of gestation: 32 weeks Qualified Code(s): Z3A.32 - 32 weeks gestation of COMMENT: AFP neg. NIPT low risk, Discussed genetic and carrier screen, tox + possibly d/t labetalol or buspar. random screens. Anatomy normal but profile still not seen. FU US nl (7) Rh negative state in antepartum period: COMMENT: Rhogam 28 wk, pp and prn bleeding. (8) Family history of cleft lip and palate: COMMENT: FOB uncle and nephew (9) Modified White class B pregestational diabetes mellitus: COMMENT: baseline labs, ekg, endocrine cs, prefer insulin only control, optho cs ordered (10) Anemia affecting : COMMENT: additional testing ordered (11) Family history of congenital heart defect: COMMENT: FOB septal defect repaired age 4. plan echo at 22-24 weeks (12) Diabetes mellitus affecting : QUALIFIERS: Trimester: second trimester Qualified Code(s): O24.912 - Unspecified diabetes mellitus in , second trimester (13) Chronic hypertension affecting : COMMENT: on labetalol. will need baseline pr: cr, testing, growth scans 28,32,36 weeks, and delivery at 38 - 39 weeks (pending MFM consultation) with weekly BPP starting at 32 weeks per MFM.8 nl BPP. Growth US normal 12/20 (14) Alpha thalassemia silent carrier: (15) Abnormal Pap smear of cervix: COMMENT: nl pap at [facility] in february (16) Hypertension: QUALIFIERS: Hypertension type: unspecified Qualified Code(s): I10 - Essential (primary) hypertension COMMENT: Pre E labs at [facility], baseline labs. PLAN: Plan nst was off for several minutes due to staff present in an emergency, however o verall the tracing looks much more reactive than it did in our office.BPP yesterday was 8/8. ordering twice weeky BPP's going forward. Patient aware and given a calendar with dates and times with BPP appointments. -ok to dc to home with kick counts.
== END 2022-01-06 12:26 | disposition home or self-care (01) ==
LOC: WPOUT 09:42 → WP 09:42
PROVIDERS: PCP Internal Medicine; Referring Provider Obstetrics & Gynecology; Visit Provider Obstetrics & Gynecology
DX: O99.213 Obesity complicating pregnancy, third trimester (principal); E66.01 Morbid (severe) obesity due to excess calories; Z79.4 Long term (current) use of insulin; E11.9 Type 2 diabetes mellitus without complications; O34.219 Maternal care for unspecified type scar from previous cesarean delivery; O26.23 Pregnancy care for patient with recurrent pregnancy loss, third trimester; F12.90 Cannabis use, unspecified, uncomplicated; F41.9 Anxiety disorder, unspecified; Z80.8 Family history of malignant neoplasm of other organs or systems; F32.A Depression, unspecified; Z3A.32 32 weeks gestation of pregnancy
CPT/HCPCS: 59025; 59050; 99218; G0378

== ENCOUNTER → 2022-01-11 | Outpatient (CLI) | payer MEDICAID, SELFPAY ==
--- NOTE | 2022-01-11 12:18 | US_ITS ---
STUDY: OBSTETRICAL ULTRASOUND - BIOPHYSICAL PROFILE REASON FOR EXAM: Female, 31 years old DM, HTN , WELL BEING LMP: 05/08/2021. PRIOR ULTRASOUND: Comparison is made with prior study 01/05/2022. TECHNIQUE: Transabdominal TECHNICAL QUALITY: Adequate. FINDINGS: There is a single intrauterine fetus. The fetus is in a cephalic presentation. There is demonstrated cardiac activity with a heart rate of 148 bpm. There is a normal amniotic fluid volume. The largest amniotic fluid pocket measures 6.3 cm. The amniotic fluid index (MOUNA) is 19.3 cm. The placenta is anterior in location and is not low lying. There are Grade 1 placental changes. Age by LMP: 35 weeks, 3 days. CRIS by LMP: 02/12/2022. BIOPHYSICAL PROFILE: Breathing Movements (FBM): 2 Gross Body Movements (GBM): 2 Tone (FT): 2 Amniotic Fluid Volume (AFV): 2 TOTAL SCORE: 8 / 8 US/Biophysical Prof W/O Non Stres IMPRESSION: Normal biophysical profile of 12/12. Electronically Signed: Jatin Davis MD at 14:37 EDT ,
== END | disposition home or self-care (01) ==
LOC: OPUS 12:17
PROVIDERS: PCP Internal Medicine; Visit Provider Obstetrics & Gynecology
DX: O10.919 Unspecified pre-existing hypertension complicating pregnancy, unspecified trimester (principal); O24.919 Unspecified diabetes mellitus in pregnancy, unspecified trimester; Z3A.35 35 weeks gestation of pregnancy
CPT/HCPCS: 76819

== ENCOUNTER → 2022-01-13 | Outpatient (CLI) | payer MEDICAID, SELFPAY ==
--- NOTE | 2022-01-13 07:59 | US_ITS ---
STUDY: OBSTETRICAL ULTRASOUND - BIOPHYSICAL PROFILE REASON FOR EXAM: Female, 31 years old OBESITY LMP: 05/08/2021. PRIOR ULTRASOUND: Comparison is made with prior study of 01/11/2022 TECHNIQUE: Transabdominal TECHNICAL QUALITY: Adequate. FINDINGS: There is a single intrauterine fetus. The fetus is in a cephalic presentation. There is demonstrated cardiac activity with a heart rate of 136 bpm. There is a normal amniotic fluid volume. The largest amniotic fluid pocket measures 6.0 cm. The amniotic fluid index (MOUNA) is 17.2 cm. The placenta is anterior in location and is not low lying. There are Grade 1 placental changes. Age by LMP: 35 weeks, 5 days. CRIS by LMP: 02/12/2022. BIOPHYSICAL PROFILE: Breathing Movements (FBM): 2 Gross Body Movements (GBM): 2 Tone (FT): 2 Amniotic Fluid Volume (AFV): 2 TOTAL SCORE: / US/Biophysical Prof W/O Non Stres IMPRESSION: Normal biophysical profile of 12/12. Electronically Signed: Jatin Davis MD at 9:02 EDT ,
== END | disposition home or self-care (01) ==
LOC: OPUS 07:55
PROVIDERS: PCP Internal Medicine; Referring Provider Obstetrics & Gynecology; Visit Provider Obstetrics & Gynecology
DX: O10.919 Unspecified pre-existing hypertension complicating pregnancy, unspecified trimester (principal); O24.919 Unspecified diabetes mellitus in pregnancy, unspecified trimester; Z3A.00 Weeks of gestation of pregnancy not specified
CPT/HCPCS: 76819

== ENCOUNTER → 2022-01-16 | Outpatient (CLI) | payer MEDICAID, SELFPAY ==
--- NOTE | 2022-01-16 08:49 | US_ITS ---
STUDY: OBSTETRICAL ULTRASOUND - BIOPHYSICAL PROFILE REASON FOR EXAM: Female, 31 years old DM HTN OBESITY LMP: 05/08/2021. PRIOR ULTRASOUND: Comparison is made with prior examination dated 01/13/2022. TECHNIQUE: Transabdominal TECHNICAL QUALITY: Adequate. FINDINGS: There is a single intrauterine fetus. The fetus is in a cephalic presentation. There is demonstrated cardiac activity with a heart rate of 124 bpm. There is a normal amniotic fluid volume. The largest amniotic fluid pocket measures 8.2 cm. The amniotic fluid index (MOUNA) is 19.5 cm. The placenta is anterior in location and is not low lying. There are Grade 1 placental changes. Age by LMP: 36 weeks, 1 days. CRIS by LMP: . BIOPHYSICAL PROFILE: Breathing Movements (FBM): 2 Gross Body Movements (GBM): 2 Tone (FT): 2 Amniotic Fluid Volume (AFV): 2 TOTAL SCORE: US/Biophysical Prof W/O Non Stres IMPRESSION: Normal biophysical profile of 12/12. Electronically Signed: Jatin Davis MD at 10:18 EDT ,
== END | disposition home or self-care (01) ==
LOC: OPUS 08:48
PROVIDERS: PCP Internal Medicine; Visit Provider Obstetrics & Gynecology
DX: O10.919 Unspecified pre-existing hypertension complicating pregnancy, unspecified trimester (principal); O24.919 Unspecified diabetes mellitus in pregnancy, unspecified trimester; Z3A.36 36 weeks gestation of pregnancy
CPT/HCPCS: 76819

== ENCOUNTER → 2022-01-20 | Outpatient (CLI) | payer MEDICAID, SELFPAY ==
--- NOTE | 2022-01-20 08:38 | US_ITS ---
STUDY: OBSTETRICAL ULTRASOUND - BIOPHYSICAL PROFILE REASON FOR EXAM: Female, 31 years old well being, obesity, DM, chronic HTN -- Spoke w/Prabha in office to modify order LMP: 05/08/2021. PRIOR ULTRASOUND: Comparison is made with prior study 01/16/2022. TECHNIQUE: Transabdominal TECHNICAL QUALITY: Adequate. FINDINGS: There is a single intrauterine fetus. The fetus is in a cephalic presentation. There is demonstrated cardiac activity with a heart rate of 143 bpm. There is a normal amniotic fluid volume. The largest amniotic fluid pocket measures 7.5 cm. The amniotic fluid index (MOUNA) is 16.1 cm. The placenta is anterior in location and is not low lying. There are Grade 1 placental changes. Age by LMP: 36 weeks, 5 days. CRIS by LMP: 02/12/2022. BIOPHYSICAL PROFILE: Breathing Movements (FBM): 2 Gross Body Movements (GBM): 2 Tone (FT): 2 Amniotic Fluid Volume (AFV): 2 TOTAL SCORE: US/Biophysical Prof W/O Non Stres IMPRESSION: Normal biophysical profile of 12/12. Electronically Signed: Jatin Davis MD at 10:11 EDT ,
== END | disposition home or self-care (01) ==
LOC: US 08:36
PROVIDERS: PCP Internal Medicine; Referring Provider Obstetrics & Gynecology; Visit Provider Obstetrics & Gynecology
DX: O09.90 Supervision of high risk pregnancy, unspecified, unspecified trimester (principal)
CPT/HCPCS: 76819; 87081

== ENCOUNTER → 2022-01-23 | Outpatient (CLI) | payer MEDICAID, SELFPAY ==
--- NOTE | 2022-01-23 08:50 | US_ITS ---
STUDY: OBSTETRICAL ULTRASOUND - BIOPHYSICAL PROFILE REASON FOR EXAM: Female, 31 years old CHRONIC HYPERTENSION, OBESITY, DM LMP: 05/08/2021. PRIOR ULTRASOUND: 01/20/2022. TECHNIQUE: Transabdominal. TECHNICAL QUALITY: Adequate. FINDINGS: There is a single intrauterine fetus. The fetus is in a cephalic presentation. There is demonstrated cardiac activity with a heart rate of 137 bpm. There is a normal amniotic fluid volume. The largest amniotic fluid pocket measures 7.4 cm. The amniotic fluid index (MOUNA) is 18.3 cm. The placenta is anterior and not low-lying. There are Grade 1 placental changes. Age by LMP: 37 weeks, 1 days. CRIS by LMP: 02/12/2022. Gender: Female. BIOPHYSICAL PROFILE: Breathing Movements (FBM): 2 Gross Body Movements (GBM): 2 Tone (FT): 2 Amniotic Fluid Volume (AFV): 2 TOTAL SCORE: 8 / 8 US/Biophysical Prof W/O Non Stres IMPRESSION: Normal biophysical profile of 12/12. Electronically Signed: Sahil Qiu MD at 10:26 EDT ,
== END | disposition home or self-care (01) ==
LOC: OPUS 08:45
PROVIDERS: PCP Internal Medicine; Visit Provider Obstetrics & Gynecology
DX: I10 Essential (primary) hypertension (principal)
CPT/HCPCS: 76819

== ENCOUNTER → 2022-01-27 | Outpatient (CLI) | payer MEDICAID, SELFPAY ==
--- NOTE | 2022-01-27 08:50 | US_ITS ---
STUDY: OBSTETRICAL ULTRASOUND - BIOPHYSICAL PROFILE REASON FOR EXAM: Female, 31 years old Diabetes, chronic HYPERTENSION, OBESITY LMP: 05/08/2021 PRIOR ULTRASOUND: 01/23/2022 TECHNIQUE: Transabdominal TECHNICAL QUALITY: Adequate. FINDINGS: There is a single intrauterine fetus. The fetus is in a cephalic presentation. There is demonstrated cardiac activity with a heart rate of 141 bpm. There is a normal amniotic fluid volume. The largest amniotic fluid pocket measures 5.4 cm. The amniotic fluid index (MOUNA) is 14.0 cm. The placenta is anterior in location and is not low lying. There are Grade 1 placental changes. Age by LMP: 37 weeks, 5 days. CRIS by LMP: 02/10/2022. BIOPHYSICAL PROFILE: Breathing Movements (FBM): 2 Gross Body Movements (GBM): 2 Tone (FT): 2 Amniotic Fluid Volume (AFV): 2 TOTAL SCORE: 8 / 8 US/Biophysical Prof W/O Non Stres IMPRESSION: Normal biophysical profile of 12/12. Electronically Signed: Woody Wisdom MD at 14:09 EDT ,
== END | disposition home or self-care (01) ==
LOC: OPUS 08:47
PROVIDERS: PCP Internal Medicine; Visit Provider Obstetrics & Gynecology
DX: O10.919 Unspecified pre-existing hypertension complicating pregnancy, unspecified trimester (principal); O24.919 Unspecified diabetes mellitus in pregnancy, unspecified trimester; Z3A.00 Weeks of gestation of pregnancy not specified
CPT/HCPCS: 76819

== ENCOUNTER 2022-01-30 05:15 | Inpatient (IN) | payer MEDICAID, SELFPAY ==
[2022-01-30] VITALS (15 sets, daily range): BP systolic 123–156; BP diastolic 56–86; PULSE 64–87; RESP 16–20; TEMP 35.9–36.7; O2SAT 96–100; BMI 50.0
[2022-01-30] MEDS: Lactated Ringers 1,000 ML 999 ML IV (05:55)
[2022-01-30 06:17] LABS: Absolute Lymphocyte Count 2.05 X10^3/uL (0.83-4.51); Basophil# 0.04 X10^3/uL; Basophil% 0.4 % (0-1); Eosinophil# 0.41 X10^3/uL; Eosinophils% 3.9 % (0-5); Hematocrit 31.4 % (37-47); Hemoglobin 9.6 g/dL (12.0-15.0); Lymphocyte # 2.05 X10^3/ul (0.83-4.51); Lymphocyte % 19.4 % (19-41); Mean Corp Hgb Conc 30.6 g/dL (32-36); Mean Corpuscular Hgb 23.9 pg (27.0-32.0); Mean Corpuscular Volume 78.3 fL (81-99); Mean Platelet Vol. 10.6 fl (6.2-12.0); Monocyte# 0.73 X10^3/uL; Monocyte% 6.9 % (0-10); NRBC Flagged by Analyzer 0 % (0-5); Neutrophil # 7.04 X10^3/uL (2.7-7.7); Neutrophil % 66.5 % (47-70); Platelet Count 235 K/mm3 (150-450); RBC Distribution Width SD 47.8 fl (35.1-43.9); Red Blood Count 4.01 M/mm3 (4.2-5.4); White Blood Count 10.6 K/mm3 (4.4-11.0)
[2022-01-30 06:30] LABS: Bedside Glucose 78 mg/dL (74-106)
[2022-01-30] MEDS: Acetaminophen 500 MG Tablet 1000 MG PO ×4 (06:34→23:59)
[2022-01-30] MEDS: Lactated Ringers 1,000 ML 500 ML IV (06:50)
--- NOTE | 2022-01-30 06:51 | NURSING ---
this RN contacted Dr. Fernández to inform her of BGT result of [address] Fernández states from this point forward staff can use patients personal continuous glucose monitoring system; this RN also informed provider of difficulty of obtaining EFM tracing d/t movement and maternal habitus;informed that heart tones were obtained via doppler at 156 bpm and provider states this is appropriate.
[2022-01-30] MEDS: Sodium Citrate/Citric Acid 30 ML UDC PO (07:08)
--- NOTE | 2022-01-30 07:26 | HP.PCM.OB_ITS ---
HPI - General General Date of Admission: 01/30/22 HPI Narrative VISHAL DIAZ, is a 32 y/o @ 38 weeks 1 day who presents to L&D for a repeat section due to morbid obesity and poorly controlled GDM. Maternal Data Information CRIS Calculator Estimated Delivery Date Method Current WG Current Estimate 02/12/22 LMP (Certain) 38w 1d PFSH PFS Medical History (Updated 01/30/22 @ 07:02 by Olga Mendoza) Abnormal Pap smear of cervix Anxiety Chronic hypertension Diabetes Diabetes mellitus Fibroids Hypertension Pre-eclampsia PTSD (post-traumatic stress disorder) Seasonal allergies Home Medications FreeStyle Fili 2 Sensor (flash glucose sensor) #2 ea 08/04/21 [Rx Last Taken Unknown] trazodone 100 mg tablet 50 mg PO QHS PRN insomnia #30 tabs 10/21/21 [Rx Last Taken 01/26/22 22:00 100 mg] buspirone 5 mg tablet 5 mg PO BID PRN anxiety #60 tabs 12/08/21 [Rx Last Taken 01/06/22] escitalopram oxalate 5 mg tablet (Lexapro) 5 mg PO DAILY Check with primary doctor 01/30/22 [History Last Taken 01/29/22 08:00 5 mg] ferrous sulfate 142 mg (45 mg iron) tablet,extended release (Slow Fe) 142 mg PO BID Check with primary doctor 01/30/22 [History Last Taken Unknown] hydroxyzine pamoate 50 mg capsule (Vistaril) 50 mg PO QHS Check with primary doctor 01/30/22 [History Last Taken Unknown] insulin degludec 100 unit/mL (3 mL) subcutaneous pen (Tresiba FlexTouch U-100 insulin) 80 unit subcut QHS Check with primary doctor 01/30/22 [History Last Taken Unknown] insulin lispro 100 unit/mL subcutaneous pen (Humalog KwikPen (U-100) Insulin) 60 unit subcut .TIDCM Check with primary doctor 01/30/22 [History Last Taken Unknown] iron fum,ps comp 125 mg iron-folic acid 1 mg-vit B comp,C no.9 capsule (Integra Plus) 1 cap PO DAILY Check with primary doctor 01/30/22 [History Last Taken Unknown] labetalol 200 mg tablet 200 mg PO TID Check with primary doctor 01/30/22 [History Last Taken 01/30/22 05:45 200 mg] vits 75-iron 28 mg-folic acid 800 mcg-omega-3 oral combo pack (One A Day Women's DHA) 1 pkg PO QDAY Check with primary doctor 01/30/22 [History Last Taken 01/29/22 08:00] Allergy/AdvReac Type Severity Reaction Status Date / Time etonogestrel [From Nexplanon] Allergy Swelling Verified 01/27/22 09:37 levonorgestrel [From Mirena] Allergy Other Verified 01/27/22 09:37 Family History Father Diabetes Kidney disease Hypertension Heart disease Mother Depression Diabetes Heart disease Grandmother Dementia Aunt Thyroid cancer Fredrick's disease Surgical History (Updated 01/30/22 @ 07:01 by Olga Mendoza) diagnostic laparoscopy H/O dilation and curettage H/O removal of cyst History of dilation and curettage Previous section S/P S/P surgical removal of pilonidal cyst Social History adopted: No household members: spouse, children and other details: 1 step son in home number of children: 3 current occupational status: unemployed current occupation: [employer] pets and animals: Yes pets and animals: cat(s), dog(s), fish and snake(s) Smoking Status: Former smoker alcohol intake: never substance use type: marijuana and other details: rare use/not since caffeine: Yes (rare) what type of physical activity do you participate in: none seatbelt use: always do you feel safe at home: Yes additional social history: - Tino History 14 Elective abortions Hx Para 2 Spontaneous abortions 11 Hx # Term Pregnancies Ectopic pregnancies Hx # Pregnancies Multiple births # of living children 2 Past Pregnancies Del. Date Name GA/Weeks Outcome Route Bth Weight Infant Gen Labor Lgth A nestvel Del Locatn Provider FOB 12/21/12 Brie 34 live - 5lbs 4oz Female [facility] Dr. Lamar 10/21/16 Lu 38 live - full term 8lbs 13oz Female [facility] Delivery Date: 12/21/12 Last Updated by: Shaista Kuo EXECUTIVE ASSISTANT TO PRESIDENT, EXECUTIVE ASSISTANT TO PRESIDENT-C Pre-eclampsia; vaginal extraction of blood clots from uterus Visit Details Expected Delivery Route/Plan RLTCS Plans Covid status: discussed counseled regarding risk of covid in vs vaccination and declined vaccination Flu vaccine: [] Tdap vaccine: [] Rhogam: [] LARC form signed: [] Problem list reviewed and updated with the most current plan of care details and appropriate orders placed. Relevant counseling for the gestational age provided. Continue routine care and follow up unless otherwise noted in visit notes/problem list details OB Flowsheet Initial Weight: 284 lb Date -?-?-?-?-?-?-?-?-?-?-?-?- EGA Weight BP Urine Prot -?-?-?-?-?-?-?-?-?-?-?-?- Glucose FHR FuHt Pres Dilation -?-?-?-?-?-?-?-?-?-?-?-?- Effaced St Visit Note 07/14/21 -?-?-?-?-?-?-?-?-?-?-?-?- 9w 4d 284 lb (+0 oz) 124/86 -?-?-?-?-?-?-?-?-?-?-?-?- 170 -?-?-?-?-?-?-?-?-?-?-?-?- SM- CRL 2.2cm co ns with LMP 07/29/21 -?-?-?-?-?-?-?-?-?-?-?-?- 11w 5d 286 lb 6 oz (+2 lb 6 oz) 148/84 128/80 Negative -?-?-?-?-?-?-?-?-?-?-?-?- Negative 150 -?-?-?-?-?-?-?-?-?-?-?-?- SM- no vb crampi ng, some nausea, hasn't started checking BS yet- discussed withthe patient how important this is and the high risk for defects and complications if she doesn't. has appointment with endocrine. 08/12/21 -?-?-?-?-?-?-?-?-?-?-?-?- 13w 5d 290 lb 4 oz (+6 lb 4 oz) 130/72 Negative -?-?-?-?-?-?-?-?-?-?-?-?- Negative 130 -?-?-?-?-?-?-?-?-?-?-?-?- JV- no lof, vagi nal bleeding, or cramping. Bedside scan today to document viability and reassurance. Glucose currently is 145 (ate 2 hours ago) she is on a rapid acting glucose only as she waits for her insurance to cover the longer acting. She needs assistance with loading glucose levels into the patient portal system for dr. Dumont to see. bp currently stable. if increase needed will consider procardia as her pulse rate is low today (60's) 08/25/21 -?-?-?-?-?-?-?-?-?-?-?-?- 15w 4d 292 lb 6 oz (+8 lb 6 oz) 148/80 Negative -?-?-?-?-?-?-?-?-?-?-?-?- Negative 143 -?-?-?-?-?-?-?-?-?-?-?-?- JV- no cramping or bleeding. bp slightly elevated from baseline rpt was 142/78. 09/22/21 -?-?-?-?-?-?-?-?-?-?-?-?- 19w 4d 298 lb 8 oz (+14 lb 8 oz) 130/70 Negative -?-?-?-?-?-?-?-?-?-?-?-?- Negative 140 -?-?-?-?-?-?-?-?-?-?-?-?- JV- used bedside ultrasound to find heart tones today. anatomy us was yesterday and results are pending . she will need to go back for additional views. 10/21/21 -?-?-?-?-?-?-?-?-?-?-?-?- 23w 5d 300 lb (+16 lb) 138/60 Negative -?-?-?-?-?-?-?-?-?-?-?-?- Negative 140 -?-?-?-?-?-?-?-?-?-?-?-?- SM- no vb lof go od fm no regular ctx. BS suboptimal controlled still adjusting. SM- no vb lof good fm no reg ular ctx. BS suboptimal controlled still adjusting. discussed trazodone added for sleep and mood, switched to lexapro also. 11/25/21 -?-?-?-?-?-?-?-?-?-?-?-?- 28w 5d 300 lb 2 oz (+16 lb 2 oz) 124/76 Negative -?-?-?-?-?-?-?-?-?-?-?-?- Negative 147 -?-?-?-?-?-?-?-?-?-?-?-?- JV- pt states th at fasting levels are normal, but 2 hrs are 140-180 range recently. JV- pt states that fasting l evels are normal, but 2 hrs are 140-180 range recently but did not have insulin for a few meal. right now she is 128 2 hr postprandial JV- pt states that fasting l evels are normal, but 2 hrs are 140-180 range recently but did not have insulin for a few meal. right now she is 128 2 hr postprandial. rhogam today. 12/08/21 -?-?-?-?-?-?-?-?-?-?-?-?- 30w 4d 310 lb 4 oz (+26 lb 4 oz) 134/70 Negative -?-?-?-?-?-?-?-?-?-?-?-?- Negative 148 -?-?-?-?-?-?-?-?-?-?-?-?- JV- now on 40 b, 35 l, 35 d of R 60 of nph at bedtime. no lof, vaginal bleeding, or dec fm. plans tubal ligation 12/23/21 -?-?-?-?-?-?-?-?-?-?-?-?- 32w 5d 310 lb 4 oz (+26 lb 4 oz) 106/66 -?-?-?-?-?-?-?-?-?-?-?-?- 145 -?-?-?-?-?-?-?-?-?-?-?-?- JV-pt had insuli n increasead again to 70 nph, and 44,38,40 of R. JV- NST reactive pt had insu lance increasead again to 70 nph, and 44,38,40 of R. 12/30/21 -?-?-?-?-?-?-?-?-?-?-?-?- 33w 5d 313 lb 2 oz (+29 lb 2 oz) 138/70 Negative -?-?-?-?-?-?-?-?-?-?-?-?- Negative -?-?-?-?-?-?-?-?-?-?-?-?- JV- rpt section scheduled 01/30. bpp this week was 12/12, NST today JV- rpt section scheduled . bpp this week was 12/12, NST today has 10 x 10 accels. discussed will need 15 x 15 after 34 weeks, however because bpp was recently 12/12, ok to rpt early next week. kick counts discussed. no changes insulin. 01/06/22 -?-?-?--?-?-?-?-?-?-?-?-?- 34w 5d 315 lb (+31 lb) 115/68 Negative -?-?-?-?-?-?-?-?-?-?-?-?- Negative 140 -?-?-?-?-?-?-?-?-?-?-?-?- JV- nst not reac tive today, bpp was yesterday and was 12/12. [facility] and sending for a walk to have nst reapeated on L&D. 01/13/22 -?-?-?-?-?-?-?-?-?-?-?-?- 35w 5d 320 lb 2 oz (+36 lb 2 oz) 122/66 Negative -?-?-?-?-?-?-?-?-?-?-?-?- Negative 147 -?-?-?-?-?-?-?-?-?-?-?-?- JV- nph 80 at be dtime reguler 60 am, 45 lunch, 52 dinner. The insulin levels continue to rise. plan for delivery at 38 weeks. JV- nph 80 at bedtime regule r 60 am, 45 lunch, 52 dinner. The insulin levels continue to rise. plan for delivery at 38 weeks. BPP was 12/12 today 01/20/22 -?-?-?-?-?-?-?-?-?-?-?-?- 36w 5d 320 lb 8 oz (+36 lb 8 oz) 119/74 Negative -?-?-?-?-?-?-?-?-?-?-?-?- Negative 155 37 Cephalic 0 -?-?-?-?-?-?-?-?-?-?-?-?- -4 JV- bpp 12/12 today, gbs collected. labor precautions disucssed. rpt section scheduled and pt has the time to arrive. will give her the body wash next visit. 01/27/22 -?-?-?-?-?-?-?-?-?-?-?-?- 37w 5d 324 lb 2 oz (+40 lb 2 oz) 122/81 Negative -?-?-?-?-?-?-?-?-?-?-?-?- Negative 141 Cephalic -?-?-?-?-?-?-?-?-?-?-?-?- 0.5 JV- bpp 12/12, section on Sunday. no complaints. ROS Constitutional Constitutional: Denies change in weight, fatigue, fever(s), headache(s), poor appetite or weakness Eyes Eyes: Denies blurry vision, change in vision, seeing flashes or spots in vision ENT HEENT: Denies dizziness, headache(s), loss taste/smell or sore throat Cardiovascular Cardiovascular: Denies chest pain, dizziness, dyspnea, irregular heart rhythm, leg edema, palpitations, rapid heart rate or vomiting Respiratory/Chest Respiratory/Chest: Denies chest tightness, cough, dyspnea or breast pain Gastrointestinal Gastrointestinal: Denies abdominal pain, anorexia, constipation, cramping, diarrhea, hemorrhoids, vomiting or weight changes Genitourinary Genitourinary: Denies dysuria, flank pain, genital lesions, genital pain, urinary frequency or urinary urgency Musculoskeletal Musculoskeletal: Denies back pain, difficulty walking, joint pain, limited range of motion, muscle cramps or numbness Integumentary Integumentary: Denies lesions or unusual bruising Neurologic Neurologic: Denies abnormal movements, abnormal speech, dizziness, numbness, seizure-like activity or syncope Psychiatric Psychiatric: Denies anxiety, behavioral changes, change in appetite, change in libido, cognitive impairment, confusion, depression, difficulty concentrating, hallucinations or suicidal thoughts Endocrine Endocrinology: Denies excessive sweating, polydipsia or polyuria Hematologic/Lymphatic Hematologic/Lymphatic: Denies easy bleeding, easy bruising or lymphadenopathy Allergic/Immunologic Allergic/Immunologic: Denies itchy eyes, lip swelling, seasonal rhinorrhea, rhinitis, throat swelling, tongue swelling, eczemia, wheezing or asthma Vital Signs Vital Signs Vital Signs: Weight Weight: 319 lb 3.669 oz Body Mass Index (BMI) 50.0 Physical Exam Const alert, oriented x3, no apparent distress and healthy appearing General Appearance: cooperative; Negative for anxious HEENT normocephalic Face and Sinus: normal facial exam Eyes EOMs intact bilaterally and no scleral icterus General Eye: normal appearance of both eyes Neck full ROM and supple Lymph Lymphatic: no lymphadenopathy noted Chest Chest: abnormal inspection of the chest Resp normal respiratory effort Effort and Inspection: able to speak in complete sentences Cardio regular rate GI soft to palpation and non-tender Inspection: gravid Palpation: soft; Negative for tender external exam normal Back/Spine no CVA tenderness Extremity normal to inspection, full ROM and no clubbing, cyanosis or edema General Extremity: Negative for calf tenderness or edema Skin Lesions: no lesions Rashes: no rashes Psych mental status grossly normal Labs Labs Labs: Blood Type A NEGATIVE Antibody Screen NEGATIVE Hct 31.4 % (37-47) L Hgb 9.6 g/dL (12.0-15.0) L Pap Smear Negative Obstetrics US Syphilis Total Ab Non-reactive Rubella IgG Antibody Reactive (Nonreactive) Hep Bs Antigen Non-Reactive (Nonreactive) Chlamydia DNA (BERNA) Negative (Negative) Neisseria gonorrhoeae DNA (BERNA) Negative (Negative) HIV 1&2 Antibody Non-Reactive (Nonreactive) Miscellaneous Test Assessment & Plan (1) Obesity, morbid, BMI 40.0-49.9: (2) Anxiety and depression: (3) Recurrent loss: COMMENT: 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 (4) Supervision of high risk , antepartum: COMMENT: CRIS:02/12/22, girl, PC:Brie Lu. Spouse: Tino (Catracho) (5) : COMMENT: GBS neg. AFP neg. NIPT low risk, Discussed genetic and carrier screen, tox + possibly d/t labetalol or buspar. random screens. Anatomy normal but profile still not seen. FU US nl (6) Rh negative state in antepartum period: COMMENT: Rhogam 28 wk, pp and prn bleeding. (7) Family history of cleft lip and palate: COMMENT: FOB uncle and nephew (8) Modified White class B pregestational diabetes mellitus: COMMENT: baseline labs, ekg, endocrine cs, prefer insulin only control, optho cs ordered (9) Anemia affecting : COMMENT: additional testing ordered (10) Family history of congenital heart defect: COMMENT: FOB septal defect repaired age 4. plan echo at 22-24 weeks (11) Diabetes mellitus affecting : QUALIFIERS: Trimester: second trimester Qualified Code(s): O24.912 - Unspecified diabetes mellitus in , second trimester (12) Chronic hypertension affecting : COMMENT: on labetalol. will need baseline pr: cr, testing, growth scans 28,32,36 weeks, and delivery at 38 - 39 weeks (pending MFM consultation) with weekly BPP starting at 32 weeks per MFM.8/24 nl BPP. Growth US normal 12/20, 9/ nl BPP,01/24 nl BPP (13) Alpha thalassemia silent carrier: (14) S/P : COMMENT: x2, desires repeat with btl. Scheduled for 01/30 @ 12 with SM (15) Abnormal Pap smear of cervix: COMMENT: nl pap at [facility] in february (16) Hypertension: QUALIFIERS: Hypertension type: unspecified Qualified Code(s): I10 - Essential (primary) hypertension COMMENT: Pre E labs at NOB, baseline labs.
--- NOTE | 2022-01-30 08:15 | FALS_PTH ---
PATIENT: VISHAL DIAZ LOC: WP U#:[id number] AGE/SX: 32/F ROOM: WP006 RE01/30/[address]: Dr. Lashell Fernández MD : 1990 BED: 1 DIS: 01/31/2022 SPEC #: [id number] RECD: 01/30/22 13:59 STATUS: RITIKA ALFONSO #: [id number] ANA: 01/30/22 08:[address]: Lashell Fernández DEPT: SURGICAL PATHOLOGY RECD BY: Carlyn Thomas ENTERED: 01/31/22 08:52 SP TYPE: FALL TUBES OTHR DR: Dr. Janes Hess MD Tissues: Fallopian tube Procedures: Surgery Specimen Level II HEADER OPERATION: Tubal ligation PRE-OP DIAGNOSIS: Sterilization TISSUE SUBMITTED: Fallopian tubes MICROSCOPIC DIAGNOSIS Bilateral fallopian tubes, salpingectomy: Bilateral fallopian tubes, no pathologic diagnosis. Right paratubal cyst (2.5 cm in greatest dimension). CINTHIA:urvashi 02/01/2022 MICROSCOPIC DESCRIPTION Slides are reviewed. GROSS DESCRIPTION Received in fixative is one container labeled with the patient's name and designated bilateral fallopian tubes, right with tie. The specimen consists of bilateral fallopian tubes including fimbrial ends. The right fallopian tube is identified by a tie and measures 6 cm in length and 0.5 cm in diameter. It shows a paratubal cyst measuring 2.5 cm in greatest dimension. The cyst is filled with a turbid, yellow fluid. The left fallopian tube measures 10 cm in length and 0.5 cm in diameter. Body Shop Technician sections are submitted in two cassettes as follows: 1 - right fallopian tube and paratubal cyst, 2 - left fallopian tube. / CINTHIA:urvashi 01/31/2022 TC:5 CPT: 64705 x2
[2022-01-30] MEDS: Oxytocin 30 units/NS 500 ml 30 UNITS/500 ML IV.SOLN 167 UNITS IV (08:50)
--- NOTE | 2022-01-30 08:50 | NURSING ---
At 0850 - Pt's continuous blood glucose monitor on her right arm showed 99.
--- NOTE | 2022-01-30 08:55 | OP.PCM_ITS ---
Assessment & Plan (1) Obesity, morbid, BMI 40.0-49.9: (2) Anxiety and depression: (3) Recurrent loss: COMMENT: 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 (4) Supervision of high risk , antepartum: COMMENT: CRIS:02/12/22, girl, PC:Lu Baird. Spouse: Tino (Catracho) (5) : COMMENT: GBS neg. AFP neg. NIPT low risk, Discussed genetic and carrier screen, tox + possibly d/t labetalol or buspar. random screens. Anatomy normal but profile still not seen. FU US nl (6) Rh negative state in antepartum period: COMMENT: Rhogam 28 wk, pp and prn bleeding. (7) Family history of cleft lip and palate: COMMENT: FOB uncle and nephew (8) Modified White class B pregestational diabetes mellitus: COMMENT: baseline labs, ekg, endocrine cs, prefer insulin only control, optho cs ordered (9) Anemia affecting : COMMENT: additional testing ordered (10) Family history of congenital heart defect: COMMENT: FOB septal defect repaired age 4. plan echo at 22-24 weeks (11) Diabetes mellitus affecting : QUALIFIERS: Trimester: second trimester Qualified Code(s): O24.912 - Unspecified diabetes mellitus in , second trimester (12) Chronic hypertension affecting : COMMENT: on labetalol. will need baseline pr: cr, testing, growth scans 28,32,36 weeks, and delivery at 38 - 39 weeks (pending MFM consultation) with weekly BPP starting at 32 weeks per MFM.12/28 nl BPP. Growth US normal 12/20, 01/11 nl BPP,01/24 nl BPP (13) Alpha thalassemia silent carrier: (14) S/P : COMMENT: x2, desires repeat with btl. Scheduled for 01/30 @ 12 with SM (15) Abnormal Pap smear of cervix: COMMENT: nl pap at [facility] in february (16) Hypertension: QUALIFIERS: Hypertension type: unspecified Qualified Code(s): I10 - Essential (primary) hypertension COMMENT: Pre E labs at NOB, baseline labs. Maternal Data Information CRIS Calculator Estimated Delivery Date Method Current WG Current Estimate 02/12/22 LMP (Certain) 38w 1d Details Operative Information Date of Procedure: 01/30/22 Pre-Operative Diagnosis: 38 weeks 1 day, , morbid obesity, chronic htn, type 2 DM poorly controlled Post-Operative Diagnosis: 38 weeks 1 day, , morbid obesity, chronic htn, type 2 DM poorly controlled Indications for : Repeat Elective and Desires elective sterilization Classification: Scheduled Procedure Type: low transverse ssn/ssbn weapons equipment operator #1: Lashell Fernández Type of Anesthesia: Spinal Antibiotic Given: Ancef 3 grams IV x1 Drain: Khan to straight drain Estimated Blood Loss: 800cc Time of Delivery: 08:00 Findings Description of Procedure: The patient was brought to the operating room where spinal anesthesia was found to be adequate. She was prepped and draped in the normal sterile fashion and was placed in a dorsal supine position with a leftward tilt. Pfannenstiel skin incision was made with a scalpel and carried through to the underlying layers. The fascia was nicked in the midline and extended laterally using Mak scissors. The anterior aspect of the fascia was grasped with Sj clamps and the underlying rectus muscles dissected off using the Metzenbaum scissors. The inferior aspect the fascia was also grasped with Sj clamps and the underlying rectus muscle dissected off with the Metzenbaum scissors. The rectus muscles were in the midline. Peritoneum was entered sharply. The uterus was identified and a bladder blade was inserted into the abdomen. Bladder flap was created off the uterus using Metzenbaum scissors. A transverse incision was made with a scalpel and extended laterally manually. The infant's head was grasped with the help of my wellness assistant and fundal pressure the was delivered through the uterine incision without difficulty. The mouth and nares were bulb suctioned. After a 30 second delay the cord was clamped and cut. The end was handed off to the awaiting harness placer for routine assessment . Placenta was delivered manually without difficulty. The uterus was exteriorized and cleared of all clots and debris. Incision was closed with an 0 Vicryl suture in a running locked fashion. Second layer of 1-0 monocryl suture was used in imbricating manner to create excellent closure and hemostasis. The tubal ligation procedure was performed next. The right tube was grasped with a [place] clamp and the underlying mesosalpinx was incised with the ligasure to include the fimbriated end and sent off for pathology analysis. The same procedure was performed on the left side. The uterus was returned to the abdomen. The gutters were cleared of all clots and debris. The peritoneum was closed in a pursestring pattern using a 3-0 Vicryl suture. This muscle was reapproximated with a 3-0 Vicryl. The fascia was closed with an 0 Vicryl suture. Subcutaneous tissue layer was closed using a plain gut suture. The skin was closed with a 4-0 Monocryl subcuticular stitch. The patient stewart erated the procedure well sponge lap and needle counts were correct at each tissue closure plane and the patient is now being brought to the recovery room in stable condition Presentation: Positive for Vertex Amniotic Membrane Rupture Type: Artificial Amniotic Fluid Description: Clear Placental Delivery Description: Manual Removal Placenta Disposition: [facility] Cord Vessel Description: 3 Vessels Cord Entanglement: None Infant A Gender: Female (1 minute): 8 (5 minute): 9 Delayed Cord Clamping: Yes Complications Risks of Surgery Discussed w/Patient: Bleeding, Anesthesia Risks, Infection, Need for Future C-Sections, Permanency, Failure Rate of 1 to 2%, Injury to surrounding structure(s) including bowel and bladder and Availability of other non-permanent control options Complications: none Procedures Urinary/Genital [id number]: 61388 delivery+ Care([facility])
[2022-01-30] MEDS: Ketorolac 30 MG/ML Syringe IV ×3 (09:19→21:11)
--- NOTE | 2022-01-30 09:46 | NURSING ---
Pts blood glucose via FreeStyle Fili 2 on her right arm is 99.
[2022-01-30] MEDS: Escitalopram Oxalate 10 MG Tablet 5 MG PO (10:14)
[2022-01-30] MEDS: HYDROmorphone 1 MG/ML Syringe IV (10:59)
[2022-01-30] MEDS: Prenatal Vits Tablet 1 TABLET PO (12:07)
[2022-01-30] MEDS: Lactated Ringers 1,000 ML 100 ML IV (12:10)
--- NOTE | 2022-01-30 12:53 | NURSING ---
1240 - pt's BG is 90 - called Dr. Dhaliwal's office and left message with Prabha about pt's BG before eating - she called me and stated Dr. Dhaliwal ordered to hold her noon dose of insulin Lispro and check a post-prandial BG 2 hours after eating.
[2022-01-30 14:23] LABS: Pathology Specimen OB SEE PATHOLOGY REPORT
--- NOTE | 2022-01-30 15:00 | NURSING ---
Addendum entered by Karley Balderas 01/30/22 15:52: BS taken at 1500 Original Note: Patient Blood Sugar with home monitoring system is 120 , 2hr post parandial
--- NOTE | 2022-01-30 17:00 | NURSING ---
BS 83 at 1700 on patient's home monitoring device
[2022-01-30] MEDS: Insulin Lispro 100 UNIT/ML INSULN.PEN 30 UNIT SC (17:15)
--- NOTE | 2022-01-30 19:32 | NURSING ---
patient BS 113 at 1930 with home blood sugar monitor
[2022-01-30] MEDS: Enoxaparin 40 MG/0.4 ML Syringe SC (20:02)
[2022-01-30] MEDS: oxyCODONE 5 MG Tablet PO (20:08)
[2022-01-30] MEDS: 0.9% Saline Lock 10 ML Syringe IV (21:12)
[2022-01-30] MEDS: Insulin Glargine-YFGN 100 UNIT/ML Pen 40 UNIT SC (22:09)
[2022-01-30] MEDS: Labetalol 200 MG Tablet PO (22:10)
--- NOTE | 2022-01-30 22:39 | NURSING ---
BP 75 at 2205 with pt. home blood sugar monitor
[2022-01-31] VITALS: BP 106/54; PULSE 73; RESP 16; TEMP 36.7
[2022-01-31] MEDS: Ketorolac 30 MG/ML Syringe IV (03:06)
[2022-01-31] MEDS: 0.9% Saline Lock 10 ML Syringe IV (03:07)
[2022-01-31 04:16] VITALS: BP 112/51; PULSE 74; RESP 16; TEMP 36.5
--- NOTE | 2022-01-31 05:49 | NURSING ---
RN in room. pt assessed BS per her patch and result was 83 fasting this AM.
[2022-01-31 05:58] LABS: Hematocrit 29.4 % (37-47); Hemoglobin 8.9 g/dL (12.0-15.0); Mean Corp Hgb Conc 30.3 g/dL (32-36); Mean Corpuscular Hgb 24.1 pg (27.0-32.0); Mean Corpuscular Volume 79.7 fL (81-99); Mean Platelet Vol. 10.3 fl (6.2-12.0); Platelet Count 217 K/mm3 (150-450); RBC Distribution Width CV 16.9 % (11.6-14.6); RBC Distribution Width SD 47.8 fl (35.1-43.9); Red Blood Count 3.69 M/mm3 (4.2-5.4); White Blood Count 9.9 K/mm3 (4.4-11.0)
[2022-01-31 06:05] VITALS: BP 136/84
[2022-01-31] MEDS: Acetaminophen 500 MG Tablet 1000 MG PO ×3 (06:18→18:33)
[2022-01-31] MEDS: Labetalol 200 MG Tablet PO ×2 (06:18→14:27)
[2022-01-31] MEDS: Ibuprofen 600 MG Tablet PO ×2 (08:24→14:52)
[2022-01-31] MEDS: Insulin Lispro 100 UNIT/ML INSULN.PEN 30 UNIT SC ×2 (08:25→12:59)
[2022-01-31 08:41] VITALS: BP 142/76; PULSE 90; RESP 12; TEMP 36.6
--- NOTE | 2022-01-31 10:09 | DCINST_ITS ---
Discharge Instructions Diet Discharge Diet: No restrictions Activity Discharge Activity: May Not Drive (for 2 weeks or while taking narcotic pain medications.), May Shower and May Take a Tub Bath (in 7 days.) May resume sexual activity in: 4-6 weeks Weight Bearing Status: Full weight bearing Lifting Restrictions: 20 pounds Dressing / Incision Call your doctor if your incision/area has: Continuous Slow Oozing, Sudden Increased Bleeding, Increased Pain/ Swelling, Increased Redness and Foul Smelling Discharge Call your doctor if you observe: Fever of 101 or Higher and Using more than 1 pad per hour Suture Line Care: Avoid Pulling/Pushing and Avoid Pinching/Bending Cleanse incision/area with: Soap & Water and Keep Dressing Clean & Dry Follow Up Care Please Follow Up With: Janett Dhaliwal DO When: Call [phone] to make an appointment for an incision check in 1-2 weeks. Test Results: Test results from this visit will be discussed in further detail at your follow- up appointment, if applicable. Discharge Plan Admission Admit Date/Time: 01/30/22 05:15 Primary Reason for Your Visit: section and bilateral salpingectomy Attending Provider: Lashell Fernández Primary Care Provider: Janes Hess Discharge Orders/Prescriptions Prescriptions: New ibuprofen 800 mg tablet 800 mg PO Q8H PRN (Reason: pain) 7 Days Qty: 30 0RF oxycodone-acetaminophen [Percocet] 5-325 mg tablet 1 tab PO Q4H PRN (Reason: pain) 7 Days Qty: 30 0RF Continued (DME) FreeStyle Fili 2 Sensor Kit See Rx Instructions .ROUTE .MEDSUPPLY Qty: 2 6RF Rx Instructions: As directed trazodone 100 mg tablet 50 mg PO QHS PRN (Reason: insomnia) Qty: 30 12RF buspirone 5 mg tablet 5 mg PO BID PRN (Reason: anxiety) Qty: 60 1RF labetalol 200 mg tablet 200 mg PO TID Rx Instructions: TAKE 1 TABLET BY MOUTH 3 TIMES A DAY hydroxyzine pamoate [Vistaril] 50 mg capsule 50 mg PO QHS escitalopram oxalate [Lexapro] 5 mg tablet 5 mg PO DAILY Integra Plus 125 mg iron- 1 mg capsule 1 cap PO DAILY Rx Instructions: administer between meals Slow Fe 142 mg (45 mg iron) tablet extended release 142 mg PO BID One A Day Women's DHA 28 mg iron- 800 mcg combo pack 1 pkg PO QDAY Rx Instructions: 1 tab daily Changed insulin lispro [Humalog KwikPen Insulin] 100 unit/mL insulin pen 30 unit subcut .TIDCM Qty: 15 0RF insulin degludec [Tresiba FlexTouch U-100] 100 unit/mL (3 mL) insulin pen 40 unit subcut QHS Qty: 15 0RF Referrals / Follow Up: Janes Hess MD [Primary Care Provider] - Disposition Disposition (needs filled in before D/C Order can be placed): Home, Self Care
[2022-01-31] MEDS: Senna/Docusate Sodium 1 Tablet PO (10:15)
[2022-01-31] MEDS: Escitalopram Oxalate 10 MG Tablet 5 MG PO (10:15)
--- NOTE | 2022-01-31 10:40 | PCM.PN.OB ---
Subjective Subjective Patient is laying in bed comfortably without complaints. She states that she slept on an off during the night. Lochia is mild and pain is minimal. Objective Data Objective Data Vital Signs: Vital Signs Temp Pulse Resp BP Pulse Ox O2 Del Method 97.9 F 90 12 142/76 H 97 Room Air 01/31/22 08:41 01/31/22 08:41 01/31/22 08:41 01/31/22 08:41 01/30/22 18:00 01/31/22 00:00 Oxygen Delivery Method Room Air Weight: 319 lb 3.669 oz Body Mass Index (BMI) 50.0 Intake & Output: Intake and Output for Last 24 Hours 01/29/22 01/30/22 01/31/22 23:59 23:59 23:59 Intake Total 3290.00 / 3290.00 Output Total 775 / 775 Balance 2515.00 / 2515.00 Lab / Micro Data Result Diagrams: 01/31/22 05:40 Labs: Laboratory Results - last 24 hr 01/31/22 05:40: WBC 9.9, RBC 3.69 L, Hgb 8.9 L, Hct 29.4 L, MCV 79.7 L, MCH 24.1 L, MCHC 30.3 L, RDW Std Deviation 47.8 H, RDW Coeff of Ranjana 16.9 H, Plt Count 217, MPV 10.3 Micro: Microbiology 01/30/22 07:20 Nasal Secretion SARS-CoV-2 Antigen (Rapid) - Final ROS Constitutional Constitutional: Reports systems reviewed and no addt'l complaints, except as documented Cardiovascular Cardiovascular: Denies chest pain, dizziness, dyspnea or irregular heart rhythm Respiratory/Chest Respiratory/Chest: Denies cough, pain on inspiration or shortness of breath at rest Gastrointestinal Gastrointestinal: Denies abdominal pain, nausea or vomiting Genitourinary Genitourinary: Denies burning urination Musculoskeletal Musculoskeletal: Denies muscle cramps, muscle spasms or muscle weakness Neurologic Neurologic: Denies confusion, dizziness, headache(s) or lack of coordination Psychiatric Psychiatric: Denies anxiety, behavioral changes or depression Physical Exam HEENT normocephalic Resp normal respiratory effort and normal air movement GI soft to palpation, non-tender and non-distended Rectal Exam: other Other Details: Incision is clean, dry, and intact no CVA tenderness Extremity normal to inspection General Extremity: edema bilateral (trace ) Assessment & Plan (1) Status post section: COMMENT: 01/30/22- JV, BB girl janette with bilateral salpingectomy (2) Obesity, morbid, BMI 40.0-49.9: (3) Anxiety and depression: (4) Recurrent loss: COMMENT: 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 (5) Supervision of high risk , antepartum: COMMENT: CRIS:02/12/22, girl, PC:Lu Baird. Spouse: Tino Burk) (6) : COMMENT: GBS neg. AFP neg. NIPT low risk, Discussed genetic and carrier screen, tox + possibly d/t labetalol or buspar. random screens. Anatomy normal but profile still not seen. FU US nl (7) Rh negative state in antepartum period: COMMENT: Rhogam 28 wk, pp and prn bleeding. (8) Family history of cleft lip and palate: COMMENT: FOB uncle and nephew (9) Modified White class B pregestational diabetes mellitus: COMMENT: baseline labs, ekg, endocrine cs, prefer insulin only control, optho cs ordered (10) Anemia affecting : COMMENT: additional testing ordered (11) Family history of congenital heart defect: COMMENT: FOB septal defect repaired age 4. plan echo at 22-24 weeks (12) Diabetes mellitus affecting : QUALIFIERS: Trimester: second trimester Qualified Code(s): O24.912 - Unspecified diabetes mellitus in , second trimester (13) Chronic hypertension affecting : COMMENT: on labetalol. will need baseline pr: cr, testing, growth scans 28,32,36 weeks, and delivery at 38 - 39 weeks (pending MFM consultation) with weekly BPP starting at 32 weeks per MFM.12/28 nl BPP. Growth US normal 12/20, 01/11 nl BPP,01/24 nl BPP (14) Alpha thalassemia silent carrier: (15) S/P : COMMENT: x2, desires repeat with btl. Scheduled for 01/30 @ 12 with SM (16) Abnormal Pap smear of cervix: COMMENT: nl pap at [facility] in february (17) Hypertension: QUALIFIERS: Hypertension type: unspecified Qualified Code(s): I10 - Essential (primary) hypertension COMMENT: Pre E labs at NO[facility], baseline labs. PLAN: Plan s/p LTCS PPD #1 1. routine post care 2. breast feeding- support given 3. rh positive 4. rubella immune 5. continue insulin at half dose 6. continue home going meds 7. home with percocet and motrin for pain
--- NOTE | 2022-01-31 11:02 | NURSING ---
Spectra pump given to pt. Pt. on phone and requesting RN return later to talk about breast pump. Will check back in a bit.
[2022-01-31] MEDS: Prenatal Vits Tablet 1 TABLET PO (11:49)
[2022-01-31 13:05] VITALS: BP 120/60; PULSE 80; RESP 16; TEMP 36.4
--- NOTE | 2022-01-31 18:52 | NURSING ---
pt states her glucose sensor needs replaced and she will do it at home.
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
--- NOTE | 2022-02-01 14:19 | CASEMGMT ---
Social Work Labor and Delivery Unit Faxed early [facility] referral form to confirmed fax number at [facility] in [place]. Arranged mental health intake appointment at the counseling center per verbal consent by the patient/mother of baby (MOB). Intake appointment for 02/15/2022 with an arrival time of 0830. Will see therapist Areli Hancock at 0900. Called the MOB at her phone number, and the reported father of baby (FOB) Tino Aaron answered the phone stating the MOB was resting. Left this speech writer's name and number for MOB to call back to receive appointment. Placing handwritten letter in the mail to MOB's confirmed address with appointment time and date. Spoke with [facility] children services intake supervisor pyrotechnic loading Janett Hamilton ([phone], extension [phone]). Referral for multiple dependency concerns identified during social work assessment. Concerns related to maternal mental health, reports by MOB regarding the 11 year old step son's mental health, food insecurity, limited support available. Reported positive drug screen in , though did not have a chance to explore with MOB this drug screen. Informed Janett that MDMA/Ecstasy is a common substance where see false positives for some antidepressants. Brief maternal and histories provided. No other services requested or indicated. [facility] will be following up with this family. -ROSITA Howard, DARA
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
--- NOTE | 2022-02-04 14:56 | NURSING ---
finished follow up phone call questions with patient. She is doing well. Baby is doing well and eating well. Mother's bleeding has decreased since delivery. No concerns of headache, visual changes, or emotional changes at this time. No questions about discharge instructions. Denies need for appt as she already had a WIC appt
== END 2022-01-31 18:45 | disposition home or self-care (01) | DRG 539 ==
PROVIDERS: Obstetrics & Gynecology; Admitting Provider Obstetrics & Gynecology; PCP Internal Medicine; Visit Provider Obstetrics & Gynecology
PROC: (CPT 59514; principal; 2022-01-30 07:15)
DX: O24.12 Pre-existing type 2 diabetes mellitus, in childbirth (principal); E11.9 Type 2 diabetes mellitus without complications; Z79.4 Long term (current) use of insulin; E66.01 Morbid (severe) obesity due to excess calories; F41.9 Anxiety disorder, unspecified; O26.23 Pregnancy care for patient with recurrent pregnancy loss, third trimester; O99.214 Obesity complicating childbirth; Z3A.38 38 weeks gestation of pregnancy; O99.344 Other mental disorders complicating childbirth; F32.A Depression, unspecified; F43.10 Post-traumatic stress disorder, unspecified; Z80.8 Family history of malignant neoplasm of other organs or systems; Z37.0 Single live birth; Z87.891 Personal history of nicotine dependence; Z82.79 Family history of other congenital malformations, deformations and chromosomal abnormalities
CPT/HCPCS: 76819; 82962; 85025; 85027; 86850; 86900; 86901; 87426; 88302; 99218; J7120; A4216; G0378; J2405

== ENCOUNTER 2022-02-11 17:44 | Outpatient (CLI) | payer MEDICAID, SELFPAY ==
[2022-02-11] VITALS (44 sets, daily range): BP systolic 143–183; BP diastolic 65–102; PULSE 48–78; RESP 18; TEMP 36.5; O2SAT 94–99; BMI 46.5
[2022-02-11] MEDS: NIFEdipine 30 MG Tablet PO (18:58)
--- NOTE | 2022-02-11 18:59 | NURSING ---
[address] aguirre made aware of pts c/o feeling lightheaded, having blurry vision, feeling sweaty, and a headache that comes and goes. pt states that she can also feel her heartbeat in her head. assessment done lochia scant, incision without any signs of infection, pt denies any SOB fundus firm and 4 under umbilicus, lungs clear, reflexes +2, no clonus, no pedal edema, pt denies any leg pain, denies any history of fever, denies any s/s of UTI, denies vomiting or loose stools. Pt is diabetic on insulin and has a blood glucose reader on her arm and current level is 94 by her machine. pt states that she has been on trandate 200 mg tid since delivery via csection on 01/30. pts Bp 143/80 Pulse 56 Resp 18 Pulse ox 98% Temp 97.7. Pts pulse consistently in the 50's. pt last took her trandate at 1630 today. Plan of care is to try a new BP med and dc pts trandate if pt tolerates medication without any reaction or side effects per Dr Aguirre
[2022-02-11 20:56] LABS: Hemoglobin 11.2 g/dL (12.0-15.0); Mean Corp Hgb Conc 30.3 g/dL (32-36); Mean Corpuscular Hgb 23.8 pg (27.0-32.0); Mean Corpuscular Volume 78.7 fL (81-99); Mean Platelet Vol. 9.1 fl (6.2-12.0); Platelet Count 338 K/mm3 (150-450); RBC Distribution Width CV 16.5 % (11.6-14.6); RBC Distribution Width SD 46.9 fl (35.1-43.9); White Blood Count 8.5 K/mm3 (4.4-11.0)
[2022-02-11 21:14] LABS: AST(SGOT) 12 U/L (15-37); Alanine Aminotransfer ALT/SGPT 30 U/L (13-56); Creatinine, Serum 0.86 mg/dL (0.55-1.02); EST Glomerular Filtration Rate 81 mL/min (>60); Est Glom Filt Rate - Afr Amer 98 mL/min (>60); Estimated Creatinine Clearance 91.33 ml/min
[2022-02-11 21:52] LABS: Protein, Urine (Random) 277.3 mg/dL (<11.9); Protein:Creat Ratio 12779 mg/g CRE (0-200)
--- NOTE | 2022-02-12 10:43 | OB.TRI.HP_ITS ---
HPI - General HPI Narrative VISHAL DIAZ, is a 32 y/o who presents to [facility] ER on 02/11/22 due to elevations in her blood pressure and multiple symptoms including dizziness and mild headache, not feeling right. She stated that she woke up in the middle of the night last night drenched in sweat. Her bp was elevated in ER initially in the triage setting and she was sent down to L&D to rule out pre-eclampsia. Blood pressures were 140's/70's but pulse was noted to be in the 50's. She takes 200 mg labetalol TID but states that she has taken this medication for a very long time and never had bradycardia. Maternal Data Information CRIS Calculator Estimated Delivery Date Method Current WG Current Estimate 02/12/22 LMP (Certain) 40w 0d [facility] Medical History (Updated 02/12/22 @ 10:[address] Janett Dhaliwal, DO) Abnormal Pap smear of cervix Anxiety Chronic hypertension Diabetes Diabetes mellitus Fibroids Hypertension Pre-eclampsia PTSD (post-traumatic stress disorder) Seasonal allergies Home Medications FreeStyle Fili 2 Sensor (flash glucose sensor) #2 ea 08/04/21 [Rx Last Taken Unknown] trazodone 100 mg tablet 50 mg PO QHS PRN insomnia #30 tabs 10/21/21 [Rx Last Taken 01/26/22 22:00 100 mg] escitalopram oxalate 5 mg tablet (Lexapro) 5 mg PO DAILY Check with primary doctor 01/30/22 [History Last Taken 01/29/22 08:00 5 mg] ferrous sulfate 142 mg (45 mg iron) tablet,extended release (Slow Fe) 142 mg PO BID Check with primary doctor 01/30/22 [History Last Taken Unknown] hydroxyzine pamoate 50 mg capsule (Vistaril) 50 mg PO QHS Check with primary doctor 01/30/22 [History Last Taken Unknown] iron fum,ps comp 125 mg iron-folic acid 1 mg-vit B comp,C no.9 capsule (Integra Plus) 1 cap PO DAILY Check with primary doctor 01/30/22 [History Last Taken Unknown] labetalol 200 mg tablet 200 mg PO TID Check with primary doctor 01/30/22 [History Last Taken 01/30/22 05:45 200 mg] vits 75-iron 28 mg-folic acid 800 mcg-omega-3 oral combo pack (One A Day Women's DHA) 1 pkg PO QDAY Check with primary doctor 01/30/22 [History Last Taken 01/29/22 08:00] ibuprofen 800 mg tablet 800 mg PO Q8H PRN pain 7 days #30 tabs 01/31/22 [Rx Last Taken Unknown] insulin degludec 100 unit/mL (3 mL) subcutaneous pen (Tresiba FlexTouch U-100 insulin) 40 unit (0.4 mL) subcut QHS Check with primary doctor #15 mL 01/31/22 [Rx Last Taken Unknown] insulin lispro 100 unit/mL subcutaneous pen (Humalog KwikPen (U-100) Insulin) 30 unit (0.3 mL) subcut .TIDCM Check with primary doctor #15 mL 01/31/22 [Rx Last Taken Unknown] oxycodone-acetaminophen 5 mg-325 mg tablet (Percocet) 1 tab PO Q4H PRN pain 7 days #30 tabs 01/31/22 [Rx Last Taken Unknown] buspirone 5 mg tablet 5 mg PO BID PRN anxiety #60 tabs 02/10/22 [Rx Last Taken Unknown] labetalol 100 mg tablet 100 mg PO TID 30 days #90 tabs 02/12/22 [Rx Last Taken Unknown] nifedipine 30 mg tablet,extended release 24 hr (Procardia XL) 30 mg PO DAILY #30 tabs 02/12/22 [Rx Last Taken Unknown] Allergy/AdvReac Type Severity Reaction Status Date / Time etonogestrel [From Nexplanon] Allergy Swelling Verified 01/27/22 09:37 levonorgestrel [From Mirena] Allergy Other Verified 01/27/22 09:37 Family History Father Diabetes Kidney disease Hypertension Heart disease Mother Depression Diabetes Heart disease Grandmother Dementia Aunt Thyroid cancer Fredrick's disease Surgical History (Updated 01/31/22 @ 10:[address] Janett Dhaliwal DO) diagnostic laparoscopy H/O dilation and curettage H/O removal of cyst History of dilation and curettage Previous section S/P S/P surgical removal of pilonidal cyst Social History adopted: No household members: spouse, children and other details: 1 step son in home number of children: 3 current occupational status: unemployed current occupation: [employer] pets and animals: Yes pets and animals: cat(s), dog(s), fish and snake(s) Smoking Status: Former smoker alcohol intake: never substance use type: marijuana and other details: rare use/not since caffeine: Yes (rare) what type of physical activity do you participate in: none seatbelt use: always do you feel safe at home: Yes additional social history: - Tino History 14 Elective abortions Hx Para 2 Spontaneous abortions 11 Hx # Term Pregnancies Ectopic pregnancies Hx # Pregnancies Multiple births # of living children 2 Past Pregnancies Del. Date Name GA/Weeks Outcome Route Bth Weight Gen Labor [facility] F[facility] 12/21/12 Brie 34 live - 5lbs 4oz Female [facility] Dr. 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 Relevant counseling for the gestational age provided. Continue routine care and follow up unless otherwise noted in visit notes/problem list details OB Flowsheet Initial Weight: 284 lb Date -?-?-?-?-?-?-?-?-?-?-?-?- EGA Weight BP Urine Prot -?-?-?-?-?-?-?-?-?-?-?-?- Glucose FHR FuHt Pres Dilation -?-?-?-?-?-?-?-?-?-?-?-?- Effaced St Visit Note 07/14/21 -?-?-?-?-?-?-?-?-?-?-?-?- 9w 4d 284 lb (+0 oz) 124/86 -?-?-?-?-?-?-?-?-?-?-?-?- 170 -?--?-?-?-?-?-?-?-?-?-?-?- SM- CRL 2.2cm co ns with LMP 07/29/21 -?-?-?-?-?-?-?-?-?-?-?-?- 11w 5d 286 lb 6 oz (+2 lb 6 oz) 148/84 128/80 Negative -?-?-?-?-?-?-?-?-?-?-?-?- Negative 150 -?-?-?-?-?-?-?-?-?-?-?-?- SM- no vb crampi ng, some nausea, hasn't started checking BS yet- discussed withthe patient how important this is and the high risk for defects and complications if she doesn't. has appointment with endocrine. 08/12/21 -?-?-?-?-?-?-?-?-?-?-?-?- 13w 5d 290 lb 4 oz (+6 lb 4 oz) 130/72 Negative -?-?-?-?-?-?-?-?-?-?-?-?- Negative 130 -?-?-?-?-?-?-?-?-?-?-?-?- JV- no lof, vagi nal bleeding, or cramping. Bedside scan today to document viability and reassurance. Glucose currently is 145 (ate 2 hours ago) she is on a rapid acting glucose only as she waits for her insurance to cover the longer acting. She needs assistance with loading glucose levels into the patient portal system for dr. Dumont to see. bp currently stable. if increase needed will consider procardia as her pulse rate is low today (60's) 08/25/21 -?-?-?-?-?-?-?-?-?-?-?-?- 15w 4d 292 lb 6 oz (+8 lb 6 oz) 148/80 Negative -?-?-?-?-?-?-?-?-?-?-?-?- Negative 143 -?-?-?-?-?-?-?-?-?-?-?-?- JV- no cramping or bleeding. bp slightly elevated from baseline rpt was 142/78. 09/22/21 -?-?-?-?-?-?-?-?-?-?-?-?- 19w 4d 298 lb 8 oz (+14 lb 8 oz) 130/70 Negative -?-?-?-?-?-?-?-?-?-?-?-?- Negative 140 -?-?-?-?-?-?-?-?-?-?-?-?- JV- used bedside ultrasound to find heart tones today. anatomy us was yesterday and results are pending . she will need to go back for additional views. 10/21/21 -?-?-?-?-?-?-?-?-?-?-?-?- 23w 5d 300 lb (+16 lb) 138/60 Negative -?-?-?-?-?-?-?-?-?-?-?-?- Negative 140 -?-?-?-?-?-?-?-?-?-?-?-?- SM- no vb lof go od fm no regular ctx. BS suboptimal controlled still adjusting. SM- no vb lof good fm no reg ular ctx. BS suboptimal controlled still adjusting. discussed trazodone added for sleep and mood, switched to lexapro also. 11/25/21 -?-?-?-?-?-?-?-?-?-?-?-?- 28w 5d 300 lb 2 oz (+16 lb 2 oz) 124/76 Negative -?-?-?-?-?-?-?-?-?-?-?-?- Negative 147 -?-?-?-?-?-?-?-?-?-?-?-?- JV- pt states th at fasting levels are normal, but 2 hrs are 140-180 range recently. JV- pt states that fasting l evels are normal, but 2 hrs are 140-180 range recently but did not have insulin for a few meal. right now she is 128 2 hr postprandial JV- pt states that fasting l sally are normal, but 2 hrs are 140-180 range recently but did not have insulin for a few meal. right now she is 128 2 hr postprandial. rhogam today. 12/08/21 -?-?-?-?-?-?-?-?-?-?-?-?- 30w 4d 310 lb 4 oz (+26 lb 4 oz) 134/70 Negative -?-?-?-?-?-?-?-?-?-?-?-?- Negative 148 -?-?-?-?-?-?-?-?-?-?-?-?- JV- now on 40 b, 35 l, 35 d of R 60 of nph at bedtime. no lof, vaginal bleeding, or dec fm. plans tubal ligation 12/23/21 -?-?-?-?-?-?-?-?-?-?-?-?- 32w 5d 310 lb 4 oz (+26 lb 4 oz) 106/66 -?-?-?-?-?-?-?-?-?-?-?-?- 145 -?-?-?-?-?-?-?-?-?-?-?-?- JV-pt had insuli n increasead again to 70 nph, and 44,38,40 of R. JV- NST reactive pt had insu lance increasead again to 70 nph, and 44,38,40 of R. 12/30/21 -?-?-?-?-?-?-?-?-?-?-?-?- 33w 5d 313 lb 2 oz (+29 lb 2 oz) 138/70 Negative -?-?-?-?-?-?-?-?-?-?-?-?- Negative -?-?-?-?-?-?-?-?-?-?-?-?- JV- rpt section scheduled 01/30. bpp this week was 12/12, NST today JV- rpt section scheduled . bpp this week was 12/12, NST today has 10 x 10 accels. discussed will need 15 x 15 after 34 weeks, however because bpp was recently 12/12, ok to rpt early next week. kick counts discussed. no changes insu lance. 01/06/22 -?-?-?-?-?-?-?-?-?-?-?-?- 34w 5d 315 lb (+31 lb) 115/68 Negative -?-?-?-?-?-?-?-?-?-?-?-?- Negative 140 -?-?-?-?-?-?-?-?-?-?-?-?- JV- nst not reac tive today, bpp was yesterday and was 12/12. gave granola bar and sending for a walk to have nst reapeated on L&D. 01/13/22 -?-?-?-?-?-?-?-?-?-?-?-?- 35w 5d 320 lb 2 oz (+36 lb 2 oz) 122/66 Negative -?-?-?-?-?-?-?-?-?-?-?-?- Negative 147 -?-?-?-?-?-?-?-?-?-?-?--?- JV- nph 80 at be dtime reguler 60 am, 45 lunch, 52 dinner. The insulin levels continue to rise. plan for delivery at 38 weeks. JV- nph 80 at bedtime regule r 60 am, 45 lunch, 52 dinner. The insulin levels continue to rise. plan for delivery at 38 weeks. BPP was 12/12 today 01/20/22 -?-?-?-?-?-?-?-?-?-?-?-?- 36w 5d 320 lb 8 oz (+36 lb 8 oz) 119/74 Negative -?-?-?-?-?-?-?-?-?-?-?-?- Negative 155 37 Cephalic 0 -?-?-?-?-?-?-?-?-?-?-?-?- -4 JV- bpp 12/12 today, gbs collected. labor precautions disucssed. rpt section scheduled and pt has the time to arrive. will give her the body wash next visit. 01/27/22 -?-?-?-?-?-?-?-?-?-?-?-?- 37w 5d 324 lb 2 oz (+40 lb 2 oz) 122/81 Negative -?-?-?-?-?-?-?-?-?-?-?-?- Negative 141 Cephalic -?-?-?-?-?-?-?-?-?-?-?-?- 0.5 JV- bpp 12/12, section on Sunday. no complaints. ROS Constitutional Constitutional: Denies change in weight, chills, fatigue, fever(s), poor a ppetite or weakness Eyes Eyes: Denies seeing flashes or spots in vision ENT HEENT: Denies loss taste/smell or sore throat Cardiovascular Cardiovascular: Denies chest pain, dyspnea, irregular heart rhythm, leg edema, palpitations, rapid heart rate or vomiting Respiratory/Chest Respiratory/Chest: Denies chest tightness, cough, dyspnea or breast pain Gastrointestinal Gastrointestinal: Denies abdominal pain, anorexia, constipation, cramping, diarrhea, hemorrhoids, vomiting or weight changes Genitourinary Genitourinary: Denies dysuria, flank pain, genital lesions, genital pain, urinary frequency or urinary urgency Musculoskeletal Musculoskeletal: Denies back pain, difficulty walking, joint pain, limited range of motion, muscle cramps or numbness Integumentary Integumentary: Denies lesions or unusual bruising Neurologic Neurologic: Denies abnormal movements, abnormal speech, numbness, seizure-like activity or syncope Psychiatric Psychiatric: Denies anxiety, behavioral changes, change in appetite, confusion or depression Endocrine Endocrinology: Denies polydipsia or polyuria Assessment & Plan (1) Pre-eclampsia, : COMMENT: labs all normal with exception of Pr:Cr ratio of 12,000. Blood pressures still stable PLAN: plan to dc to home with close follow up and addition of Procardia to bp regimen. decrease labetalol to 100 tid to try to control pulse and add procardia 30xl dialy. pt to call in daily with bp read and follow up in office . home bed rest encouraged. (2) Status post section: COMMENT: 01/30/22- CHARISSE DAWSON girl janette with bilateral salpingectomy
== END 2022-02-11 22:20 | disposition home or self-care (01) ==
LOC: WPOUT 17:55 → WP 17:55
PROVIDERS: PCP Internal Medicine; Referring Provider Obstetrics & Gynecology; Visit Provider Obstetrics & Gynecology
DX: O11.5 Pre-existing hypertension with pre-eclampsia, complicating the puerperium (principal); Z79.4 Long term (current) use of insulin; E11.9 Type 2 diabetes mellitus without complications; F43.10 Post-traumatic stress disorder, unspecified; O24.913 Unspecified diabetes mellitus in pregnancy, third trimester; O99.343 Other mental disorders complicating pregnancy, third trimester; Z3A.40 40 weeks gestation of pregnancy; Z87.891 Personal history of nicotine dependence
CPT/HCPCS: 36415; 82565; 82570; 84156; 84450; 84460; 84550; 85027; 99218; G0378

== ENCOUNTER → 2022-04-05 | Outpatient (CLI) | payer MEDICAID, SELFPAY ==
[2022-04-11 20:59] LABS: HPV APTIMA, High Risk Negative (Negative)
== END | disposition home or self-care (01) ==
LOC: LABSPEC 14:13
PROVIDERS: Visit Provider Registered Nurse
DX: Z12.4 Encounter for screening for malignant neoplasm of cervix (principal)
CPT/HCPCS: 87624; 88175; G0145

== ENCOUNTER → 2022-06-09 | Outpatient (CLI) | payer MEDICAID, SELFPAY ==
[2022-06-09 12:05] LABS: Absolute Lymphocyte Count 1.61 X10^3/uL (0.83-4.51); Absolute Neutrophil Count 3.7 X10^3/uL (2.0-7.7); Basophil# 0.07 X10^3/uL; Basophil% 1.1 % (0-1); Eosinophil# 0.74 X10^3/uL; Eosinophils% 11.5 % (0-5); Hemoglobin 11.4 g/dL (12.0-15.0); Lymphocyte # 1.61 X10^3/ul (0.83-4.51); Lymphocyte % 24.9 % (19-41); Mean Corp Hgb Conc 30.8 g/dL (32-36); Mean Corpuscular Hgb 24.8 pg (27.0-32.0); Mean Corpuscular Volume 80.6 fL (81-99); Monocyte# 0.27 X10^3/uL; Monocyte% 4.2 % (0-10); NRBC Flagged by Analyzer 0 % (0-5); Neutrophil # 3.69 X10^3/uL (2.7-7.7); Neutrophil % 57.1 % (47-70); Platelet Count 328 K/mm3 (150-450); RBC Distribution Width CV 14.4 % (11.6-14.6); RBC Distribution Width SD 42.2 fl (35.1-43.9); Red Blood Count 4.59 M/mm3 (4.2-5.4); White Blood Count 6.5 K/mm3 (4.4-11.0)
[2022-06-09 12:22] LABS: ALB/GLOB Ratio 0.9 RATIO (0.9-2.4); AST(SGOT) 20 U/L (15-37); Alanine Aminotransfer ALT/SGPT 31 U/L (13-56); Albumin, Serum 3.8 g/dL (3.2-5.0); Alkaline Phosphatase 66 U/L (45-117); Anion Gap 9 (5-15); BUN 14 mg/dL (7-18); BUN/Creat Ratio 19.5 RATIO (10-20); Calcium,Total 9.4 mg/dL (8.5-10.1); Chloride 104 mmol/L (98-107); Creatinine, Serum 0.72 mg/dL (0.55-1.02); EST Glomerular Filtration Rate 100 mL/min (>60); Est Glom Filt Rate - Afr Amer 121 mL/min (>60); Globulin 4.3 g/dL (2.2-4.2); Glucose 130 mg/dL (74-106); Potassium 4.2 mmol/L (3.5-5.1); Protein, Total 8.1 g/dL (6.4-8.2); Sodium Level 140 mmol/L (136-145)
[2022-06-09 12:29] LABS: Microalbumin:Creatinine Ratio 16.2 mg/g CRE (<30 mg/g CRE)
[2022-06-09 12:41] LABS: Hemoglobin A1c 6.6 % (3.8-5.6)
== END | disposition home or self-care (01) ==
LOC: BIMLAB 10:02
PROVIDERS: PCP Internal Medicine; Referring Provider Internal Medicine; Visit Provider Internal Medicine
DX: E11.9 Type 2 diabetes mellitus without complications (principal)
CPT/HCPCS: 36415; 80053; 82043; 82570; 83036; 85025

== ENCOUNTER → 2022-08-09 | Outpatient (CLI) | payer MEDICAID, SELFPAY ==
[2022-08-09 16:56] LABS: ALB/GLOB Ratio 0.8 RATIO (0.9-2.4); AST(SGOT) 24 U/L (15-37); Alanine Aminotransfer ALT/SGPT 35 U/L (13-56); Albumin, Serum 3.3 g/dL (3.2-5.0); Alkaline Phosphatase 62 U/L (45-117); Anion Gap 9 (5-15); BUN 15 mg/dL (7-18); Calcium,Total 9.2 mg/dL (8.5-10.1); Chloride 102 mmol/L (98-107); Creatinine, Serum 0.75 mg/dL (0.55-1.02); EST Glomerular Filtration Rate 95 mL/min (>60); Est Glom Filt Rate - Afr Amer 115 mL/min (>60); Globulin 3.9 g/dL (2.2-4.2); Glucose 229 mg/dL (74-106); Potassium 3.5 mmol/L (3.5-5.1); Protein, Total 7.2 g/dL (6.4-8.2); Sodium Level 136 mmol/L (136-145)
== END | disposition home or self-care (01) ==
LOC: BIMLAB 13:38
PROVIDERS: PCP Internal Medicine; Visit Provider Nurse Practitioner Family
DX: I10 Essential (primary) hypertension (principal)
CPT/HCPCS: 36415; 80053

== ENCOUNTER 2022-08-30 14:00 | Outpatient (RCR) | payer MEDICAID, SELFPAY | END 2022-09-03 23:59 | LOC: DC 14:00 | PROVIDERS: PCP Internal Medicine; Referring Provider Nurse Practitioner Family; Visit Provider Nurse Practitioner Family | DX: E11.9 Type 2 diabetes mellitus without complications (principal) | CPT/HCPCS: 97802; G0108 ==

== ENCOUNTER 2022-09-27 10:00 | Outpatient (RCR) | payer MEDICAID, SELFPAY | END 2022-10-04 23:59 | LOC: DC 10:00 | PROVIDERS: PCP Internal Medicine; Referring Provider Nurse Practitioner Family; Visit Provider Nurse Practitioner Family | DX: E11.9 Type 2 diabetes mellitus without complications (principal) | CPT/HCPCS: 97803; G0108 ==

== ENCOUNTER → 2023-01-25 | Outpatient (CLI) | payer MEDICAID, SELFPAY ==
--- NOTE | 2023-01-25 08:36 | RAD_ITS ---
INDICATION: Chronic Thoracic Spine Pain -- -- INCREASING BACK PAIN, NKI EXAMINATION/TECHNIQUE: X-RAY - XR Spine Thoracic 2 Views COMPARISON: None FINDINGS: VERTEBRAE: Preserved vertebral body height. No fracture. No spondylolisthesis. Exaggeration of the normal thoracic kyphosis. Mild multilevel facet arthropathy. DISCS: Mild multilevel degenerative disc disease and spondylosis. INCLUDED CHEST/ABDOMEN: No acute abnormalities. RAD/Thoracic Spine 2 Views IMPRESSION: No evidence of thoracic spinal fracture or spondylolisthesis. Exaggerated kyphosis. Mild multilevel degenerative disc disease and spondylosis. Electronically Signed: Josue Narayanan MD at 18:45 EDT ,
--- NOTE | 2023-01-25 08:36 | RAD_ITS ---
INDICATION: Chronic Back pain -- INCREASING BACK PAIN, NKI EXAMINATION/TECHNIQUE: X-RAY - XR Spine Lumbar Min 4 Views COMPARISON: None. FINDINGS: VERTEBRAE: Preserved vertebral body height. No fracture. No spondylolisthesis. Preservation of the normal lumbar lordosis. DISCS: Disc spaces are maintained. INCLUDED ABDOMEN: Included bowel gas pattern is non-obstructive. RAD/L/S Spine Min 4 Views IMPRESSION: Unremarkable study. Electronically Signed: Shemar Dong MD at 20:02 EDT ,
--- NOTE | 2023-01-25 08:36 | RAD_ITS ---
INDICATION: Chronic neck pain, no known injury EXAMINATION/TECHNIQUE: X-RAY - XR Spine Cervical 2 or 3 Views COMPARISON: None. FINDINGS: VERTEBRAE: Preserved vertebral body height. No fracture. No spondylolisthesis. Straightening of the normal cervical lordosis. Small C7 cervical ribs. DISCS: Disc spaces are maintained. NECK SOFT TISSUES: No prevertebral soft tissue widening. LUNG APICES: Clear. RAD/Cerv Spine 2 or 3 Views IMPRESSION: Small bilateral C7 cervical ribs, otherwise unremarkable study.. Electronically Signed: Shemar Dong MD at 19:47 EDT ,
== END | disposition home or self-care (01) ==
PROVIDERS: PCP Internal Medicine; Referring Provider Internal Medicine; Visit Provider Internal Medicine
DX: M54.2 Cervicalgia (principal); M54.9 Dorsalgia, unspecified; G89.29 Other chronic pain
CPT/HCPCS: 72040; 72070; 72110

== ENCOUNTER 2023-03-01 08:00 | Outpatient (RCR) | payer MEDICAID, SELFPAY ==
--- NOTE | 2022-12-21 10:58 | HP.PTEVAL_ITS ---
Patient's Visit Information Visit Information Visit Information: VISHAL DIAZ is a 32 year old F referred to Physical Therapy by Dr. Janes Hess MD with a diagnosis of Cervicalgia, M54.2; Chronic neck and back pain. Date of Evaluation: 12/21/22 Physical Therapist: Aramis Doan Visit Plan Frequency: 2x /Week Duration: 6 Weeks Plan: Continue with trying aquatic physical therapy. Transition to land therapy to work on improving neck, core, and back strengthening. Use manual therapy and modalities as needed for pain control. Subjective Subjective: Pt. is a 32 y.o. female who has had back pain for many years but has noticed that her back and her neck have been bothering her more in the last few months. She has not had any recent imaging. Pt. will occasionally get numbness and tingling down both of her legs to her feet. Pt. denies any change in her bowel or bladder function and denies being . Pt. also denies any unex plained weight loss. She has difficulty with sitting longer than 5 minutes, standing/walking longer than 15-20 minutes, occasionally sleeping, bending forward, lifting things, looking up/down, turning her head, housework, and yard work. 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 Her goal with physical therapy is to be able to go on walks without having to stop several of times. She has had previous physical therapy for her back both aquatic and land therapy. Pt. rates upper back pain at 8/10 currently, at worst 10/10, at best 3/10 and describes the pain as dull, achy, and burning. Pt. takes Tylenol for pain. Her PMH includes type II diabetes, smoker about 1/2 pack a day, three C-sections, abscess removal/drainage, tubal ligation and chronic back pain. Her hobbies include gardening and playing Pok?mon go. Objective Objective: Posture- Mild forward flexed posture Palpation- Vague tenderness over whole cervical, thoracic, and lumbar spine Cervical AROM- WNL for all motions Thoracic AROM- WNL for all motions Lumbar AROM flexion- min restriction and moderate low back pain Extension- WNL and mild low back pain SB to left- WNL and mild low back pain SB to right- WNL and mild low back pain Left shoulder strength- Grossly 4/5 for all motions Right shoulder strength- Grossly 4/5 for all motions Left LE strength hip flexion 5/5, abduction 4+/5, adduction 5/5, extension 4/5, knee flexion 5/5, knee extension 5/5, ankle DF 5/5, PF 5/5 Right LE strength hip flexion 5/5, abduction 4+/5, adduction 5/5, extension 4/5, knee flexion 5/5, knee extension 5/5, ankle DF 5/5, PF 5/5 Core strength- 4/5 Sensation- WNL bilateral lower extremities Balance/Special Test Scores Oswestry Low Back Score: 26 Goals Goal 1:: Pt. will be able to sit for at least 1 hour with back pain < 5/10. Goal Time Frame: 4-6 Weeks Goal 2:: Pt. will be able to stand/walk for at least 30 minutes with back pain < 5/10. Goal Time Frame: 4-6 Weeks Goal 3:: Pt. will be able to sleep a full night with no pain. Goal Time Frame: 4-6 Weeks Goal 4:: Pt. will rate back pain at worst at 5/10 with ADL's. Goal Time Frame: 4-6 Weeks Goal 5:: Pt. will be able to lift at least 30# with proper body mechanics and back pain < 5/10. Goal Time Frame: 4-6 Weeks Goal 6:: Pt. will improve low back Oswestry to < 42% disability in order to improve mobility. Goal Time Frame: 4-6 Weeks Rehabilitation Potential Physical Therapy Diagnosis: Decreased neck, core, back, and hip strength, posture, and pain. Pt. presents at this time with chronic cervicalgia and low back pain without radiculopathy. Rehabilitation Potential: Fair Anticipated Interventions Patient/Client Instruction: Educate patient on: Condition, Plan of Care and Benefits of Fitness Program For the Purpose of:: To decrease pain, To improve ability to perform ADL's, To improve performance and independence with ADL's, To assume or resume ADL's and To improve tolerance to ADL's Therapeutic Exercise to Include: Strength training, Body mechanics, Postural training, Flexibilty training, In an aquatic setting , Active ROM, Dynamic Lumbar Stabilization, Kapil Exercises and Scapular Strength/Stabilization Comment: Begin aquatic physical therapy initially to work on improving UE strength, core, back, and hip strengthening. Progress to land therapy when able. For the Purpose of:: To decrease pain, To improve ability to perform ADL's, To improve performance and independence with ADL's, To assume or resume ADL's, To improve health and function and To improve tolerance to ADL's Functional Training to Include: ADL Training For the Purpose of:: To decrease pain, To improve ability to perform ADL's, To improve performance and independence with ADL's, To assume or resume ADL's and To improve tolerance to ADL's Manual Therapy Techniques to Include: Mobilization and Soft tissue mobilization For the Purpose of:: To decrease pain, To improve ability to perform ADL's, To improve performance and independence with ADL's, To assume or resume ADL's and To improve tolerance to ADL's TENS: Yes IF ES: Yes Cryotherapy (ice pack, ice massage): Yes Thermo therapy (hot pack): Yes For the Purpose of:: To decrease pain, To improve ability to perform ADL's, To improve performance and independence with ADL's, To assume or resume ADL's and To improve tolerance to ADL's Text: Thank you for the opportunity to evaluate your patient. For Medicare and Medicare HMO plans, please review the plan of care and approve it. It will need to be FAXED BACK to us at [phone] for Medicare purposes. For Medicare only, by signing this I certify the plan of care. Please let me know if there are questions or concerns regarding this plan of care. Physician Signatur e: Date:
--- NOTE | 2023-01-25 11:59 | HP.PTREVAL ---
Re-Evaluation Intro: Dr. Janes Hess MD, It has been my pleasure to treat VISHAL DIAZ over the last 7 visits for Cervicalgia, M54.2; Chronic neck and back pain. Please see the progress note below for an update on the physical therapy plan of care! Subjective Subjective: Pt. reports having xays today throughout her spine. Pt. reports her greatest pain at mid thoracic spine. Pt. reports having some occassional N/T in her R leg and R arm at times. She reports overall not much change with aquatic therapy at this point in time. Objective Objective/Function: ROM: Lumbar spine: flexion min loss increase NW, exten min increase NW, SB min loss increase NW bilat, rotation min loss increase NW. Thoracic spine: extens mod loss decrease NB, flexion normal no effect. rotation min/mod loss increase NW. MMT: 5/5 strength throughout BLEs. Core strength- poor. Scapular strength 4/5 throughout. POSTURE: Pt. has increased lumbar lordosis, increased thoracic kyphosis as well. Pt. has marked issues with her posture, but is very stiff to correct her excessive thoracic kyphosis. I was able to improve with over pressure, but not maintain. I would recommend that we work on thoracic mobility into extension. Plan Plan Plan: Progress to land PT. Add in seated or prone thoracic mobility, scapular strengthening. Work on progressing HEP for above limitations. Balance/Gait/Functional tests Balance/Special Test Scores Oswestry Low Back Score: 26 Goals Goals Goal 1:: Pt. will be able to sit for at least 1 hour with back pain < 5/10. Goal Time Frame: 4-6 Weeks Goal Progress: Not Progressing Goal 2:: Pt. will be able to stand/walk for at least 30 minutes with back pain < 5/10. Goal Time Frame: 4-6 Weeks Goal Progress: Not Progressing Goal 3:: Pt. will be able to sleep a full night with no pain. Goal Time Frame: 4-6 Weeks Goal Progress: Progressing Goal 4:: Pt. will rate back pain at worst at 5/10 with ADL's. Goal Time Frame: 4-6 Weeks Goal Progress: Not Progressing Goal 5:: Pt. will be able to lift at least 30# with proper body mechanics and back pain < 5/10. Goal Time Frame: 4-6 Weeks Goal Progress: Progressing Goal 6:: Pt. will improve low back Oswestry to < 42% disability in order to improve mobility. Goal Time Frame: 4-6 Weeks Goal Progress: Progressing Anticipated Interventions Anticipated Interventions Patient/Client Instruction: Educate patient on: Condition, Plan of Care and Benefits of Fitness Program For the Purpose of:: To decrease pain, To improve ability to perform ADL's, To improve performance and independence with ADL's, To assume or resume ADL's and To improve tolerance to ADL's Therapeutic Exercise to Include: Strength training, Body mechanics, Postural training, Flexibilty training, In an aquatic setting , Active ROM, Dynamic Lumbar Stabilization, Kapil Exercises and Scapular Strength/Stabilization Comment: Begin aquatic physical therapy initially to work on improving UE strength, core, back, and hip strengthening. Progress to land therapy when able. For the Purpose of:: To decrease pain, To improve ability to perform ADL's, To improve performance and independence with ADL's, To assume or resume ADL's, To improve health and function and To improve tolerance to ADL's Functional Training to Include: ADL Training For the Purpose of:: To decrease pain, To improve ability to perform ADL's, To improve performance and independence with ADL's, To assume or resume ADL's and To improve tolerance to ADL's Manual Therapy Techniques to Include: Mobilization and Soft tissue mobilization For the Purpose of:: To decrease pain, To improve ability to perform ADL's, To improve performance and independence with ADL's, To assume or resume ADL's and To improve tolerance to ADL's TENS: Yes IF ES: Yes Cryotherapy (ice pack, ice massage): Yes Thermo therapy (hot pack): Yes For the Purpose of:: To decrease pain, To improve ability to perform ADL's, To improve performance and independence with ADL's, To assume or resume ADL's and To improve tolerance to ADL's Re-Evaluation Ending Re-evaluation ending: Please do not hesitate to contact me at [phone] by phone or if you have questions or concerns regarding this new plan of care! Sincerely, Royal Sherwood DPT
== END 2023-03-01 19:00 | disposition home or self-care (01) ==
LOC: PT 08:00
PROVIDERS: PCP Internal Medicine; Referring Provider Internal Medicine; Visit Provider Internal Medicine
DX: M54.2 Cervicalgia (principal); G89.29 Other chronic pain; M54.9 Dorsalgia, unspecified
CPT/HCPCS: 97110; 97113; 97140; 97162; 97164

== ENCOUNTER → 2023-04-06 | Outpatient (CLI) | payer MEDICAID, SELFPAY ==
[2023-04-06 17:09] LABS: Absolute Neutrophil Count 4.8 X10^3/uL (2.0-7.7); Basophil# 0.06 X10^3/uL; Basophil% 0.8 % (0-1); Eosinophil# 0.45 X10^3/uL; Eosinophils% 5.7 % (0-5); Hematocrit 43.6 % (37-47); Hemoglobin 12.7 g/dL (12.0-15.0); Lymphocyte % 26.7 % (19-41); Mean Corp Hgb Conc 29.1 g/dL (32-36); Mean Corpuscular Hgb 21.8 pg (27.0-32.0); Mean Corpuscular Volume 74.8 fL (81-99); Mean Platelet Vol. 9.9 fl (6.2-12.0); Monocyte# 0.44 X10^3/uL; Monocyte% 5.6 % (0-10); NRBC Flagged by Analyzer 0 % (0-5); Neutrophil # 4.79 X10^3/uL (2.7-7.7); Neutrophil % 60.8 % (47-70); Platelet Count 376 K/mm3 (150-450); RBC Distribution Width CV 17.2 % (11.6-14.6); RBC Distribution Width SD 45.3 fl (35.1-43.9); Red Blood Count 5.83 M/mm3 (4.2-5.4); White Blood Count 7.9 K/mm3 (4.4-11.0)
[2023-04-06 17:21] LABS: ALB/GLOB Ratio 0.9 RATIO (0.9-2.4); AST(SGOT) 17 U/L (15-37); Alanine Aminotransfer ALT/SGPT 28 U/L (13-56); Albumin, Serum 3.8 g/dL (3.2-5.0); Alkaline Phosphatase 83 U/L (45-117); Anion Gap 6 (5-15); BUN 13 mg/dL (7-18); BUN/Creat Ratio 16.8 RATIO (10-20); Calcium,Total 9.6 mg/dL (8.5-10.1); Chloride 106 mmol/L (98-107); Cholesterol 225 mg/dL (200); Creatinine, Serum 0.77 mg/dL (0.55-1.02); EST Glomerular Filtration Rate 91 mL/min (>60); Est Glom Filt Rate - Afr Amer 110 mL/min (>60); Globulin 4.2 g/dL (2.2-4.2); Glucose 85 mg/dL (74-106); High Density Lipoprotein 51 mg/dL; Potassium 3.6 mmol/L (3.5-5.1); Rheumatoid Factor < 10.0 IU/mL (<15); Sodium Level 136 mmol/L (136-145); Triglycerides 232 mg/dL; Very Low Density Lipoprotein 46 mg/dL (5-40)
[2023-04-06 17:22] LABS: Erythrocyte Sedimentation Rate 29 mm/hr (0-30)
[2023-04-10 12:09] LABS: ANTINUCLEAR ANTIBODIES DIRECT Negative (Negative)
[2023-04-13 12:09] LABS: HLA B27 Negative (.)
== END | disposition home or self-care (01) ==
LOC: BIMLAB 15:08
PROVIDERS: PCP Internal Medicine; Referring Provider Internal Medicine; Visit Provider Internal Medicine
DX: M19.90 Unspecified osteoarthritis, unspecified site (principal); I10 Essential (primary) hypertension; M54.9 Dorsalgia, unspecified; G89.29 Other chronic pain
CPT/HCPCS: 36415; 80053; 80061; 81374; 85025; 85652; 86038; 86140; 86225; 86235; 86431

== ENCOUNTER → 2023-07-20 | Outpatient (CLI) | payer MEDICAID, SELFPAY ==
--- OUTSIDE RECORDS SUMMARY | 2023-07-20 10:23 | XMS RPT_ITS | CCD ---
Author Name Unknown Address [address] [place] [address] Organization [facility] Care Team Providers Care Addressing Machine Operator Name Role Phone Yulissa Sanchez Unavailable Unavailable SANCHEZ D.O., YULISSA M Unavailable Unavail able Daniel Yulissa Unavailable Unavailable Jacques, Vicky Unavailable Unavailable SANCHEZ D.O., YULISSA M Unavailable Unavail able SANCHEZ D.O., YULISSA M Unavailable Unavail able Jacques, Vicky Unavailable Unavailable SANCHEZ D.O., YULISSA M Unavailable Unavail able SANCHEZ D.O., YULISSA M Unavailable Unavail able RAFFY CASTRO Referring Unavailab ROBIN Salazar Attending Unavailable OLEGHE, EFEWONGBE B Primary Care Unavailable ROWENA HICKMAN Referring Unavailable OLEGHE, EFEWONGBE B Primary Care Unavailable SUKHWINDER VASQUES Attending Unavailable RAFFY CASTRO Referring Unavailab MINA Lopez Attending Unavailable OLEGHE, EFEWONGBE B Primary Care Unavailable RAFFY CASTRO Referring Unavailab ROBIN Salazar Attending Unavailable OLESTACEYE, EFEWONGBE B Primary Care Unavailable RAFFY CASTRO Referring Unavailab ROWENA Cordero Attending Unavailable OLEGHE, EFEWONGBE B Primary Care Unavailable OLEGHE, EFEWONGBE B Primary Care Unavailable RAFFY CASTRO Attending Unavailab RAFFY Rivera Referring Unavailab SAMMY Rodriguez Attending Unavailable Allergies Allergy Classification Reported Allergen(s) Allergy Type Date of Onset Reaction(s) Facility (2 sources) Etonogestrel; Translations: [ETONOGESTREL] Drug Allergy 07-21-2014 [facility] Repository (2 sources) Levonorgestrel; Translations: [LEVONORGESTREL] Drug Allergy 07-31-2016 [facility] Repository Problems Problem Classification Problem Date Documented Da te Episodic/Chronic Diabetes mellitus without complication (2 sources) Type 2 diabetes mellitus without complications; Translations: [Type 2 diabetes mellitus without complications] Onset: 08-01-2017 Chronic Malaise and fatigue (2 sources) Chronic fatigue, unspecified; Translations: [Chronic fatigue, unspecified] Onset: 08-01-2017 Chronic Other aftercare (2 sources) senior living (current) use of insulin; Translations: [senior living (current) use of insulin] Onset: 08-01-2017 Episodic Results Test Name Value Interpretation Reference Range Facil ity Encounters Encounter Date Encounter Type Care Provider Facility Start: 03-08-2023 End: 03-08-2023 ambulatory SAMMY WOOTEN Facility:[facility] Start: 01-16-2022 End: 01-16-2022 ambulatory JESSICA GROVES [facility] Start: 12-19-2021 End: 12-19-2021 ambulatory RAFFY CASTRO [facility] Start: 11-10-2021 End: 11-10-2021 ambulatory RAFFY CASTRO [facility] Start: 10-27-2021 End: 10-27-2021 ambulatory RAFFY CASTRO [facility] Start: 10-14-2021 End: 10-14-2021 ambulatory ROWENA HICKMAN [facility] Start: 09-21-2021 End: 09-21-2021 ambulatory RAFFY CASTRO [facility] Start: 08-01-2017 Ambulatory Yulissa [facility] Start: 12-03-2016 Ambulatory [facility] Start: 11-06-2016 Ambulatory [facility] Payers Date Payer Category Payer Medicaid [id number] 1990 Unknown [id number] 2.16. [id number] 1990 Unknown [id number] 1990 Unknown [id number] 2.16. [id number] 1990 Unknown [id number] 2.16. [id number] 1990 Unknown [id number] 2.16. [id number] 1990 Unknown [id number] 2.16. [id number] Unknown Unknown [id number] Progress note 03-08-2023 Note Date & Type Note Facility 03-08-2023 Note HNO ID: [id number] Author: Sammy Wooten PA-C Service: ? Author Type: Physician Outsole Leveler Type: Progress Notes Filed: 03/08/2023 10:52 AM Note Text: [facility] [address] [place] [address] 03/08/2023 ASSESSMENT AND PLAN: Assessment : Encounter Diagnosis ICD-10-CM 1. Strain of lumbar region, initial encounter S39.012A tiZANidine (ZANAFLEX) 4 mg tablet CONSULT TO PHYSICAL THERAPY 2. Morbid obesity (HCC) E66.01 CONSULT BARIATRIC/METABOLIC INSTITUTE CONSULT TO PHYSICAL THERAPY 3. Spinal stenosis of lumbar region with neurogenic claudication M48.062 CONSULT TO PHYSICAL THERAPY MRI LUMBAR SPINE WO IVCON Discussion: Ms. Aaron is a 33-year-old female here for evaluation of low back pain, right greater than left lower extremity radiating pain into the anterior thigh, thoracic pain in axial distribution, and bilateral shoulder pain. She also mentions the fact that she has some right hip pain She has had 2 courses of supervised PT this year, one of them aquatic. Both were done outside of [facility] She has had x-rays of cervical, thoracic, lumbar spine outside of [facility]. She brought in x-ray reports on her phone but did not bring in any actual records for inclusion into her [facility] chart. EXAM Highlights: She is slow to mobilize from sitting to standing posture and takes her moment to achieve an erect stance. She has normal posture when she stands and walks. There is overall hypersensitivity to palpation in cervical, shoulders, thoracic, lumbar, posterior pelvis regions. Light palpation of the skin seemed to create an exaggerated pain response She has normal neurologic function in terms of strength, reflexes, and sensory in lower extremities today. Voluntary sitting SLR reproduces back pain on the right side but no radiating leg pain IMAGING: She showed me x-ray reports of cervical, thoracic, lumbar spine from [facility]. These reports were on her phone and I read through each. There did not appear to be any fractures, dislocations, listhesis, scoliosis noted. Thoracic region identified increased mid to upper thoracic kyphosis and facet arthrosis at multiple levels SUMMARY/PLAN: She does experience hypersensitivity to pain and even to light palpation in multiple areas suggestive of possible fibromyalgia. She would need further evaluation through her PCP or rheumatology to review that possibility further. Regarding her spine, I would have her consider MRI scan of the lumbar to rule out nerve compression that might be causing her right lower extremity radiating symptoms She will try to get her x-ray films and physical therapy visit reports to us for inclusion into her [facility] chart. She is interested in bariatric consultation for nonsurgical weight management but mentions that she has transportation issues and restrictions regarding how far she would be able to travel for this type of service. I told her I could try short-term muscle relaxant but would not be refilling the medication. She will need to check in with her PCP if there is an ongoing need, especially if she was eventually diagnosed with fibromyalgia. Plan : DIAGNOSTIC TESTING: -An MRI is ordered to better delineate the soft tissue structures contributing to the patient's current symptoms, including the intervertebral disks, facet joints, spinal ligaments and neural elements. The study will aid with evaluating the need for, and planning, future interventional procedures. REFERAL FOR SERVICES: -Physical therapy will be instituted. MEDICATIONS: -See prescribed medication list for this encounter. ACTIVITY RECOMMENDATIONS: -The patient is encouraged to avoid bed rest and maintain normal activity. -The patient is encouraged to exercise regularly as tolerated. -The patient advised to avoid prolonged sitting. NUTRITION RECOMMENDATIONS: -The patient is carrying a significant amount of weight above an ideal BMI. We discussed how this impacts overall health and back pain. FOLLOW-UP: -The patient is instructed to follow up after studies are complete. -The patient is instructed to return after six weeks of therapy. ADDITIONAL DISCUSSION: -We discussed the difference between hurt vs harm as it relates to chronic pain. This document has been created with the use of voice recognition technology. It may contain inaccuracies: (e.g. misspellings, inaccurate syntax or word sense) that have escaped review. Time spent: 50 minutes today with this patient visit. This includes [id number] time, review of chart records regarding conservative care history, spine-pertinent imaging, and communication/care coordination with referring provider, problem-specific history-taking and counseling/education regarding treatment options. cc: No referring provider defined for this encounter. P (more content not included)... [facility] Clinical Note 10-14-2021 Note Date & Type Note Facility 10-14-2021 Note Pediatric Cardiology Echocardiogram Visit: Consultation REASON FOR CONSULTATION: Vishal Aaron is a 31 y.o. old female being seen today in our Cardiology Clinic at the request of Rowena Hickman for our opinion or medical advice regarding cardiac evaluation in the context of maternal obesity and diabetes as well as family history of atrial septal defect. HPI: Vishal Aaron is a 31 y.o. year old female who is referred for echocardiogram today due to inability to see the heart well on obstetrical ultrasound. Patient has diabetes preceding this , as well as hypertension and obesity. The father of the baby had an atrial septal defect surgically closed. The patient's chart and all pertinent notes, labs, and studies were reviewed today as part of this visit. Vishal Aaron attended today's visit by herself. Prior obstetrical ultrasound at 19 weeks' gestation could not see the heart well. Given patient's history, she was referred for echocardiogram. The patient is currently 22 weeks' gestation, with an CRIS of 02/12/22. This has been complicated by pre-existing type II DM, morbid obesity, chronic hypertension, anxiety, depression, and THC use. She has had no serious illnesses during this , and no hospital stays. Current medications in use during this : buspar, labetalol, insulin, and PNV. She has also been prescribed Lexapro, but has not yet started this medication. She is also experiencing shoulder blade pain today due to a muscular knot. CURRENT PROBLEM LIST: Patient Active Problem List Diagnosis Body mass index, pediatric, greater than or equal to 95th percentile for age Obesity, unspecified Unspecified essential hypertension Anemia, unspecified Other disorder of menstruation and other abnormal bleeding from female genital tract CURRENT MEDICATIONS: Current Outpatient Medications Medication Sig Dispense Refill BUSPIRONE HCL PO Take by mouth [id number]-Szn-Ci-[id number] ( VITAMINS PO) Take by mouth daily labetalol (NORMODYNE) 200 MG tablet Take 200 mg by mouth 2 times daily Indications: High Blood Pressure insulin Lispro 100 UNIT/ML SOLN injection Inject 8 Units into the skin 2 times daily (before meals) Indications: Type 2 Diabetes, Before breakfast and before dinner Insulin NPH, Human,, Isophane, 100 UNIT/ML SUPN Inject into the skin FIBER PO Take by mouth daily escitalopram (LEXAPRO) 5 MG tablet ferrous sulfate (FEOSOL) 325 (65 FE) MG TABS tablet Take by mouth 2 times daily. (Patient not taking: Reported on 10/14/2021) 3 medroxyPROGESTERone (PROVERA) 10 MG tablet Take by mouth daily. (Patient not taking: Reported on 10/14/2021) 1 No current facility-administered medications for this visit. PAST MEDICAL HISTORY: Past Medical History: Diagnosis Date Allergic state Hypertension Type 2 diabetes mellitus without complications PAST SURGICAL HISTORY: History reviewed. No pertinent surgical history. ALLERGIES: Allergies Allergen Reactions Nexplanon [Etonogestrel] Other (See Comments) Skin irritation Mirena [Levonorgestrel] Other (See Comments) Patient states this contraceptive device will not stay in place; causes irritation. FAMILY/SOCIAL HISTORY: Family History Problem Relation Age of Onset Chdhd Hrt Surg Other ASD repair Congenital Heart Disease Other with ASD, s/p surgical repair The patient has two other children who are healthy. Social History Socioeconomic History Marital status: Single Spouse name: None Number of children: None Years of education: None Highest education level: None Tobacco Use Smoking status: Every Day Pack years: 0.00 Types: Cigarettes Passive exposure: Never Smokeless tobacco: Never echocardiogram findings: This was a technically challenging echocardiogram with extremely poor echocardiographic windows due to maternal body habitus and positioning. The lie was transverse at the time of this study. biometry matched the current age of approximately 22 weeks' gestation. Segmental anatomy: SUMMARY: 1. HPI and indications: Maternal obesity complicating , history of atrial septal defect in the father of the baby. 2. Study data: Extremely difficult and limited study due to maternal body habitus and position. 3. Normal four chamber view. The great arteries cross eachother normally. Normal aorta and pulmonary artery size on limited three vessel view. Probable left aortic arch based on same. Normal doppler tracings across the atrioventricular and semilunar valves. Normal biventricular size and systolic function. No pericardial effusion Normal sinus rhythm with appropriate heart rate = 141 bpm. 4. Findings limited to the above and that noted below. 5. This study is limited in evaluating minor valve abnormalities, septal de (more content not included)... [facility] Summary Purpose Family History No Family History Records FoundNo Family History Records FoundNo Family History Records FoundNo Family History Records Found Advance Directives No Advanced Directives Records FoundNo Advanced Directives Records FoundNo Advanced Directives Records FoundNo Advanced Directives Records Found Additional Source Comments INFORMATION SOURCE (unrecogn ized section and content) DATE CREATED AUTHOR AUTHOR'S ORGANIZ ATION 10/31/2017 [facility] DATE CREATED AUTHOR AUTHOR'S ORGANIZ ATION 01/16/2022 [facility] DATE CREATED AUTHOR AUTHOR'S ORGANIZ ATION 03/09/2023 [facility] FOR RECORDS PERTAINING TO PATIENTS WHO ARE OR HAVE BEEN ENROLLED IN A CHEMICAL DEPENDENCY/SUBSTANCEABUSE PROGRAM, SOME INFORMATION MAY BE OMITTED. This clinical summary was aggregated from multiple sources. Caution should be exercised in using it in the provision of clinical care. This summary normalizes information from multiple sources, and as a consequence, information in this document may materially change the coding, format and clinical context of patient data. In addition, data may be omitted in some cases. CLINICAL DECISIONS SHOULD BE BASED ON THE PRIMARY CLINICAL RECORDS. [email or web address] [facility]. provides no warranty or guarantee of the accuracy or completeness of information in this document.
[2023-07-20 12:49] LABS: Absolute Lymphocyte Count 1.58 X10^3/uL (0.83-4.51); Absolute Neutrophil Count 3.3 X10^3/uL (2.0-7.7); Basophil# 0.04 X10^3/uL; Basophil% 0.7 % (0-1); Eosinophil# 0.28 X10^3/uL; Hemoglobin 10.8 g/dL (12.0-15.0); Lymphocyte # 1.58 X10^3/ul (0.83-4.51); Lymphocyte % 28.3 % (19-41); Mean Corp Hgb Conc 28.4 g/dL (32-36); Mean Corpuscular Hgb 20.7 pg (27.0-32.0); Mean Corpuscular Volume 72.7 fL (81-99); Mean Platelet Vol. 10.4 fl (6.2-12.0); Monocyte# 0.41 X10^3/uL; Monocyte% 7.3 % (0-10); NRBC Flagged by Analyzer 0 % (0-5); Neutrophil # 3.25 X10^3/uL (2.7-7.7); Neutrophil % 58.3 % (47-70); Platelet Count 358 K/mm3 (150-450); RBC Distribution Width CV 19.4 % (11.6-14.6); RBC Distribution Width SD 46.5 fl (35.1-43.9); Red Blood Count 5.23 M/mm3 (4.2-5.4); White Blood Count 5.6 K/mm3 (4.4-11.0)
[2023-07-20 13:15] LABS: T4 Free Direct 0.83 ng/dL (0.76-1.46); Thyroid Stim Hormone (TSH) 1.46 uIU/mL (0.358-3.74)
[2023-07-23 10:21] LABS: Ferritin 4 ng/mL (8-252); Iron 49 ug/dL (50-170); Iron Binding Capacity,Total 507 ug/dL (250-450)
== END | disposition home or self-care (01) ==
LOC: BIMLAB 09:47
PROVIDERS: PCP Internal Medicine; Visit Provider Internal Medicine
DX: D64.9 Anemia, unspecified (principal); E11.9 Type 2 diabetes mellitus without complications; N92.6 Irregular menstruation, unspecified
CPT/HCPCS: 36415; 82728; 83540; 83550; 84439; 84443; 85025

== ENCOUNTER 2023-08-08 18:59 | Emergency (ER) | payer MEDICAID, SELFPAY ==
[2023-08-08 19:00] VITALS: BP 172/100; PULSE 136; RESP 18; TEMP 39.4; O2SAT 100
[2023-08-08 19:01] VITALS: BP 172/100; PULSE 136; RESP 20; TEMP 39.4; O2SAT 100
[2023-08-08 20:01] VITALS: BP 111/59; PULSE 105; RESP 18; TEMP 38.9; O2SAT 97
[2023-08-08 21:00] VITALS: BP 112/51; PULSE 98; RESP 14; TEMP 37.2; O2SAT 98
[2023-08-08 21:10] VITALS: BMI 49.8
--- NOTE | 2023-08-08 21:10 | EX.ED.DYSGE1 ---
HPI History of Present Illness Chief Complaint: Fever Informant: patient Onset/Context/Timing Onset: Today Context: Sudden Onset Timing: Continuous Quality: Cramping Location: Lower back, lower abdomen, pelvis Worsened by: Nothing Relieved by: Nothing Narrative Narrative: Patient presents with a fever that began today. Patient states it came on suddenly today. Patient states it has been constant. Patient states it went up to 103 at home. Patient states she develops pain in her back and pelvis whenever she gets a fever. Patient describes her pain as cramping. Patient states it is in her low back, pelvis, and lower abdomen. Patient states nothing makes it better nothing makes it worse. Patient admits to some nausea and vomiting. Patient also admits to some pain in her chest and a headache. [facility] Medical History Abnormal Pap smear of cervix Anemia Anemia affecting Anxiety Arthritis Chronic back pain Chronic hypertension Chronic hypertension affecting Chronic neck and back pain Diabetes Diabetes mellitus Family history of cleft lip and palate Family history of congenital heart defect Fibroids Fibromyalgia Hypertension Iron deficiency anemia Iron deficiency anemia due to chronic blood loss Menstrual abnormality Morbid obesity Pre-eclampsia PTSD (post-traumatic stress disorder) Seasonal allergies Type 2 diabetes mellitus Home Medications pen needle, diabetic 31 gauge x 3/16 (Lite Touch Insulin Pen [place]) #200 ea 06/09/22 [Rx Last Taken Unknown] multivit,Ca,byx-ieiw-PM-guarana-caff 18 mg iron-400 mcg-180 mg tablet (One-A-Day Women's Active) tab PO DAILY 08/09/22 [History Last Taken Unknown] buspirone 10 mg tablet 20 mg (2 x 10 mg) PO BID anxiety 2 months #240 tabs 12/08/22 [Rx Last Taken Unknown] insulin degludec 100 unit/mL (3 mL) subcutaneous pen (Tresiba FlexTouch U-100 insulin) 34 unit (0.34 mL) subcut QHS 3 months #30.6 mL 12/08/22 [Rx Last Taken Unknown] insulin lispro 100 unit/mL subcutaneous pen (Humalog KwikPen (U-100) Insulin) 40 unit (0.4 mL) subcut QACHS Check with primary doctor 3 months #144 mL 12/08/22 [Rx Last Taken Unknown] magnesium oxide 420 mg tablet 420 mg PO DAILY 04/06/23 [History Last Taken Unknown] FreeStyle Fili 2 Sensor (flash glucose sensor) #2 ea 04/13/23 [Rx Last Taken Unknown] empagliflozin 25 mg tablet (Jardiance) See Rx Instructions .Route .COMPLEX #90 tabs 07/20/23 [Rx Last Taken Unknown] losartan 100 mg-hydrochlorothiazide 25 mg tablet 1 tab PO DAILY #90 tabs 07/20/23 [Rx Last Taken Unknown] topiramate 25 mg tablet (Topamax) 25 mg PO BID #180 tabs 07/20/23 [Rx Last Taken Unknown] Allergy/AdvReac Type Severity Reaction Status Date / Time etonogestrel [From Nexplanon] Allergy Swelling Verified 08/02/23 09:00 levonorgestrel [From Mirena] Allergy Other Verified 08/02/23 09:00 Family History Father Diabetes Kidney disease Hypertension Heart disease Mother Depression Diabetes Heart disease Grandmother Dementia Aunt Thyroid cancer Fredrick's disease Surgical History diagnostic laparoscopy H/O dilation and curettage H/O removal of cyst History of dilation and curettage Hx of tubal ligation Previous section S/P surgical removal of pilonidal cyst Social History adopted: No household members: spouse, children and other details: 1 step son in home number of children: 3 current occupational status: unemployed current occupation: [employer] pets and animals: Yes pets and animals: cat(s), dog(s), fish and snake(s) Smoking Status: Former smoker alcohol intake: never substance use type: marijuana and other details: rare use/not since caffeine: Yes (rare) what type of physical activity do you participate in: none seatbelt use: always do you feel safe at home: Yes additional social history: - Tino GONZALEZ ROS ED Constitutional Constitutional ED: Reports fever(s); Denies chills Eyes Eyes: Denies blurry vision or change in vision ENT ENT ED: Denies rhinorrhea or sore throat Cardiovascular Cardiovascular: Reports chest pain; Denies palpitations Respiratory/Chest Respiratory/Chest: Denies cough or dyspnea Gastrointestinal Gastrointestinal: Reports abdominal pain, nausea and vomiting Genitourinary Genitourinary ED: Denies dysuria or hematuria Musculoskeletal Musculoskeletal: Reports back pain; Denies neck pain Integumentary Denies abscess or rash Neurologic Neurologic: Reports headache(s); Denies weakness Allergic/Immunologic Allergic/Immunologic ED: Denies mouth swelling or urticaria EXAM Physical Exam Const Vital Signs: 08/08/23 19:00 08/08/23 19:01 08/08/23 20:01 Temperature 102.9 F H 102.9 F H 102.0 F H Temperature Source Oral Temporal Oral Pulse Rate 136 H 136 H 105 H Respiratory Rate 18 20 H 18 Respiratory Effort Respiratory Pattern Blood Pressure 172/100 H 172/100 H 111/59 L Blood Pressure Mean 124 124 76 Pulse Ox 100 100 97 Oxygen Delivery Method Room Air Room Air Room Air 08/08/23 20:00 08/08/23 21:00 08/08/23 22:00 Temperature 99.0 F 98.0 F Temperature Source Oral Oral Pulse Rate 98 82 Respiratory Rate 14 18 Respiratory Effort Normal Respiratory Pattern Normal Blood Pressure 112/51 L 102/67 Blood Pressure Mean 71 78 Pulse Ox 98 97 Oxygen Delivery Method Room Air Room Air Positive well nourished, well developed and obese General Appearance ED: well developed and NAD Nutritional Appearance: obese HEENT Reports moist mucous membranes Neck supple and no JVD Resp normal respiratory effort and clear to auscultation bilaterally Cardio regular rate and regular rhythm GI non-distended Palpation: soft and tender epigastric, LLQ, RLQ, LUQ, RUQ, periumbilical and suprapubic Neuro oriented x3, CN's II-XII intact bilaterally and no sensory deficits noted Sensorium / Orientation: alert Motor Exam: strength 5/5 throughout Psych mental status grossly normal MDM MDM MDM Narrative Medical decision making narrative: Differential diagnosis includes pneumonia, upper respiratory infection, urinary tract infection, gastroenteritis, and viral illness. The patient came to therapy for pneumonia. And appropriately. Her current anemia. Basic metabolic profile will be obtained to assess for electrolyte abnormality and renal function. Urinalysis will be obtained to assess for urinary tract infection or hematuria. COVID-19, influenza, and RSV PCR will be obtained to assess for viral illness. Lab Data Attestation: I reviewed the patient's lab results. Lab results narrative: CBC was reviewed. There is a leukocytosis of 15.4. Hemoglobin 5.7 and hematocrit was 32.8. Platelets were normal. Basic metabolic profile was reviewed. Potassium was low at 3.2. The remainder was within normal limits. Urinalysis was reviewed. There is no evidence of urinary tract infection or hematuria. COVID-19 PCR was reviewed and was negative. Influenza PCR was reviewed and was negative for influenza A and influenza B. RSV PCR was reviewed and was negative. Labs: Laboratory Results - last 24 hr 08/08/23 08/08/23 20:15 21:17 WBC 15.4 H RBC 4.62 Hgb 9.7 L Hct 32.8 L MCV 71.0 L MCH 21.0 L MCHC 29.6 L RDW Std Deviation 47.3 H RDW Coeff of Ranjana 18.9 H Plt Count 364 MPV 9.6 Immature Gran % (Auto) 0.600 Neut % (Auto) 89.0 H Lymph % (Auto) 5.1 L [place] % (Auto) 4.3 Eos % (Auto) 0.7 Baso % (Auto) 0.3 Absolute Neuts (auto) 13.7 H Absolute Lymphs (auto) 0.78 L Nucleated RBC % 0 Sodium 136 Potassium 3.2 L Chloride 103 Carbon Dioxide 25.0 Anion Gap 8 BUN 16 Creatinine 0.80 Estim Creat Clear Calc 149.44 Est GFR (MDRD) Af Amer 106 Est GFR (MDRD) Non-Af 87 BUN/Creatinine Ratio 20.0 Glucose 93 Calcium 9.2 Urine Color Yellow Urine Clarity Sl. Cloudy Urine pH 5.0 Ur Specific [place] 1.020 Urine Protein 15 H Urine Glucose (UA) 1000 H Urine Ketones 5 H Urine Occult Blood 150 H Urine Nitrite Negative Urine Bilirubin Negative Urine Urobilinogen Normal Ur Leukocyte Esterase Negative Urine RBC 0-5 SEEN Urine WBC 0 SEEN Ur Squamous Epith Cells 5-10 SEEN Urine Bacteria 1+ Urine Mucus 1+ Radiography Chest X-Ray - ED: 2 View, Read by ED Physician and Read by Radiologist Diagnostic Testing: Clinical Impression(s) from Imaging Studies Chest X-Ray 08/08/23 21:20 IMPRESSION: No acute disease Electronically Signed: Yg Martin MD at 22:44 EDT Reading Location ID and State: [facility] / [place] Tel , Service support , [place] and lateral chest x-ray was obtained. There are 2 views. On my independent interpretation, lung handy are clear. There is normal cardiac silhouette. Bony thorax is normal. There is no acute process noted. Radiologist also interpreted the x-ray and agrees. Treatment and Re-Evaluation :: Patient was given IV fluids and Tylenol. Patient was advised of her findings. Patient was instructed to continue Tylenol and ibuprofen as needed for any aches or fevers. Patient was instructed to drink plenty of fluids. Patient was instructed to follow-up with her primary care physician in 5 to 7 days. Patient understood and was agreeable with the plan. All questions were answered. Discharge Plan Triage Chief Complaint: Fever ED Provider: Yazan Steiner Dx/Rx/DC Orders Clinical Impression: Viral illness, Morbid obesity, Fibromyalgia Instructions: ED Viral Syndrome (Adult) Prescriptions: No Action (DME) pen needle, diabetic [Lite Touch Insulin Pen [place]] 31 gauge x 3/16 needle See Rx Instructions .Route Qty: 200 3RF Rx Instructions: As directed One-A-Day Women's Active 18 mg iron- 400 mcg-180 mg tablet PO DAILY buspirone 10 mg tablet 20 mg PO BID 60 Days Qty: 240 2RF insulin lispro [Humalog KwikPen Insulin] 100 unit/mL insulin pen 40 unit subcut QACHS 90 Days Qty: 144 3RF insulin degludec [Tresiba FlexTouch U-100] 100 unit/mL (3 mL) insulin pen 34 unit subcut QHS 90 Days Qty: 30.6 2RF magnesium oxide 420 mg tablet 420 mg PO DAILY Jardiance 25 mg tablet See Rx Instructions .ROUTE .COMPLEX Qty: 90 2RF Dose Instruction: TAKE 1 TABLET BY MOUTH IN THE MORNING Rx Instructions: TAKE 1 TABLET BY MOUTH IN THE MORNING losartan-hydrochlorothiazide 100-25 mg tablet 1 tab PO DAILY Qty: 90 2RF topiramate [Topamax] 25 mg tablet 25 mg PO BID Qty: 180 1RF Rx Instructions: Take 25 mg QHS x 1 week then increase to BID (DME) FreeStyle Fili 2 Sensor Kit See Rx Instructions .ROUTE .MEDSUPPLY Qty: 2 6RF Rx Instructions: As directed Primary Care Provider: Janes Hess Referrals: Janes Hess MD [Primary Care Provider] - 5-7 Days Disposition Disposition: Home, Self Care
[2023-08-08 21:11] VITALS: BMI 49.8
[2023-08-08] MEDS: 0.9% Normal Saline (1000mL) 1,000 ML 1000 ML IV (21:12)
[2023-08-08] MEDS: Acetaminophen 500 MG Tablet 1000 MG PO (21:18)
--- NOTE | 2023-08-08 21:20 | RAD_ITS ---
STUDY: X-RAY CHEST REASON FOR EXAM: Female, 33 years old. Fever TECHNIQUE: Frontal and lateral views of the chest. COMPARISON: Chest x-ray May 29, 2019 FINDINGS: The lungs are clear and expanded. There is no demonstrated pleural abnormality. Normal size heart. Normal mediastinum and sun. Normal visualized pulmonary arteries. Normal visualized aortic arch and descending thoracic aorta. Moderate kyphosis and wedging at the thoracolumbar junction unchanged. Normal visualized ribs, clavicles, and shoulders. There is no demonstrated abnormality of the visualized soft tissue structures of the upper abdomen. RAD/Chest PA and Lateral IMPRESSION: No acute disease Electronically Signed: Yg Martin MD at 22:44 EDT ,
[2023-08-08 21:25] LABS: Absolute Lymphocyte Count 0.78 X10^3/uL (0.83-4.51); Absolute Neutrophil Count 13.7 X10^3/uL (2.0-7.7); Basophil# 0.05 X10^3/uL; Basophil% 0.3 % (0-1); Eosinophils% 0.7 % (0-5); Hematocrit 32.8 % (37-47); Hemoglobin 9.7 g/dL (12.0-15.0); Lymphocyte # 0.78 X10^3/ul (0.83-4.51); Lymphocyte % 5.1 % (19-41); Mean Corp Hgb Conc 29.6 g/dL (32-36); Mean Platelet Vol. 9.6 fl (6.2-12.0); Monocyte# 0.66 X10^3/uL; Monocyte% 4.3 % (0-10); NRBC Flagged by Analyzer 0 % (0-5); Neutrophil # 13.69 X10^3/uL (2.7-7.7); Platelet Count 364 K/mm3 (150-450); RBC Distribution Width CV 18.9 % (11.6-14.6); RBC Distribution Width SD 47.3 fl (35.1-43.9); Red Blood Count 4.62 M/mm3 (4.2-5.4); White Blood Count 15.4 K/mm3 (4.4-11.0)
[2023-08-08 21:26] LABS: Color, Urine Yellow (Yellow); Glucose, Dipstick 1000 mg/dl (Normal); Ketone-Dipstick 5 mg/dl (Negative); Leukocyte Esterase-Dipstick Negative /ul (Negative); Nitrite-Dipstick Negative (Negative); Occult Blood-Urine 150 /ul (Negative); Protein-Dipstick 15 mg/dl (Negative); Urine Bilirubin Dipstick Negative (Negative); Urine Clarity Sl. Cloudy (Clear); Urine Urobilinogen Normal (Normal); White Blood Cells 0 SEEN /hpf (0-5)
[2023-08-08 21:36] LABS: Anion Gap 8 (5-15); BUN 16 mg/dL (7-18); Calcium,Total 9.2 mg/dL (8.5-10.1); Chloride 103 mmol/L (98-107); EST Glomerular Filtration Rate 87 mL/min (>60); Est Glom Filt Rate - Afr Amer 106 mL/min (>60); Estimated Creatinine Clearance 149.44 ml/min; Glucose 93 mg/dL (74-106); Potassium 3.2 mmol/L (3.5-5.1); Sodium Level 136 mmol/L (136-145)
[2023-08-08 21:38] LABS: Mucous, Urine 1+ /hpf (<or=2+); Squamous Epithelial Cells - UA 5-10 SEEN /hpf (5-10)
[2023-08-08 21:39] LABS: Bacteria 1+ /hpf (None Seen); Red Blood Cells-Urine 0-5 SEEN /hpf (0-5)
[2023-08-08 22:00] VITALS: BP 102/67; PULSE 82; RESP 18; TEMP 36.7; O2SAT 97
[2023-08-08 23:00] VITALS: BP 111/69; PULSE 88; RESP 16; TEMP 37.1; O2SAT 100
== END 2023-08-08 23:14 | disposition home or self-care (01) ==
PROVIDERS: Emergency Provider Emergency Medicine; PCP Internal Medicine; Visit Provider Emergency Medicine
DX: B34.9 Viral infection, unspecified (principal); E66.01 Morbid (severe) obesity due to excess calories; E11.9 Type 2 diabetes mellitus without complications; Z79.4 Long term (current) use of insulin; R11.2 Nausea with vomiting, unspecified; F12.90 Cannabis use, unspecified, uncomplicated; M54.9 Dorsalgia, unspecified; M79.7 Fibromyalgia; G89.29 Other chronic pain; I10 Essential (primary) hypertension; R50.9 Fever, unspecified; Z87.891 Personal history of nicotine dependence; R51.9 Headache, unspecified
CPT/HCPCS: 71046; 80048; 81001; 85025; 87631; 96360; 99283; J7030; A4216

== ENCOUNTER 2023-09-14 08:54 | Outpatient (CLI) | payer MEDICAID, SELFPAY ==
[2023-09-14 09:34] LABS: Absolute Lymphocyte Count 1.85 X10^3/uL (0.83-4.51); Absolute Neutrophil Count 3.2 X10^3/uL (2.0-7.7); Basophil# 0.05 X10^3/uL; Basophil% 0.9 % (0-1); Eosinophil# 0.26 X10^3/uL; Eosinophils% 4.6 % (0-5); Hematocrit 42.7 % (37-47); Hemoglobin 13.1 g/dL (12.0-15.0); Lymphocyte # 1.85 X10^3/ul (0.83-4.51); Lymphocyte % 32.6 % (19-41); Mean Corp Hgb Conc 30.7 g/dL (32-36); Mean Corpuscular Hgb 24.6 pg (27.0-32.0); Mean Corpuscular Volume 80.3 fL (81-99); Mean Platelet Vol. 9.9 fl (6.2-12.0); Monocyte% 5.3 % (0-10); NRBC Flagged by Analyzer 0 % (0-5); Neutrophil # 3.19 X10^3/uL (2.7-7.7); Neutrophil % 56.1 % (47-70); POSITIVE MORPHOLOGY YES; Platelet Count 246 K/mm3 (150-450); RBC Distribution Width CV 24.1 % (11.6-14.6); RBC Distribution Width SD 67.5 fl (35.1-43.9); RET-HE 30.1 pg (30-35); Red Blood Count 5.32 M/mm3 (4.2-5.4); Reticulocyte Count 2.08 % (0.5-1.5); White Blood Count 5.7 K/mm3 (4.4-11.0)
[2023-09-14 09:46] LABS: Differential Indicated SCAN CRITERIA MET
[2023-09-14 10:07] LABS: Anisocytosis 1+
[2023-09-14 10:09] LABS: Ferritin 89 ng/mL (8-252); Iron 92 ug/dL (50-170); Iron Binding Capacity,Total 346 ug/dL (250-450); PERCENT IRON SATURATION 26.6 % (15.0-55.0)
== END 2023-09-14 23:59 | disposition home or self-care (01) ==
LOC: LAB 08:55
PROVIDERS: PCP Internal Medicine; Referring Provider Internal Medicine Hematology & Oncology; Visit Provider Internal Medicine Hematology & Oncology
DX: D50.0 Iron deficiency anemia secondary to blood loss (chronic) (principal)
CPT/HCPCS: 36415; 82728; 83540; 83550; 85025; 85045

== ENCOUNTER → 2023-10-11 | Outpatient (CLI) | payer MEDICAID, SELFPAY ==
--- NOTE | 2023-10-11 16:08 | US_ITS ---
INDICATION: heavy menstrual bleeding. EXAMINATION: Ultrasound US Pelvis Non OB Limited With Transvaginal Imaging TECHNIQUE: Transabdominal and transvaginal (for optimal evaluation of the adnexa) pelvic ultrasound was performed. Grayscale, spectral waveform, and color flow Doppler evaluation of the adnexa. COMPARISON: No relevant prior comparison study available FINDINGS: UTERUS: Anteverted. The uterus measures 11 x 5.2 x 4.5 cm. There is no uterine mass. Nabothian cyst is seen in the cervix. The endometrial stripe measures 16 mm in AP diameter which is mildly thickened for a premenopausal patient. RIGHT OVARY: Not visualized. LEFT OVARY: 6.8 x 7.8 x 4.6 cm. There is a 4.7 x 4.7 x 4.2 cm cyst in the left ovary. There is normal arterial inflow and venous outflow present in the left ovary. FREE FLUID: None. US/Transvaginal Non- IMPRESSION: 1. Mild thickening of the endometrium. Follow-up examination following menstruation might be of value. 2. Left ovarian cyst. Electronically Signed: Tomi Rivero MD at 9:35 EDT ,
== END | disposition home or self-care (01) ==
LOC: US 16:07
PROVIDERS: PCP Internal Medicine; Referring Provider Registered Nurse; Visit Provider Registered Nurse
DX: R87.619 Unspecified abnormal cytological findings in specimens from cervix uteri (principal); D50.0 Iron deficiency anemia secondary to blood loss (chronic); N92.6 Irregular menstruation, unspecified
CPT/HCPCS: 76830; 76856

== ENCOUNTER → 2023-10-19 | Outpatient (CLI) | payer MEDICAID, SELFPAY ==
[2023-10-19 13:10] LABS: Anion Gap 10 (5-15); BUN 15 mg/dL (7-18); BUN/Creat Ratio 20.8 RATIO (10-20); Calcium,Total 9.9 mg/dL (8.5-10.1); Chloride 101 mmol/L (98-107); Creatinine, Serum 0.72 mg/dL (0.55-1.02); EST Glomerular Filtration Rate 99 mL/min (>60); Est Glom Filt Rate - Afr Amer 119 mL/min (>60); Glucose 119 mg/dL (74-106); Sodium Level 138 mmol/L (136-145)
== END | disposition home or self-care (01) ==
LOC: BIMLAB 10:26
PROVIDERS: PCP Internal Medicine; Visit Provider Internal Medicine
DX: E11.9 Type 2 diabetes mellitus without complications (principal)
CPT/HCPCS: 36415; 80048

== ENCOUNTER 2023-11-28 10:46 | Emergency (ER) | payer MEDICAID, SELFPAY ==
[2023-11-28 10:46] VITALS: BP 140/84; PULSE 87; RESP 14; TEMP 36.6; O2SAT 98
--- NOTE | 2023-11-28 11:10 | RAD_ITS ---
STUDY: X-RAY - LEFT FOOT CLINICAL: Female, 33 years old. Pain following injury. Bruising. TECHNIQUE: 3 view(s) of the foot. COMPARISON: None. FINDINGS: There is an enthesophyte involving the posterior superior calcaneus at the site of insertion of the Achilles tendon. Normal visualized subtalar, talonavicular, calcaneocuboid, tarsal and tarsometatarsal articulations. Normal metatarsi. Normal metatarsophalangeal joint of the great toe. Normal tibial and fibular sesamoid bones. Normal interphalangeal joint of the great toe. Normal phalanges of the great toe. Normal second through fifth metatarsophalangeal joints. Normal interphalangeal joints and phalanges of the lesser toes. The soft tissue structures are unremarkable. RAD/Foot min 3 Views IMPRESSION: Small spur at the surgery of the Achilles tendon. Electronically Signed: Jatin Davis MD at 11:49 EDT ,
--- NOTE | 2023-11-28 11:10 | RAD_ITS ---
STUDY: X-RAY - LEFT ANKLE REASON FOR EXAM: Female, 33 years old. Injury TECHNIQUE: 3 view(s) of the ankle. COMPARISON: None. FINDINGS: Normal visualized distal tibia and fibula. Normal medial and lateral malleoli. Normal tibiotalar articulation and ankle mortise. Small spur is seen at this region of decreased tendon. The visualized subtalar, talonavicular, calcaneocuboid and tarsal articulations are normal. Soft tissue swelling RAD/Ankle min 3 Views IMPRESSION: Soft tissue swelling. Electronically Signed: Jatin Davis MD at 11:53 EDT ,
--- NOTE | 2023-11-28 11:14 | EDS_ITS ---
HPI History of Present Illness Chief Complaint: Lower Extremity Injury Informant: patient Narrative Narrative: 33-year-old female presenting to the emergency room with a chief complaint of left ankle injury. Patient states that she tripped while on her way to the park this morning with her children. She notes swelling of the left ankle and pain. She notes that she felt and heard a pop and a crunch. Patient states that around a week ago while walking to the library she also rolled her ankle and had pain. She denies any other injuries. She denies any knee pain or. Knee pain. [facility] Medical History Right-sided chest pain Iron deficiency anemia due to chronic blood loss Iron deficiency anemia Anemia Menstrual abnormality Fibromyalgia Arthritis Chronic neck and back pain Chronic back pain Morbid obesity Type 2 diabetes mellitus Anxiety Pre-eclampsia Chronic hypertension Diabetes mellitus Chronic hypertension affecting Family history of congenital heart defect Anemia affecting Family history of cleft lip and palate PTSD (post-traumatic stress disorder) Seasonal allergies Fibroids Abnormal Pap smear of cervix Hypertension Diabetes Home Medications ?Medication ?Instructions ?Recorded ?Last Taken ?Type multivit,Ca,lgr-pakr-RH-guarana-caff tab PO DAILY 08/09/22 Unknown History 18 mg iron-400 mcg-180 mg tablet (One-A-Day Women's Active) buspirone 10 mg tablet 20 mg (2 x 10 mg) PO BID anxiety 2 12/08/22 Unknown Rx months #240 tabs insulin degludec 100 unit/mL (3 34 unit (0.34 mL) subcut QHS 3 12/08/22 Unknown Rx mL) subcutaneous pen (Tresiba months #30.6 mL FlexTouch U-100 insulin) insulin lispro 100 unit/mL 40 unit (0.4 mL) subcut QACHS 12/08/22 Unknown Rx subcutaneous pen (Humalog KwikPen Check with primary doctor 3 months (U-100) Insulin) #144 mL magnesium oxide 420 mg tablet 420 mg PO DAILY 04/06/23 Unknown History empagliflozin 25 mg tablet See Rx Instructions .Route 07/20/23 Unknown Rx (Jardiance) .COMPLEX #90 tabs losartan 100 1 tab PO DAILY #90 tabs 07/20/23 Unknown Rx mg-hydrochlorothiazide 25 mg tablet pen needle, diabetic 31 gauge x #200 ea 08/14/23 Unknown Rx 5/16 (Unifine Pentips) tranexamic acid 650 mg tablet 650 mg PO Q8H 5 days #15 tabs 08/24/23 Unknown Rx naltrexone 8 mg-bupropion 90 mg 2 tab PO BID 3 months #360 tabs 10/19/23 Unknown Rx tablet,extended release (Contrave) FreeStyle Fili 2 Sensor (flash #2 ea 11/07/23 Unknown Rx glucose sensor) Allergy/AdvReac Type Severity Reaction Status Date / Time etonogestrel (From Nexplanon) Allergy Swelling Verified 11/28/23 10:47 levonorgestrel (From Mirena) Allergy Other Verified 11/28/23 10:47 Family History Father Diabetes Kidney disease Hypertension Heart disease Mother Depression Diabetes Heart disease Grandmother Dementia Aunt Thyroid cancer Fredrick's disease Surgical History Hx of tubal ligation Previous section S/P surgical removal of pilonidal cyst H/O dilation and curettage diagnostic laparoscopy History of dilation and curettage H/O removal of cyst Social History adopted: No household members: spouse, children and other details: 1 step son in home number of children: 3 current occupational status: unemployed current occupation: [employer] pets and animals: Yes pets and animals: cat(s), dog(s), fish and snake(s) Smoking Status: Former smoker alcohol intake: never substance use type: marijuana and other details: rare use/not since caffeine: Yes (rare) what type of physical activity do you participate in: none seatbelt use: always do you feel safe at home: Yes additional social history: - Tino ROS ROS ED Constitutional Constitutional ED: Denies chills or weight loss Eyes Eyes: Denies change in vision or diplopia ENT ENT ED: Denies ear pain, rhinorrhea or sore throat Cardiovascular Cardiovascular: Denies chest pain, orthopnea, palpitations or racing heartbeat Respiratory/Chest Respiratory/Chest: Denies cough, dyspnea or orthopnea Gastrointestinal Gastrointestinal: Denies abdominal pain, diarrhea, nausea or vomiting Genitourinary Genitourinary ED: Denies dysuria, hematuria or urinary frequency Musculoskeletal Musculoskeletal: Reports other Details: See history of present illness ; Denies arthralgias or myalgias Integumentary Denies abscess or rash Neurologic Neurologic: Denies headache(s) or weakness Psychiatric Psychiatric: Denies anxiety, depression, suicidal ideation or suicidal thoughts Endocrine Endocrinology: Denies polydipsia, polyphagia or polyuria Allergic/Immunologic Allergic/Immunologic ED: Denies mouth swelling, tongue swelling or urticaria EXAM Physical Exam Const Vital Signs: 11/28/23 10:46 Temperature 98 F Temperature Source Temporal Pulse Rate 87 Respiratory Rate 14 Blood Pressure 140/84 H Blood Pressure Mean 102 Pulse Ox 98 Oxygen Delivery Method Room Air Positive well nourished and well developed General Appearance ED: well developed and NAD HEENT Reports normocephalic, head/scalp atraumatic and moist mucous membranes Eyes PERRL and EOMs intact bilaterally Neck no lymphadenopathy, supple and no JVD Resp normal respiratory effort and clear to auscultation bilaterally Cardio regular rate, regular rhythm and no murmurs GI normal to inspection, nondistended, normoactive bowel sounds and non-tender Palpation: soft Back/Spine no CVA tenderness and normal ROM Extremity Extremity Narrative: Patient has swelling and ecchymosis over the lateral aspect of the left ankle extending onto the anterior surface of the foot. There are some mild edema along the MTP joint of the first second and third digits. Achilles palpates and functionally appears intact. No fibular head tenderness. No fifth metatarsal pain. General Extremety ED: Negative for edema General Extremity: Negative for edema Neuro oriented x3 and CN's II-XII intact bilaterally Sensorium / Orientation: alert Motor Exam: strength 5/5 throughout Psych mental status grossly normal Mood & Affect: Negative for depressed or tearful Skin no rashes or lesions noted and no wounds MDM MDM MDM Narrative Medical decision making narrative: Differential diagnosis includes but not limited to ankle fracture ankle sprain foot fracture foot sprain Achilles tendon rupture fibular head fracture My independent interpretation plain films of the left foot and ankle is no acute fracture. Soft tissue swelling noted. Patient will be placed in Gary wrap. Would recommend ice Motrin and rest. Follow-up primary care 10 to 14 days return if worsening or concerns History & Record Review Discussion w/independent historian: Patient Radiography Diagnostic Testing: Clinical Impression(s) from Imaging Studies Ankle X-Ray 11/28/23 11:10 IMPRESSION: Soft tissue swelling. Electronically Signed: Jatin Davis MD at 11:53 EDT , Foot X-Ray 11/28/23 11:10 IMPRESSION: Small spur at the surgery of the Achilles tendon. Electronically Signed: Jatin Davis MD at 11:49 EDT , Discharge Plan Triage Chief Complaint: Lower Extremity Injury ED Provider: Piotr Watters Dx/Rx/DC Orders Clinical Impression: Ankle sprain, Foot sprain Instructions: ED Foot Sprain, ED Ankle Sprain (Adult) Prescriptions: No Action One-A-Day Women's Active 18 mg iron- 400 mcg-180 mg tablet PO DAILY buspirone 10 mg tablet 20 mg PO BID 60 Days Qty: 240 2RF insulin lispro [Humalog KwikPen Insulin] 100 unit/mL insulin pen 40 unit subcut QACHS 90 Days Qty: 144 3RF insulin degludec [Tresiba FlexTouch U-100] 100 unit/mL (3 mL) insulin pen 34 unit subcut QHS 90 Days Qty: 30.6 2RF magnesium oxide 420 mg tablet 420 mg PO DAILY Jardiance 25 mg tablet See Rx Instructions .ROUTE .COMPLEX Qty: 90 2RF Dose Instruction: TAKE 1 TABLET BY MOUTH IN THE MORNING Rx Instructions: TAKE 1 TABLET BY MOUTH IN THE MORNING losartan-hydrochlorothiazide 100-25 mg tablet 1 tab PO DAILY Qty: 90 2RF Contrave 8-90 mg tablet extended release 2 tab PO BID 90 Days Qty: 360 1RF tranexamic acid 650 mg tablet 650 mg PO Q8H 5 Days Qty: 15 3RF (DME) pen needle, diabetic [Unifine Pentips] 31 gauge x 5/16 needle See Rx Instructions .ROUTE .COMPLEX Qty: 200 3RF Dose Instruction: USE As directed Rx Instructions: USE As directed (DME) Smartfield Fili 2 Sensor Kit See Rx Instructions .[facility]OUTE .[facility] Qty: 2 6RF Rx Instructions: As directed Primary Care Provider: Janes Hess Referrals: Janes Hess MD [Primary Care Provider] - 10-14 Days if not better Print Language: Djibout[place] Disposition Disposition: Home, Self Care
[2023-11-28 12:17] VITALS: BP 142/68; PULSE 82; RESP 18; TEMP 36.6; O2SAT 99
== END 2023-11-28 12:18 | disposition home or self-care (01) ==
PROVIDERS: Emergency Provider Emergency Medicine; PCP Internal Medicine; Visit Provider Emergency Medicine
DX: S93.409A Sprain of unspecified ligament of unspecified ankle, initial encounter (principal); E11.9 Type 2 diabetes mellitus without complications; Z79.4 Long term (current) use of insulin; F12.90 Cannabis use, unspecified, uncomplicated; I10 Essential (primary) hypertension; Z98.51 Tubal ligation status; Z87.891 Personal history of nicotine dependence; M54.9 Dorsalgia, unspecified; G89.29 Other chronic pain; W22.8XXA Striking against or struck by other objects, initial encounter; Y92.830 Public park as the place of occurrence of the external cause
CPT/HCPCS: 73610; 73630; 99282

== ENCOUNTER 2024-04-12 19:24 | Emergency (ER) | payer OTHER, MEDICAID, SELFPAY ==
[2024-04-12 19:25] VITALS: BP 143/86; PULSE 74; RESP 18; TEMP 36; O2SAT 100; BMI 49.4
--- NOTE | 2024-04-12 21:58 | CT_ITS ---
INDICATION: Trauma EXAMINATION: CT FACIAL BONES - CT Maxillofacial W/O Contrast Injection TECHNIQUE: Helically acquired images were obtained of the facial bones. A radiation dose optimization technique was used for this scan. The protocol utilizes one or more of the following dose reduction techniques: automated exposure control, adjustment of mA and/or kV according to patient size,and/or use of iterative reconstruction technique. IV Contrast dosage and agent: None. RADIATION DOSAGE (If Supplied By Facility): CTDIvol = ( 29.38 ) mGy, DLP = ( 532.76 ) mGycm COMPARISON: FINDINGS: SOFT TISSUES: No focal subcutaneous swelling. No discrete fluid collections. VISUALIZED PARANASAL SINUSES: Probable right maxillary sinus retention cyst. VISUALIZED MASTOID AIR CELLS: Clear. FACIAL BONES, MANDIBLE AND TMJs: No displaced facial bone fracture. No lytic or blastic abnormality. VISUALIZED DENTITION: No periodontal osseous erosion. ORBITAL CONTENTS: Both globes, extraocular muscles and retrobulbar fat appear unremarkable. CT/Sinus/Facial Bone IMPRESSION: No acute bony injury of the facial bones. Electronically Signed: Gunnar Hightower DO at 23:03 EST Reading Location ID and State: [facility] / [place] Tel [phone], Service support ,
--- NOTE | 2024-04-12 21:58 | RAD_ITS ---
INDICATION: trauma twisted ankle EXAMINATION/TECHNIQUE: X-RAY - LEFT XR Ankle Min 3 Views 3 VIEWS COMPARISON: Prior study dated: 11/28/2023 FINDINGS: BONES: No fracture demonstrated. JOINTS: No dislocation. SOFT TISSUES: Unremarkable. RAD/Ankle min 3 Views IMPRESSION: No evidence of fracture. Electronically Signed: Gail Yuan MD at 23:05 EST ,
--- NOTE | 2024-04-12 22:08 | ED.VIS.FALL ---
HPI HPI - Fall History of Present Illness Chief Complaint: Fall Narrative Narrative: Chief complaint and HPI: Left ankle pain and left periorbital eye pain. 34-year-old female who works at [employer] presents for evaluation after fall. Patient states that she accidentally twisted her left ankle at work and then fell and hit her left face on equipment. She denies LOC. Not on blood thinners. Patient denies injury elsewhere. She was able to ambulate into the emergency department. She denies headache, neck pain, eye pain, vision changes or loss. Review of systems: See HPI Medications: As listed on the chart Allergies: As listed on the chart PFSH: Per chart Vital signs: As listed on the chart. Reviewed. Physical exam: Gen: A&O x3, NAD Head: Normocephalic, atraumatic Eyes: No sclera icterus, conjunctiva clear, PERRL, EOMI without pain, mild periorbital ecchymosis of the left eye-mostly at the lateral aspect-mildly tender to palpation ENT: TMs clear BL, moist mucous membranes, no swelling/lacerations/blood in the mouth or the nares, No nasal septal hematoma Neck: Trachea midline, No JVD, Nontender, full range of motion CV: RRR, no murmurs, no chest wall TTP Resp: Lungs CTA BL, no w/r/c GI: Abd soft, non-distended, non-tender, no r/r/g Musc: Full ROM, no deformity, no spinal TTP, no andrés step-offs, mild swelling to the left lateral malleolus with mild tenderness-no ecchymosis-no deformity, left foot, calf, knee nontender to palpation, no Achilles tenderness to palpation, DP/PT pulses plus 2 out of 4 bilaterally Skin: Warm, dry, intact Neuro: Alert, oriented, grossly intact, sensation intact, GCS 15 Psych: Cooperative, appropriate mood and affect [facility] Medical History (Updated 04/12/24 @ 23:[address] Satnam Puentes, ) Flu vaccine need Right-sided chest pain Iron deficiency anemia due to chronic blood loss Iron deficiency anemia Anemia Menstrual abnormality Fibromyalgia Arthritis Chronic neck and back pain Chronic back pain Morbid obesity Type 2 diabetes mellitus Anxiety Pre-eclampsia Chronic hypertension Diabetes mellitus Chronic hypertension affecting Family history of congenital heart defect Anemia affecting Family history of cleft lip and palate PTSD (post-traumatic stress disorder) Seasonal allergies Fibroids Abnormal Pap smear of cervix Hypertension Diabetes Home Medications ?Medication ?Instructions ?Recorded ?Last Taken ?Type multivit,Ca,mgj-qxru-XO-guarana-caff tab PO DAILY 08/09/22 Unknown History 18 mg iron-400 mcg-180 mg tablet (One-A-Day Women's Active) buspirone 10 mg tablet 20 mg (2 x 10 mg) PO BID anxiety 2 12/08/22 Unknown Rx months #240 tabs magnesium oxide 420 mg tablet 420 mg PO DAILY 04/06/23 Unknown History losartan 100 1 tab PO DAILY #90 tabs 07/20/23 Unknown Rx mg-hydrochlorothiazide 25 mg tablet pen needle, diabetic 31 gauge x #200 ea 08/14/23 Unknown Rx 5/16 (Unifine Pentips) insulin lispro 100 unit/mL 40 unit (0.4 mL) subcut QACHS 12/31/23 Unknown Rx subcutaneous pen (Humalog KwikPen Check with primary doctor 3 months (U-100) Insulin) #144 mL empagliflozin 25 mg tablet See Rx Instructions .Route 01/24/24 Unknown Rx (Jardiance) .COMPLEX #90 tabs FreeStyle Fili 2 Sensor (flash #2 ea 02/11/24 Unknown Rx glucose sensor) insulin degludec 100 unit/mL (3 34 unit (0.34 mL) subcut QHS 3 02/11/24 Unknown Rx mL) subcutaneous pen (Tresiba months #30.6 mL FlexTouch U-100 insulin) duloxetine 30 mg capsule,delayed 30 mg PO QDAY #30 caps 02/21/24 Unknown Rx release tranexamic acid 650 mg tablet 650 mg PO ONCE #15 TABLETS 04/08/24 Unknown Rx Allergy/AdvReac Type Severity Reaction Status Date / Time etonogestrel (From Nexplanon) Allergy Swelling Verified 04/12/24 19:25 levonorgestrel (From Mirena) Allergy Other Verified 04/12/24 19:25 Family History Father Diabetes Kidney disease Hypertension Heart disease Mother Depression Diabetes Heart disease Grandmother Dementia Aunt Thyroid cancer Fredrick's disease Surgical History Hx of tubal ligation Previous section S/P surgical removal of pilonidal cyst H/O dilation and curettage diagnostic laparoscopy History of dilation and curettage H/O removal of cyst Social History adopted: No household members: spouse, children and other details: 1 step son in home number of children: 3 current occupational status: unemployed current occupation: [employer] pets and animals: Yes pets and animals: cat(s), dog(s), fish and snake(s) Smoking Status: Former smoker alcohol intake: never substance use type: marijuana and other details: rare use/not since caffeine: Yes (rare) what type of physical activity do you participate in: none seatbelt use: always do you feel safe at home: Yes additional social history: - [employer] EXAM Physical Exam Const Vital Signs: 04/12/24 19:25 04/12/24 21:52 Temperature 96.8 F L Temperature Source Temporal Pulse Rate 74 Respiratory Rate 18 Respiratory Effort Normal Non-Labored Respiratory Depth Normal Respiratory Pattern Normal Blood Pressure 143/86 H Blood Pressure Mean 105 Pulse Ox 100 Oxygen Delivery Method Room Air MDM MDM MDM Narrative Medical decision making narrative: 34-year-old female who works at [employer] presents for evaluation after fall. She endorses left ankle pain as well as left periorbital eye pain. See physical exam findings. Differential diagnosis includes but is not limited to fracture, contusion, sprain. No CT head or neck needed at this time per CT [place]ic head and Nexus criteria. Given patient's tenderness and ecchymosis will obtain CT of the face to assess for fracture as well as x-ray of the left ankle. Patient states that she took Motrin earlier. I did offer her further pain medication but she declined. CT face without acute traumatic injury. X-ray of the left ankle was interpreted by me ED physician no fracture or dislocation. Patient is stable to discharge home. She is able to ambulate in emergency department without difficulty. Follow-up with Worker's Comp. Tylenol Motrin as needed for pain. She confirmed understand the plan. Impression: 1. Left ankle sprain 2. Left periorbital contusion 3. Mechanical fall Radiography Diagnostic Testing: Clinical Impression(s) from Imaging Studies Ankle X-Ray 04/12/24 21:58 IMPRESSION: No evidence of fracture. Electronically Signed: Gail Yuan MD at 23:05 EST , Facial/Sinus 04/12/24 21:58 IMPRESSION: No acute bony injury of the facial bones. Electronically Signed: Gunnar Hightower DO at 23:03 EST , Discharge Plan Triage Chief Complaint: Fall ED Provider: Satnam Puentes Dx/Rx/DC Orders Clinical Impression: Left ankle sprain, Contusion of periorbital region, left Instructions: Treating Ankle Sprains, Bruises (Contusions) Prescriptions: No Action One-A-Day Women's Active 18 mg iron- 400 mcg-180 mg tablet PO DAILY buspirone 10 mg tablet 20 mg PO BID 60 Days Qty: 240 2RF magnesium oxide 420 mg tablet 420 mg PO DAILY losartan-hydrochlorothiazide 100-25 mg tablet 1 tab PO DAILY Qty: 90 2RF duloxetine 30 mg capsule,delayed release(DR/EC) 30 mg PO QDAY Qty: 30 1RF (DME) pen needle, diabetic [Unifine Pentips] 31 gauge x 5/16 needle See Rx Instructions .ROUTE .COMPLEX Qty: 200 3RF Dose Instruction: USE As directed Rx Instructions: USE As directed insulin lispro [Humalog KwikPen Insulin] 100 unit/mL insulin pen 40 unit subcut QACHS 90 Days Qty: 144 3RF Jardiance 25 mg tablet See Rx Instructions .ROUTE .COMPLEX Qty: 90 1RF Dose Instruction: TAKE 1 TABLET BY MOUTH IN THE MORNING Rx Instructions: TAKE 1 TABLET BY MOUTH IN THE MORNING (DME) FreeStyle Fili 2 Sensor Kit See Rx Instructions .ROUTE .MEDSUPPLY Qty: 2 6RF Rx Instructions: As directed insulin degludec [Tresiba FlexTouch U-100] 100 unit/mL (3 mL) insulin pen 34 unit subcut QHS 90 Days Qty: 30.6 2RF tranexamic acid 650 mg tablet 650 mg PO ONCE Qty: 15 1RF Primary Care Provider: Janes Hess Referrals: Janes Hess MD [Primary Care Provider] - 3-5 Days Activity Restrictions/Additional Instructions: [facility]up with the [facility] for [facility] medicine for your Worker's Comp. Tylenol and Motrin as needed for pain. Print Language: British Disposition Disposition: Home, Self Care Discharge Date/Time: 04/12/24 23:48
[2024-04-12 23:24] VITALS: PULSE 75; RESP 8; O2SAT 98
== END 2024-04-12 23:48 | disposition home or self-care (01) ==
PROVIDERS: Emergency Provider Surgery; PCP Internal Medicine; Visit Provider Surgery
DX: S93.402A Sprain of unspecified ligament of left ankle, initial encounter (principal); E11.9 Type 2 diabetes mellitus without complications; Z79.4 Long term (current) use of insulin; Z87.891 Personal history of nicotine dependence; S05.12XA Contusion of eyeball and orbital tissues, left eye, initial encounter; I10 Essential (primary) hypertension; W18.39XA Other fall on same level, initial encounter; Y99.0 Civilian activity done for income or pay; Y92.89 Other specified places as the place of occurrence of the external cause; F41.9 Anxiety disorder, unspecified; Z79.899 Other long term (current) drug therapy; Z79.84 Long term (current) use of oral hypoglycemic drugs; Z98.51 Tubal ligation status
CPT/HCPCS: 70486; 73610; 99282